=== PATIENT | male | born 1965 | race Caucasian/White ===

== ENCOUNTER 2018-07-05 20:32 | Inpatient (IN) | payer OTHER ==
[~2018-07-05] VITALS: Ht 182.9 cm; Wt 80.6 kg
[2018-07-05] MEDS ORDERED: SOD CHLORIDE 0.9% 1,000 ML IV SCH (20:35)
[2018-07-05] MEDS ORDERED: DOCUSATE SODIUM 100 MG CAP PO PRN (21:00)
[2018-07-05] MEDS ORDERED: BISACODYL (EC) 5 MG TAB PO PRN (21:00)
[2018-07-05] MEDS ORDERED: NACL 0.9% 3 ML SYG IV SCH (21:00)
[2018-07-05] MEDS ORDERED: ACETAMINOPHEN 325 MG TAB PO PRN ×2 (21:00)
[2018-07-05] MEDS ORDERED: ONDANSETRON 4 MG INJ IV PRN (21:00)
--- NOTE | 2018-07-05 21:18 | ERD ---
ER Documentation Chief Complaint Chief Complaint FLANK PAIN HPI 52-year-old gentleman transferred from [facility] for diagnosis of dehydration, gastroenteritis, acute on chronic renal failure. Patient will be boarding in the emergency room because no beds are available currently. He has no complaints. ROS All systems reviewed and are negative except as per history of present illness. Allergies Allergies: Coded Allergies: lisinopril (Verified Allergy, Unknown, 07/05/18) metformin (Verified Allergy, Unknown, 07/05/18) PMhx/Soc History of Surgery: Yes (RIGHT BKA) Anesthesia Reaction: No Hx Neurological Disorder: Yes (SEIZURES) Hx Respiratory Disorders: No Hx Cardiac Disorders: Yes (HTN) Hx Psychiatric Problems: No Hx Miscellaneous Medical Probl: Yes Hx Alcohol Use: No Hx Substance Use: No Hx Tobacco Use: Yes Smoking Status: Former smoker FmHx Family History: other Physical Exam Vitals Vital Signs Date Temp Pulse Resp B/P (MAP) Pulse Ox O2 O2 Flow FiO2 Time Delivery Rate 07/05/18 98.1 58 18 154/77 98 Room Air 20:59 (102) 07/05/18 98.1 20:59 Physical Exam General: Well developed, well nourished, no acute distress Head: Normocephalic, atraumatic. Eyes: EOM intact ENT: Moist mucous membranes Neck: Full ROM Respiratory: No respiratory distress Cardiovascular: Well perfused distally Abdominal: Nondistended : Deferred MSK: No edema, no unilateral swelling, 5/5 strength Neurologic: Alert and oriented, moving all extremities, normal speech Skin: No rash Psych: Normal mood Results 24 hrs Current Medications Medications Dose Sig/Lalo Start Time Status Last (Trade) Ordered Route PRN Stop Time Admin Dose Reason Admin Ondansetron 4 mg BRIDGE ORDER 07/05/18 HCl (Zofran PRN IV 21:00 Inj) NAUSEA/VOMITI 07/06/18 20:59 NG 650 mg ER BRIDGE 07/05/18 Acetaminophen PRN PO 21:00 (Tylenol .MILD PAIN 07/06/18 20:59 Tab) 1-3 OR TEMP Sodium 1,000 ml @ [id number] IV 07/05/18 UNV Chloride 80 mls/hr 20:35 IV Flush 3 ml PER 07/05/18 UNV (NS 3 ml) PROTOCOL IV 21:00 Ondansetron 4 mg Q6H PRN 07/05/18 UNV HCl (Zofran IV 21:00 Inj) NAUSEA/VOMITI NG 650 mg Q6H PRN 07/05/18 UNV Acetaminophen PO .PAIN 1-3 21:00 (Tylenol OR TEMP Tab) Docusate 100 mg Q12H PRN 07/05/18 UNV Sodium PO 21:00 (Colace) .CONSTIPATION Bisacodyl 5 mg DAILY PRN 07/05/18 UNV (Dulcolax) PO 21:00 .CONSTIPATION Heparin 5,000 unit Q8 SC 07/05/18 UNV Sodium 22:00 (Porcine) (Heparin (5000 Units/1ml)) Procedures/MDM Patient will be boarding in the emergency room. Admitting team notified. Patient is hemodynamically stable without evidence of emergent medical condition. Accepting care team and consultations: I discussed the current laboratory data, diagnostic imaging and emergency care provided. Admitting team: Dr. Villa Admitting team indication: Insurance directed Departure Diagnosis: Primary Impression: Acute on chronic renal failure Acute renal failure type: unspecified Additional Impressions: Dehydration Gastroenteritis Condition: Stable JESSICA BOWEN MD July 05, 2018 21:17
[2018-07-05] MEDS ORDERED: HEPARIN 5,000 UNIT/1 ML VIAL SC SCH (22:00)
[2018-07-05 22:30] VITALS: BP 184/84; PULSE 57; RESP 18
[2018-07-05 23:13] VITALS: Ht 182.9 cm; Wt 80.6 kg
[2018-07-05] MEDS ORDERED: GLIP5TAB13 PO (23:47)
[2018-07-05] MEDS ORDERED: LEVE-5 PO (23:47)
[2018-07-06] MEDS ORDERED: EYE RELIEF BOTH EYES PRN
[2018-07-06] MEDS ORDERED: DOCU-144 PO ×2 (00:03)
[2018-07-06] MEDS ORDERED: HYDR-3672 PO (00:03)
[2018-07-06] MEDS ORDERED: ASC500 PO (00:03)
[2018-07-06] MEDS ORDERED: ZINC220C5 PO (00:03)
[2018-07-06] MEDS ORDERED: CLON0.3T4 PO (00:03)
[2018-07-06] MEDS ORDERED: MULT1CAP20 PO (00:03)
[2018-07-06] MEDS ORDERED: CARV25TA79 PO (00:03)
[2018-07-06] MEDS ORDERED: AMLO-218 PO (00:03)
[2018-07-06] MEDS ORDERED: SENN-120 PO (00:07)
--- NOTE | 2018-07-06 00:07 | HP ---
Date/Time of Note Date/Time of Note DATE: 07/05/18 TIME: 23:44 Assessment/Plan VTE Prophylaxis Pharmacological prophylaxis: heparin Lines/Catheters IV Catheter Type (from [facility]): Peripheral IV Assessment/Plan Hospital Course This is a 52-year-old male being admitted to the [facility] floor for: #1 suspect gastroenteritis: Appears resolved. CT abdomen pelvis without contrast showed gastric wall thickening. Patient reports that he is now able to tolerate p.o. will continue carb controlled diet. Monitor patient. He denies any fevers right upper quadrant pain. #2 gallbladder wall thickening: Patient does not have any fevers right upper quadrant tenderness. Will order right upper quadrant ultrasound though given patient's history of cirrhosis further evaluate. #3 left great toe traumatic partial limitation: Patient does have some scant discharge noted. Will check x-rays. Wound care consult. Consider podiatry consultation #4 epilepsy: Continue Keppra #5 cirrhosis: History of hepatitis C. Will check hepatitis C RNA. Hepatitis panel. Consider initiation of spironolactone, lactulose. #6 chronic kidney disease: Unknown baseline creatinine. Creatinine 3.4. Likely secondary to underlying hypertension, diabetes mellitus. Will check renal ultrasound, will order urine studies including urinalysis and microscopic UA. Will avoid NSAIDs, avoid nephrotoxic agents. Will consult nephrology Dr. Powers #7 metabolic acidosis: Likely secondary to underlying chronic kidney disease. Continue to monitor, will consult nephrology. #8 hypertension: Resume home patient's blood pressure medications with parameters, he is unsure whether he takes clonidine on a regular basis or as needed, the current time will initiate the clonidine as PRN with parameters. #9 diabetes mellitus: With diabetic retinopathy. We will hold home oral medications, will check hemoglobin A1c, insulin sliding scale. #10 functional debility: Patient does have right BKA and he does get around using a wheelchair. He was previously at a assisted living facility and then discharged recently to an independent living where he states it is difficult for him to move around as there are ramps there in his wheelchair is not able to go there. Will consult case management/social work for placement. #11 history of DVT: Patient reports that he is previously treated with anticoagulation for DVT. Will check venous Dopplers. #11 normocytic anemia: Likely chronic in the setting of cirrhosis, chronic kidney disease. Monitor closely for any signs of bleeding. #12 DVT GI prophylaxis: Did give a dose of heparin initially, will hold further heparin as patient does report history of bleeding. Will obtain a ultrasound Doppler to rule out DVT and then initiate SCDs. Further treatment strategy will be implemented as per the clinical course Result Diagram: 07/05/[id number] Results 24hrs Laboratory Tests Test 07/05/18 21:32 07/05/18 23:21 White Blood Count 5.7 Red Blood Count 3.19 L Hemoglobin 8.6 L Hematocrit 27.8 L Mean Corpuscular Volume 87.1 Mean Corpuscular Hemoglobin 27.0 L Mean Corpuscular Hemoglobin Concent 30.9 L Red Cell Distribution Width 13.9 Platelet Count 221 Mean Platelet Volume 8.6 Immature Granulocytes % 0.300 Neutrophils % 50.1 Lymphocytes % 32.4 Monocytes % 10.3 Eosinophils % 6.6 Basophils % 0.3 Nucleated Red Blood Cells % 0.0 Immature Granulocytes # 0.020 Neutrophils # 2.9 Lymphocytes # 1.9 Monocytes # 0.6 Eosinophils # 0.4 Basophils # 0.0 Nucleated Red Blood Cells # 0.0 Sodium Level 140 Potassium Level 4.1 Chloride Level 114 H Carbon Dioxide Level 20 L Anion Gap 6 Blood Urea Nitrogen 30 H Creatinine 3.47 H Est Glomerular Filtrat Rate mL/min 19 L Glucose Level 174 Calcium Level 7.6 L Magnesium Level 1.8 Total Bilirubin 0.1 L Direct Bilirubin 0.00 Indirect Bilirubin 0.1 Aspartate Amino Transf (AST/SGOT) 21 Alanine Aminotransferase (ALT/SGPT) 22 Alkaline Phosphatase 162 H Total Protein 5.0 L Albumin 2.1 L Globulin 2.90 Albumin/Globulin Ratio 0.72 Hepatitis A Antibody Total POSITIVE H Hepatitis B Surface Antigen NEGATIVE Hepatitis B Surface Antibody POSITIVE H Hepatitis B Core Total Antibody REACTIVE H Hepatitis C Antibody REACTIVE H Bedside Glucose 162 HPI/ROS Admit Date/Time Admit Date/Time July 05, 2018 at 20:35 Hx of Present Illness Chief complaint: Abdominal pain nausea vomiting CT scan of the abdomen pelvis without contrast showed: Nonspecific dilated gallbladder, abnormally enlarged bilateral inguinal lymph nodes. Cirrhosis. Questionable diffuse gastric wall thickening. Small amount of bilateral pleural fluid as well as small volume ascites. Nonspecific mild urinary bladder wall thickening. Patient originally presented to [facility] with complaints of abdominal pain and vomitin on 07/04. Patient had a CT scan of the abdomen pelvis was performed that showed nonspecific dilated gallbladder wall, abnormally enlarged bilateral lymph nodes in the inguinal area. Cirrhosis. Questionable diffuse gastric wall thickening. Small amount of bilateral pleural fluid as well as volume ascites. Nonspecific mild urinary bladder wall thickening. Patient was given IV fluid hydration and he was given a p.o. challenge and patient was able to tolerate p.o. There was a request to transfer the patient [facility] however patient was deemed to be stable for outpatient follow-up. Apparently as per the medical records in the chart there was an issue regarding whether patient could be safely discharged to. Patient reports that he was originally living at a assisted living facility and then recently was admitted to a independent living facility. He does not know the name the facility. He reports that due to the fact that he is currently on a wheelchair secondary to his BKA that he was unable to get proper care at the independent living facility and unable to take his medications. He previously is from [place]. He does not have any family. He does report that he at one point was put on hospice and was started on methadone. He states though that he does not need to methadone and that he mainly just requires [place] at night for his chronic left great toe pain. Patient at the current time reports that he had a bowel movement prior to transfer to [facility]. And that he reports that he was able to tolerate p.o. without any problem. Patient is a very pleasant male on examination. I had I done legs lump allergies: Lisinopril, metformin Medications: Keppra Glipizide Hydralazine Colace Amlodipine Methadone 40 mg p.o. daily Ascorbic acid Clonidine Vitamin B12 vitamin Carvedilol Zinc sulfate ROS Const: As per HPI Eyes : No pain discharge or redness or change in visual acuity ENT: No pain, sore throat, congestion, congestion, dysphagia or discharge Respiratory: No shortness of breath, cough, sputum, wheezing, or pleuritic pain Cardiovascular: No chest pain, palpitation, PND, or edema GI : As per HPI Genitourinary: No dysuria, hematuria, flank pain , discharge or CVA tenderness Musculoskeletal: As per HPI Skin: No rash, bruising or hives Neuro: No headache, dizziness, syncope, seizure, focal weakness Endocrine: No polyuria, polydipsia, temperature intolerance Psych: No hallucination, depression, anxiety or suicidal ideation PMH/Family/Social Past Medical History Diabetes mellitus type 2, hypertension, epilepsy, diabetic retinopathy, hepatitis C with cirrhosis, peripheral vascular disease, chronic kidney disease Medications Current Medications Ondansetron HCl (Zofran Inj) 4 mg BRIDGE ORDER PRN IV NAUSEA/VOMITING; Start 07/05/18 at 21:00; Stop 07/06/18 at 20:59 Acetaminophen (Tylenol Tab) 650 mg ER BRIDGE PRN PO .MILD PAIN 1-3 OR TEMP; Start 07/05/18 at 21:00; Stop 07/06/18 at 20:59 Sodium Chloride 1,000 ml @ 80 mls/hr [id number] IV Last administered on 07/05/18at 23:07; Admin Dose 80 MLS/HR; Start 07/05/18 at 20:35 IV Flush (NS 3 ml) 3 ml PER PROTOCOL IV ; Start 07/05/18 at 21:00 Ondansetron HCl (Zofran Inj) 4 mg Q6H PRN IV NAUSEA/VOMITING; Start 07/05/18 at 21:00 Acetaminophen (Tylenol Tab) 650 mg Q6H PRN PO .PAIN 1-3 OR TEMP; Start 07/05/18 at 21:00 Docusate Sodium (Colace) 100 mg Q12H PRN PO .CONSTIPATION; Start 07/05/18 at 21:00 Bisacodyl (Dulcolax) 5 mg DAILY PRN PO .CONSTIPATION; Start 07/05/18 at 21:00 Heparin Sodium (Porcine) (Heparin (5000 Units/1ml)) 5,000 unit Q8 SC Last administered on 07/05/18at 23:35; Admin Dose 5,000 UNIT; Start 07/05/18 at 22:00 Naphazoline HCl (Clear Eyes / Naphcon) 2 drop Q4H PRN BOTH EYES DRY EYES; Start 07/06/18 at 00:00; Status UNV Acetaminophen/ Hydrocodone Bitart ([place] (5/325)) 1 tab QHS PO ; Start 07/06/18 at 00:00; Status UNV Multi-Ingredient Ointment (Eucerin Cream) 1 applic BID TOP ; Start 07/06/18 at 00:00; Status UNV Coded Allergies: lisinopril (Verified Allergy, Unknown, 07/05/18) metformin (Verified Allergy, Unknown, 07/05/18) turkey (Verified Allergy, Unknown, neck swelling , 07/06/18) Past Surgical History Right BKA Family History Significant Family History: no pertinent family hx Social History Alcohol Use: none Smoking Status: Current every day smoker Drug Use: none Exam/Review of Systems Vital Signs Vitals Vital Signs Date Temp Pulse Resp B/P (MAP) Pulse Ox O2 O2 Flow FiO2 Time Delivery Rate 07/05/18 98.1 58 18 154/77 98 Room Air 20:59 (102) Exam Exam General: Patient is a pleasant male he is currently lying in bed in no acute distress HEENT: Atraumatic, normocephalic. The pupils are equal, round and reactive. Extraocular motor are intact Neck: Supple with full range of motion. No rigidity or meningismus Chest: Nontender Lungs: Clear to auscultation bilaterally no crackles rales or wheezing Heart: Normal S1-S2, Regular rhythm and rate. No murmur, S3, or S4 Abdomen: Soft , nontender, mildly distended, bowel sounds are present. No guarding no rebound tenderness , No masses or organomegaly. No costovertebral temporal angle mass Extremities: Right BKA, left lower extremity traumatic partial amputation of the left great toe skin: Left great toe partial traumatic amputation with some slight drainage, no redness or erythema noted. Scaling/dry skin of left lower extremity, mild left heel pressure ulcer Neurologic: Normal mental status, speech normal, cranial nerves II through XII are intact, motor and sensory are intact, no focal weakness DUONG HERNANDEZ July 05, 2018 23:55
[2018-07-06] MEDS ORDERED: METH10TA2 PO (00:17)
[2018-07-06 00:30] VITALS: BP 171/77; PULSE 54
[2018-07-06] MEDS: HYDROCODONE/APAP (5/325) TAB PO SCH ×2 (00:46→20:52)
[2018-07-06] MEDS: AMLODIPINE 10 MG TAB PO SCH ×3 (00:47→20:53)
[2018-07-06] MEDS: LEVETIRACETAM 500 MG TAB PO SCH ×3 (00:48→20:53)
[2018-07-06] MEDS ORDERED: GLUCOSE GEL 15 GRAM TUBE PO PRN ×2 (01:00)
[2018-07-06] MEDS ORDERED: GLUCOSE GEL 15 GRAM TUBE BUCCAL PRN (01:00)
[2018-07-06] MEDS ORDERED: GLUCAGON 1 MG INJ IM PRN (01:00)
[2018-07-06] MEDS ORDERED: DEXTROSE 50% 50 ML SYRINGE IV PRN ×2 (01:00)
[2018-07-06] MEDS: ACCU-CHEK XX SCH (01:33)
[2018-07-06 02:00] VITALS: BP 164/84; PULSE 66; RESP 18
[2018-07-06] MEDS: EUCERIN 113 GM CR TOP SCH ×3 (02:23→20:58)
[2018-07-06] MEDS: INSULIN ASPART [NOVOLOG] 3 ML PEN SC SCH ×4 (08:00→20:54)
[2018-07-06 09:00] VITALS: BP 156/76; PULSE 63; RESP 17
--- NOTE | 2018-07-06 09:00 | CONS ---
DATE OF ADMISSION: 07/05/2018 DATE OF CONSULTATION: 07/06/2018 TYPE OF CONSULTATION: Nephrology. REASON FOR CONSULTATION: Chronic kidney disease, possible acute kidney injury. PHYSICIAN REQUESTING CONSULT: Dr. Hernandez. HISTORY OF PRESENT ILLNESS: This is a 52-year-old male with a past medical history of chronic kidney disease stage IV with a baseline EGFR around 30 mL per minute per patient, history of cirrhosis, his tory of urinary tract infection, history of seizure disorder, history of diabetes, hypertension, hist ory of methadone use, who was transferred to [facility] for nausea and vomiting. T he patient initially presented to [facility] with complaints of abdominal pain. The patient had a CT scan of the pelvis at that time, which showed evidence of dilated gallbladder wall a nd large bilateral lymph nodes and cirrhosis. The patient also noted to have small volume ascites. The patient was previously living in [place]. He was then transferred to [facility] for continued care. In terms of patient's renal history, the patient states he has underlying chronic kidney disease, whi ch he describes around stage IV. The patient states he has seen kidney doctors in the past and was t old he has a 30% kidney function. The patient denies any active hemoptysis, hematemesis or hematoche leticia. PAST MEDICAL HISTORY: As stated above, history of chronic kidney disease, history of diabetes, histo ry of seizure disorder, history of hypertension, history of methadone use, history of peripheral vasc ular disease. PAST SURGICAL HISTORY: Status post right below knee amputation. FAMILY HISTORY: No family history of kidney disease. SOCIAL HISTORY: Previous history of substance abuse. Positive tobacco use. MEDICATIONS: The patient's medications have been reviewed. REVIEW OF SYSTEMS: A 14-point review of systems was conducted. Pertinent positives stated in HPI, o therwise negative. PHYSICAL EXAMINATION: VITAL SIGNS: Blood pressure is 164/84, respirations 18, pulse 66, temperature 98.4. HEENT: Head is normocephalic. NECK: Supple. HEART: Regular rate. LUNGS: Show diminished breath sounds at the base. ABDOMEN: Soft, nontender to palpation without rebound or guarding. EXTREMITIES: Negative for clubbing, cyanosis. Positive excoriations, dry flaky skin, positive right below-knee amputation. MUSCULOSKELETAL: No joint effusion. NEUROLOGIC: No focal deficits. LABORATORY DATA: Reviewed. Urinalysis has been reviewed. IMAGING STUDIES: Renal ultrasound was reviewed, showed increased diffuse echogenicity of the kidneys consistent with medical renal disease. ASSESSMENT AND PLAN: This is a 52-year-old male who presents with: 1. Nonoliguric acute kidney injury on top of chronic kidney disease stage IV with a previous EGFR ar ound 30 mL per minute per patient. Etiology of current acute kidney injury may be secondary to hemod ynamics, possibility of progression of chronic kidney disease is a consideration. The patient's init ial urinalysis was reviewed showed mild hematuria. Positive proteinuria. Renal ultrasound was revie wed, showed increased echogenicity consistent with chronic kidney disease, no evidence of obstruction . Plan at this point is to repeat UA with microanalysis. We will quantify the patient's proteinuria . We would otherwise continue current treatment plans, supportive care, renally dose all medications . 2. Anemia. Continue to monitor hemoglobin and hematocrit levels. 3. Mineral bone disorder, monitor calcium and phosphorus levels. 4. Hypertension. Continue current blood pressure regimen. We would consider starting JOSUE inhibitor or ARB once renal function is noted to be stable. 5. History of hepatitis C. We would check a viral load. 6. History of seizure disorder, continue Keppra. 7. Cirrhosis. Continue current medical management. 8. Metabolic acidosis likely secondary to underlying chronic kidney disease. Continue to monitor. Consider Bicitra. 9. History of deep vein thrombosis. Followup venous Doppler ultrasound. 10. Diabetes. Continue current insulin regimen. 11. History of peripheral vascular disease with right below-knee amputation. Continue medical manag ement. Thank you, Dr. Hernandez, for this interesting consult. It will be a pleasure to follow the patient wi th you throughout the hospital course. Dictated By: BON WHITAKER DO NR/NTS Conf#: [id number] DID#: [id number] CC: DUONG HERNANDEZ MD;*End*
[2018-07-06] MEDS: ZINC SULFATE 220 MG CAP PO SCH (10:01)
[2018-07-06] MEDS: ASCORBIC ACID 500 MG TAB PO SCH ×2 (10:02→20:53)
[2018-07-06] MEDS: DOCUSATE SODIUM 100 MG CAP PO SCH ×2 (10:02→20:52)
[2018-07-06] MEDS: ONDANSETRON 4 MG INJ IV PRN (11:02)
[2018-07-06 14:24] VITALS: BP 154/72; PULSE 62; RESP 18
--- NOTE | 2018-07-06 15:42 | PN ---
Date/Time of Note Date/Time of Note DATE: 07/06/18 TIME: 15:34 Assessment/Plan VTE Prophylaxis Risk score (from Ns)>0 risk: 4 SCD applied (from [facility]): No SCD contraindicated: other Pharmacological prophylaxis: heparin Lines/Catheters IV Catheter Type (from [facility]): Saline Lock Assessment/Plan Assessment/Plan 1. Acute gastritis, on PPI, zofran prn, IVF 2. Renal failure, acute on chronic, IVF, follow up with BMP 3. Left great toe traumatic partial limitation: Patient does have some scant discharge noted. Will check x-rays. Wound care consult. Consider podiatry consultation 4. Epilepsy: Continue Keppra 5. Hepatitis B and C, liver cirrhosis, follow up with PCP outpatient 6. HTN, antihypertensives 7. DM, on ISS 8. Right BKA 9. History of DVT, treated 10. Normocytic anemia, ZCKD related, follow up with H/H 11. DVT prophylaxis: heparin Result Diagram: 07/06/1861807/06/18618 Results 24hrs Laboratory Tests Test 07/05/18 21:32 07/05/18 23:21 07/06/18 00:50 07/06/18 06:19 White Blood Count 5.7 5.4 Red Blood Count 3.19 L 3.06 L Hemoglobin 8.6 L 8.3 L Hematocrit 27.8 L 26.5 L Mean Corpuscular 87.1 86.6 Volume Mean Corpuscular 27.0 L 27.1 L Hemoglobin Mean Corpuscular 30.9 L 31.3 L Hemoglobin Concen t Red Cell 13.9 14.1 Distribution Width Platelet Count 221 214 Mean Platelet 8.6 8.7 Volume Immature 0.300 0.400 Granulocytes % Neutrophils % 50.1 44.2 Lymphocytes % 32.4 38.1 Monocytes % 10.3 9.1 Eosinophils % 6.6 7.8 H Basophils % 0.3 0.4 Nucleated Red 0.0 0.0 Blood Cells % Immature 0.020 0.020 Granulocytes # Neutrophils # 2.9 2.4 Lymphocytes # 1.9 2.0 Monocytes # 0.6 0.5 Eosinophils # 0.4 0.4 Basophils # 0.0 0.0 Nucleated Red 0.0 0.0 Blood Cells # Sodium Level 140 141 Potassium Level 4.1 3.8 Chloride Level 114 H 117 H Carbon Dioxide 20 L 20 L Level Anion Gap 6 4 L Blood Urea 30 H 30 H Nitrogen Creatinine 3.47 H 3.53 H Est Glomerular 19 L 18 L Filtrat Rate mL/min Glucose Level 174 103 # Calcium Level 7.6 L 7.8 L Magnesium Level 1.8 1.7 Total Bilirubin 0.1 L 0.2 Direct Bilirubin 0.00 0.00 Indirect 0.1 0.2 Bilirubin Aspartate Amino 21 22 Transf (AST/SGOT) Alanine 22 20 Aminotransferase (ALT/SGPT) Alkaline 162 H 159 H Phosphatase Total Protein 5.0 L 5.0 L Albumin 2.1 L 2.0 L Globulin 2.90 3.00 Albumin/Globulin 0.72 0.66 Ratio Hepatitis A POSITIVE H Antibody Total Hepatitis B NEGATIVE Surface Antigen Hepatitis B POSITIVE H Surface Antibody Hepatitis B Core REACTIVE H Total Antibody Hepatitis C REACTIVE H Antibody Bedside Glucose 162 Urine Color YELLOW Urine Clarity SLIGHTLY CLOUDY A Urine pH 6.0 Urine Specific 1.013 [place] Urine Ketones NEGATIVE Urine Nitrite NEGATIVE Urine Bilirubin NEGATIVE Urine NEGATIVE Urobilinogen Urine Leukocyte NEGATIVE Esterase Urine Microscopic 9 H RBC Urine Microscopic 3 WBC Urine Hemoglobin NEGATIVE Urine Random 57 Sodium Urine Glucose 3+ H Urine Total 3+ H Protein Hemoglobin A1c 6.4 H Triglycerides 233 H Level Cholesterol Level 157 LDL Cholesterol, 81 Calculated HDL Cholesterol 29 Cholesterol/HDL 5.4 Ratio Thyroid 5.240 H Stimulating Hormone (TSH) Test 07/06/18 08:18 07/06/18 11:51 Bedside Glucose 119 155 Subjective 24 Hr Interval Summary Free Text/Dictation vomited this morning. No abdominal pain, no diarrhea Exam/Review of Systems Exam Vitals Vital Signs Date Temp Pulse Resp B/P (MAP) Pulse Ox O2 O2 Flow FiO2 Time Delivery Rate 07/06/18 99.1 62 18 154/72 96 14:24 (99) 07/05/18 Room Air 20:59 Intake and Output 07/05/18 07/05/18 07/06/18 1414:59 22:59 06:59 IntakeIntake Total 480 ml OutputOutput Total 150 ml BalanceBalance 330 ml Constitutional: alert, oriented, well developed Psych: no complaints, nl mood/affect Head: normocephalic, atraumatic Eyes: nl conjunctiva, EOMI, nl lids ENMT: nl external ears & nose, nl lips & teeth, nl nasal mucosa & septum Neck: supple, non-tender Respiratory: clear to auscultation, normal air movement; No congested cough, No crackles/rales, No diminished breath sounds, No intercostal retraction, No labored breathing, No respirations, No tactile fremitus, No wheezing, No other Cardiovascular: regular rate and rhythm, nl pulses; No bruits, No diastolic murmur, No edema, No gallop, No irregular rhythm, No jugular venous distention (JVD), No murmurs/extra sounds, No rub, No systolic murmur, No S3, No S4, No other Gastrointestinal: soft, nl liver, spleen, non-tender Musculoskeletal: nl extremities to inspection Extremities: normal pulses, other (right BKA); No calf tenderness, No cyanosis, No clubbing, No edema, No pitting pedal edema, No palpable cord, No tenderness Neurological: [employer] II-XII intact, nl mental status, nl speech, nl strength Skin: nl turgor Results Results 24hrs Laboratory Tests Test 07/05/18 21:32 07/05/18 23:21 07/06/18 00:50 07/06/18 06:19 White Blood Count 5.7 5.4 Red Blood Count 3.19 L 3.06 L Hemoglobin 8.6 L 8.3 L Hematocrit 27.8 L 26.5 L Mean Corpuscular 87.1 86.6 Volume Mean Corpuscular 27.0 L 27.1 L Hemoglobin Mean Corpuscular 30.9 L 31.3 L Hemoglobin Concen t Red Cell 13.9 14.1 Distribution Width Platelet Count 221 214 Mean Platelet 8.6 8.7 Volume Immature 0.300 0.400 Granulocytes % Neutrophils % 50.1 44.2 Lymphocytes % 32.4 38.1 Monocytes % 10.3 9.1 Eosinophils % 6.6 7.8 H Basophils % 0.3 0.4 Nucleated Red 0.0 0.0 Blood Cells % Immature 0.020 0.020 Granulocytes # Neutrophils # 2.9 2.4 Lymphocytes # 1.9 2.0 Monocytes # 0.6 0.5 Eosinophils # 0.4 0.4 Basophils # 0.0 0.0 Nucleated Red 0.0 0.0 Blood Cells # Sodium Level 140 141 Potassium Level 4.1 3.8 Chloride Level 114 H 117 H Carbon Dioxide 20 L 20 L Level Anion Gap 6 4 L Blood Urea 30 H 30 H Nitrogen Creatinine 3.47 H 3.53 H Est Glomerular 19 L 18 L Filtrat Rate mL/min Glucose Level 174 103 # Calcium Level 7.6 L 7.8 L Magnesium Level 1.8 1.7 Total Bilirubin 0.1 L 0.2 Direct Bilirubin 0.00 0.00 Indirect 0.1 0.2 Bilirubin Aspartate Amino 21 22 Transf (AST/SGOT) Alanine 22 20 Aminotransferase (ALT/SGPT) Alkaline 162 H 159 H Phosphatase Total Protein 5.0 L 5.0 L Albumin 2.1 L 2.0 L Globulin 2.90 3.00 Albumin/Globulin 0.72 0.66 Ratio Hepatitis A POSITIVE H Antibody Total Hepatitis B NEGATIVE Surface Antigen Hepatitis B POSITIVE H Surface Antibody Hepatitis B Core REACTIVE H Total Antibody Hepatitis C REACTIVE H Antibody Bedside Glucose 162 Urine Color YELLOW Urine Clarity SLIGHTLY CLOUDY A Urine pH 6.0 Urine Specific 1.013 [place] Urine Ketones NEGATIVE Urine Nitrite NEGATIVE Urine Bilirubin NEGATIVE Urine NEGATIVE Urobilinogen Urine Leukocyte NEGATIVE Esterase Urine Microscopic 9 H RBC Urine Microscopic 3 WBC Urine Hemoglobin NEGATIVE Urine Random 57 Sodium Urine Glucose 3+ H Urine Total 3+ H Protein Hemoglobin A1c 6.4 H Triglycerides 233 H Level Cholesterol Level 157 LDL Cholesterol, 81 Calculated HDL Cholesterol 29 Cholesterol/HDL 5.4 Ratio Thyroid 5.240 H Stimulating Hormone (TSH) Test 07/06/18 08:18 07/06/18 11:51 Bedside Glucose 119 155 Medications Medication Current Medications Ondansetron HCl (Zofran Inj) 4 mg BRIDGE ORDER PRN IV NAUSEA/VOMITING; Start 07/05/18 at 21:00; Stop 07/06/18 at 20:59 Acetaminophen (Tylenol Tab) 650 mg ER BRIDGE PRN PO .MILD PAIN 1-3 OR TEMP; Start 07/05/18 at 21:00; Stop 07/06/18 at 20:59 IV Flush (NS 3 ml) 3 ml PER PROTOCOL IV ; Start 07/05/18 at 21:00 Ondansetron HCl (Zofran Inj) 4 mg Q6H PRN IV NAUSEA/VOMITING Last administered on 07/06/18at 11:02; Admin Dose 4 MG; Start 07/05/18 at 21:00 Acetaminophen (Tylenol Tab) 650 mg Q6H PRN PO .PAIN 1-3 OR TEMP; Start 07/05/18 at 21:00 Docusate Sodium (Colace) 100 mg Q12H PRN PO .CONSTIPATION; Start 07/05/18 at 21:00 Bisacodyl (Dulcolax) 5 mg DAILY PRN PO .CONSTIPATION; Start 07/05/18 at 21:00 Non-Formulary Medication 1 ea Q4H PRN BOTH EYES DRY EYES; Start 07/06/18 at 00:00 Acetaminophen/ Hydrocodone Bitart ([place] (5/325)) 1 tab QHS PO Last administered on 07/06/18 00:46; Admin Dose 1 TAB; Start 07/06/18 at 00:00 Multi-Ingredient Ointment (Eucerin Cream) 1 applic BID TOP Last administered on 07/06/18 10:03; Admin Dose 1 APPLIC; Start 07/06/18 at 00:00 Amlodipine Besylate (Norvasc) 10 mg BID PO Last administered on 07/06/18 10:08; Admin Dose 10 MG; Start 07/06/18 at 00:30 Ascorbic Acid (Vitamin C) 1,000 mg BID PO Last administered on 07/06/18 10:02; Admin Dose 1,000 MG; Start 07/06/18 at 09:00 Carvedilol (Coreg) 25 mg BID PO Last administered on 07/06/18 10:08; Admin Dose 25 MG; Start 07/06/18 at 00:30 Clonidine (Catapres) 0.3 mg Q8 PRN PO ELEVATED BLOOD PRESSURE; Start 07/06/18 at 00:30 Docusate Sodium (Colace) 200 mg QAM PO Last administered on 07/06/18 10:02; Admin Dose 200 MG; Start 07/06/18 at 09:00 Docusate Sodium (Colace) 200 mg QPM PO ; Start 07/06/18 at 21:00 Hydralazine HCl (Apresoline) 100 mg Q8H PO Last administered on 07/06/18 10:08; Admin Dose 100 MG; Start 07/06/18 at 00:30 Levetiracetam (Keppra) 500 mg BID PO Last administered on 07/06/18 10:01; Admin Dose 500 MG; Start 07/06/18 at 00:30 Senna (Senokot) 2 tab QHS PO ; Start 5/15/19 at 21:00 Zinc Sulfate (Zinc Sulfate) 220 mg DAILY PO Last administered on 07/06/18at 10:01; Admin Dose 220 MG; Start 07/06/18 at 09:00 Diagnostic Test (Pha) (Accu-Chek) 1 ea 02 XX ; Start 07/06/18 at 02:00 Insulin Aspart (Novolog Insulin Pen) NOVOLOG *MILD* ALGORITHM WITH MEALS BEDTIME SC Last administered on 07/06/18at 11:53; Admin Dose 1 UNIT; Start 07/06/18 at 08:00 Miscellaneous Information 1 ea NOTE XX ; Start 07/06/18 at 01:00 Glucose (Glutose) 15 gm Q15M PRN PO DECREASED GLUCOSE; Start 07/06/18 at 01:00 Glucose (Glutose) 22.5 gm Q15M PRN PO DECREASED GLUCOSE; Start 07/06/18 at 01:00 Dextrose (D50w Syringe) 25 ml Q15M PRN IV DECREASED GLUCOSE; Start 07/06/18 at 01:00 Dextrose (D50w Syringe) 50 ml Q15M PRN IV DECREASED GLUCOSE; Start 07/06/18 at 01:00 Glucagon (Glucagen) 1 mg Q15M PRN IM DECREASED GLUCOSE; Start 07/06/18 at 01:00 Glucose (Glutose) 15 gm Q15M PRN BUCCAL DECREASED GLUCOSE; Start 07/06/18 at 0 1:00 Miscellaneous Information Patients own medicat... BID@ XX ; Start 07/06/18 at 10:00 JEAN-PAUL SALAMANCA MD July 06, 2018 15:42
[2018-07-06 20:25] VITALS: BP 168/81; PULSE 69; RESP 18
[2018-07-06] MEDS: SENNA TAB PO SCH (20:53)
[2018-07-06] MEDS: BALSAM PERU/CASTOR OIL 60 GM TUBE TOP SCH (23:05)
[2018-07-07 02:00] VITALS: BP 149/70; PULSE 85; RESP 18
[2018-07-07] MEDS: ACCU-CHEK XX SCH (02:00)
[2018-07-07] MEDS: PANTOPRAZOLE (EC) 40 MG TAB PO SCH (06:01)
[2018-07-07] MEDS: ONDANSETRON 4 MG INJ IV PRN (08:22)
[2018-07-07] MEDS: DOCUSATE SODIUM 100 MG CAP PO SCH ×2 (08:27→20:33)
[2018-07-07] MEDS: AMLODIPINE 10 MG TAB PO SCH (08:27)
[2018-07-07] MEDS: LEVETIRACETAM 500 MG TAB PO SCH ×2 (08:27→20:33)
[2018-07-07] MEDS: ZINC SULFATE 220 MG CAP PO SCH (08:28)
[2018-07-07] MEDS: ASCORBIC ACID 500 MG TAB PO SCH ×2 (08:28→20:33)
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
[2018-07-07] MEDS: INSULIN ASPART [NOVOLOG] 3 ML PEN SC SCH ×4 (08:35→20:36)
[2018-07-07] MEDS: BALSAM PERU/CASTOR OIL 60 GM TUBE TOP SCH ×2 (08:36→20:35)
[2018-07-07] MEDS: EUCERIN 113 GM CR TOP SCH ×2 (08:36→20:35)
[2018-07-07 09:08] VITALS: BP 183/90; PULSE 67; RESP 18
--- NOTE | 2018-07-07 12:38 | PN ---
Date/Time of Note Date/Time of Note DATE: 07/07/18 TIME: 12:16 Assessment/Plan VTE Prophylaxis Risk score (from Ns)>0 risk: 4 [place]CD applied ([place] [facility]CD contraindicated: other Pharmacological prophylaxis: heparin Lines/Catheters IV Catheter Type (from [facility] Saline Lock Assessment/Plan Assessment/Plan 1. Acute gastritis, improved on PPI, zofran prn 2. HTN, uncontrolled, change norvasc to procardia 3. CKD, stagge 4, follow up with BMP 4. Left great toe traumatic partial limitation: Patient does have some scant discharge noted. Will check x-rays. Wound care consult. Consider podiatry consultation 5. Epilepsy: Continue Keppra 6. Hepatitis B and C, liver cirrhosis, follow up with PCP outpatient 7. DM, on ISS 8. Right BKA 9. History of DVT, treated 10. Normocytic anemia, ZCKD related, follow up with H/H 11. DVT prophylaxis: heparin Result Diagram: 07/07/18 0640 07/07/18 0640 Results 24hrs Laboratory Tests Test 07/06/18 17:42 07/06/18 20:51 07/07/18 06:40 07/07/18 08:33 Bedside Glucose 129 133 143 White Blood Count 5.4 Red Blood Count 3.35 L Hemoglobin 9.1 L Hematocrit 29.0 L Mean Corpuscular 86.6 Volume Mean Corpuscular 27.2 L Hemoglobin Mean Corpuscular 31.4 L Hemoglobin Concent Red Cell 13.8 Distribution Width Platelet Count 244 Mean Platelet Volume 8.6 Immature 0.400 Granulocytes % Neutrophils % 53.3 Lymphocytes % 30.4 Monocytes % 9.9 Eosinophils % 5.4 Basophils % 0.6 Nucleated Red Blood 0.0 Cells % Immature 0.020 Granulocytes # Neutrophils # 2.9 Lymphocytes # 1.6 Monocytes # 0.5 Eosinophils # 0.3 Basophils # 0.0 Nucleated Red Blood 0.0 Cells # Sodium Level 141 Potassium Level 4.0 Chloride Level 118 H Carbon Dioxide Level 19 L Anion Gap 4 L Blood Urea Nitrogen 28 H Creatinine 3.49 H Est Glomerular 18 L Filtrat Rate mL/min Glucose Level 108 Calcium Level 8.0 L Total Bilirubin 0.2 Direct Bilirubin 0.00 Indirect Bilirubin 0.2 Aspartate Amino 25 Transf (AST/SGOT) Alanine 22 Aminotransferase (AL T/SGPT) Alkaline Phosphatase 190 H Total Protein 5.5 L Albumin 2.3 L Globulin 3.20 Albumin/Globulin 0.71 Ratio Subjective 24 Hr Interval Summary Free Text/Dictation no nausea or vomiting, no abdominal pain Exam/Review of Systems Exam Vitals Vital Signs Date Temp Pulse Resp B/P (MAP) Pulse Ox O2 O2 Flow FiO2 Time Delivery Rate 07/07/18 98.5 67 18 183/90 97 09:08 (121) 07/07/18 Room Air 02:00 Intake and Output 07/06/18 07/06/18 07/07/18 1515:00 23:00 07:00 IntakeIntake Total 520 ml 600 ml 720 ml OutputOutput Total 300 ml 200 ml 725 ml BalanceBalance 220 ml 400 ml -5 ml Constitutional: alert, oriented, well developed Head: normocephalic, atraumatic Eyes: nl conjunctiva, EOMI, nl lids ENMT: nl external ears & nose, nl lips & teeth, nl nasal mucosa & septum Neck: supple, non-tender Respiratory: clear to auscultation, normal air movement; No congested cough, No crackles/rales, No diminished breath sounds, No intercostal retraction, No labored breathing, No respirations, No tactile fremitus, No wheezing, No other Cardiovascular: regular rate and rhythm, nl pulses; No bruits, No diastolic murmur, No edema, No gallop, No irregular rhythm, No jugular venous distention (JVD), No murmurs/extra sounds, No rub, No systolic murmur, No S3, No S4, No other Gastrointestinal: soft, nl liver, spleen, non-tender; No ascites, No bowel sounds, No distended, No firm, No hepatomegaly, No mass, No rebound or guarding, No splenomegaly, No surgical scars, No tender, No other Musculoskeletal: nl extremities to inspection Extremities: normal pulses; No calf tenderness, No cyanosis, No clubbing, No edema, No pitting pedal edema, No palpable cord, No tenderness, No other Neurological: [employer] II-XII intact, nl mental status, nl speech, nl strength Results Results 24hrs Laboratory Tests Test 07/06/18 17:42 07/06/18 20:51 07/07/18 06:40 07/07/18 08:33 Bedside Glucose 129 133 143 White Blood Count 5.4 Red Blood Count 3.35 L Hemoglobin 9.1 L Hematocrit 29.0 L Mean Corpuscular 86.6 Volume Mean Corpuscular 27.2 L Hemoglobin Mean Corpuscular 31.4 L Hemoglobin Concent Red Cell 13.8 Distribution Width Platelet Count 244 Mean Platelet Volume 8.6 Immature 0.400 Granulocytes % Neutrophils % 53.3 Lymphocytes % 30.4 Monocytes % 9.9 Eosinophils % 5.4 Basophils % 0.6 Nucleated Red Blood 0.0 Cells % Immature 0.020 Granulocytes # Neutrophils # 2.9 Lymphocytes # 1.6 Monocytes # 0.5 Eosinophils # 0.3 Basophils # 0.0 Nucleated Red Blood 0.0 Cells # Sodium Level 141 Potassium Level 4.0 Chloride Level 118 H Carbon Dioxide Level 19 L Anion Gap 4 L Blood Urea Nitrogen 28 H Creatinine 3.49 H Est Glomerular 18 L Filtrat Rate mL/min Glucose Level 108 Calcium Level 8.0 L Total Bilirubin 0.2 Direct Bilirubin 0.00 Indirect Bilirubin 0.2 Aspartate Amino 25 Transf (AST/SGOT) Alanine 22 Aminotransferase (AL T/SGPT) Alkaline Phosphatase 190 H Total Protein 5.5 L Albumin 2.3 L Globulin 3.20 Albumin/Globulin 0.71 Ratio Medications Medication Current Medications IV Flush (NS 3 ml) 3 ml PER PROTOCOL IV ; Start 07/05/18 at 21:00 Ondansetron HCl (Zofran Inj) 4 mg Q6H PRN IV NAUSEA/VOMITING Last administered on 07/07/18at 08:22; Admin Dose 4 MG; Start 07/05/18 at 21:00 Acetaminophen (Tylenol Tab) 650 mg Q6H PRN PO .PAIN 1-3 OR TEMP Last administered on 07/07/18at 08:23; Admin Dose 650 MG; Start 07/05/18 at 21:00 Docusate Sodium (Colace) 100 mg Q12H PRN PO .CONSTIPATION; Start 07/05/18 at 21:00 Bisacodyl (Dulcolax) 5 mg DAILY PRN PO .CONSTIPATION; Start 07/05/18 at 21:00 Non-Formulary Medication 1 ea Q4H PRN BOTH EYES DRY EYES; Start 07/06/18 at 00:00 Acetaminophen/ Hydrocodone Bitart ([place] (5/325)) 1 tab QHS PO Last administered on 07/06/18 20:52; Admin Dose 1 TAB; Start 07/06/18 at 00:00 Multi-Ingredient Ointment (Eucerin Cream) 1 applic BID TOP Last administered on 07/07/18 08:36; Admin Dose 1 APPLIC; Start 07/06/18 at 00:00 Amlodipine Besylate (Norvasc) 10 mg BID PO Last administered on 07/07/18 08:27; Admin Dose 10 MG; Start 07/06/18 at 00:30 Ascorbic Acid (Vitamin C) 1,000 mg BID PO Last administered on 07/07/18 08:28; Admin Dose 1,000 MG; Start 07/06/18 at 09:00 Carvedilol (Coreg) 25 mg BID PO Last administered on 07/07/18 08:27; Admin Dose 25 MG; Start 07/06/18 at 00:30 Docusate Sodium (Colace) 200 mg QAM PO Last administered on 07/07/18 08:27; Admin Dose 200 MG; Start 07/06/18 at 09:00 Docusate Sodium (Colace) 200 mg QPM PO Last administered on 07/06/18 20:52; Admin Dose 200 MG; Start 07/06/18 at 21:00 Hydralazine HCl (Apresoline) 100 mg Q8H PO Last administered on 07/07/18 08:23; Admin Dose 100 MG; Start 07/06/18 at 00:30 Levetiracetam (Keppra) 500 mg BID PO Last administered on 07/07/18 08:27; Admin Dose 500 MG; Start 07/06/18 at 00:30 Senna (Senokot) 2 tab QHS PO Last administered on 07/06/18 20:53; Admin Dose 2 TAB; Start 07/06/18 at 21:00 Zinc Sulfate (Zinc Sulfate) 220 mg DAILY PO Last administered on 07/07/18 08:28; Admin Dose 220 MG; Start 07/06/18 at 09:00 Diagnostic Test (Pha) (Accu-Chek) 1 ea 02 XX ; Start 07/06/18 at 02:00 Insulin Aspart (Novolog Insulin Pen) NOVOLOG *MILD* ALGORITHM WITH MEALS BEDTIME SC Last administered on 07/07/18 12:07; Admin Dose 1 UNIT; Start 07/06/18 at 08:00 Miscellaneous Information 1 ea NOTE XX ; Start 07/06/18 at 01:00 Glucose (Glutose) 15 gm Q15M PRN PO DECREASED GLUCOSE; Start 07/06/18 at 01:00 Glucose (Glutose) 22.5 gm Q15M PRN PO DECREASED GLUCOSE; Start 07/06/18 at 01:00 Dextrose (D50w Syringe) 25 ml Q15M PRN IV DECREASED GLUCOSE; Start 07/06/18 at 01:00 Dextrose (D50w Syringe) 50 ml Q15M PRN IV DECREASED GLUCOSE; Start 07/06/18 at 01:00 Glucagon (Glucagen) 1 mg Q15M PRN IM DECREASED GLUCOSE; Start 07/06/18 at 01:00 Glucose (Glutose) 15 gm Q15M PRN BUCCAL DECREASED GLUCOSE; Start 07/06/18 at 01:00 Miscellaneous Information Patients own medicat... BID@10,16 XX ; Start 07/06/18 at 10:00 Clonidine (Catapres) 0.1 mg Q8 PRN PO ELEVATED BLOOD PRESSURE; Start 07/06/18 at 16:00 Pantoprazole (Protonix Tab) 40 mg DAILY@06 PO Last administered on 07/07/18at 06:01; Admin Dose 40 MG; Start 07/07/18 at 06:00 JEAN-PAUL SALAMANCA MD July 07, 2018 12:34
[2018-07-07 14:52] VITALS: BP 172/81; PULSE 64; RESP 18
[2018-07-07] MEDS: NIFEdipine (XL) 90 MG TAB PO SCH (16:30)
[2018-07-07 17:48] VITALS: BP 156/82; PULSE 67
[2018-07-07 20:20] VITALS: BP 152/82; PULSE 73; RESP 18
[2018-07-07] MEDS: HYDROCODONE/APAP (5/325) TAB PO SCH (20:32)
[2018-07-07] MEDS: SENNA TAB PO SCH (20:32)
[2018-07-07] MEDS ORDERED: QUETIAPINE 25 MG TAB PO ONE (22:00)
[2018-07-08] MEDS: ACCU-CHEK XX SCH (01:26)
[2018-07-08 02:34] VITALS: BP 144/77; PULSE 67; RESP 19
[2018-07-08] MEDS: PANTOPRAZOLE (EC) 40 MG TAB PO SCH (05:37)
[2018-07-08] MEDS: ONDANSETRON 4 MG INJ IV PRN (08:17)
[2018-07-08] MEDS: ZINC SULFATE 220 MG CAP PO SCH (08:21)
[2018-07-08] MEDS: DOCUSATE SODIUM 100 MG CAP PO SCH (08:21)
[2018-07-08] MEDS: LEVETIRACETAM 500 MG TAB PO SCH (08:21)
[2018-07-08] MEDS: ASCORBIC ACID 500 MG TAB PO SCH (08:21)
--- NOTE | 2018-07-08 08:21 | PN ---
DATE: 07/08/2018 SUBJECTIVE: The patient is stable. No events overnight. No fevers, chills, nausea or vomiting. OBJECTIVE: VITAL SIGNS: Blood pressure is 144/77, respirations 19, pulse 67, temperature 98.9. HEENT: Head is normocephalic. NECK: Supple. HEART: Regular rate. LUNGS: Show diminished breath sounds at the base. ABDOMEN: Soft, nontender to palpation without rebound or guarding. EXTREMITIES: Negative for clubbing, cyanosis. Positive below knee amputation. Mild edema. DERMATOLOGIC: No rashes. MUSCULOSKELETAL: No joint effusion. NEUROLOGIC: No change in exam. MEDICATIONS: The patient's medications have been reviewed. LABORATORY DATA: Laboratory data from 07/08/2018 is pending. Urinalysis was reviewed. ASSESSMENT AND PLAN: 1. Nonoliguric acute kidney injury on top of chronic kidney disease stage IV with a previous EGFR ar ound 30 mL per minute per patient. Etiology of acute kidney injury is secondary to hemodynamics. Re nal function appears to be stabilizing. At this point, continue current treatment plan, supportive c are, renally dose all medications. 2. Chronic kidney disease, etiology is likely secondary to diabetes, nephrotoxicity, questionable he patitis C associated glomerulonephritis. Plan is to do a full evaluation. We will check serologies. Continue to treat acute kidney injury as stated above. Otherwise, continue disease factor modifica tion. 3. Anemia. Continue to monitor hemoglobin and hematocrit levels. We will give Epogen as needed. 4. Mineral bone disorder. Monitor calcium and phosphorus levels. 5. Hypertension. Continue current blood pressure regimen. Defer JOSUE inhibitor or ARB at this time. 6. Metabolic acidosis. We will follow up renal panel. Consider starting Bicitra. 7. Cirrhosis. Continue medical management. 8. History of seizure disorder, continue Keppra. 9. History of deep vein thrombosis. 10. Diabetes. Continue current insulin regimen. 11. History of peripheral vascular disease status post right below-knee amputation. Dictated By: BON WHITAKER DO NR/NTS Conf#: [id number] DID#: [id number] CC: DUONG HERNANDEZ MD; JEAN-PAUL SALAMANCA MD;*EndCC*
[2018-07-08] MEDS: INSULIN ASPART [NOVOLOG] 3 ML PEN SC SCH ×2 (08:22→12:09)
[2018-07-08] MEDS: NIFEdipine (XL) 90 MG TAB PO SCH (08:24)
[2018-07-08 08:25] VITALS: BP 186/86; PULSE 76; RESP 19
[2018-07-08] MEDS: BALSAM PERU/CASTOR OIL 60 GM TUBE TOP SCH (08:25)
[2018-07-08] MEDS: EUCERIN 113 GM CR TOP SCH (08:25)
[2018-07-08 09:15] VITALS: BP 172/92; PULSE 79; RESP 18
--- NOTE | 2018-07-08 09:44 | PN ---
Date/Time of Note Date/Time of Note DATE: 07/08/18 TIME: 09:44 Assessment/Plan VTE Prophylaxis Risk score (from Ns)>0 risk: 4 SCD applied (from Ns): No SCD contraindicated: other (R BKA) Pharmacological prophylaxis: heparin Lines/Catheters IV Catheter Type (from Nrs): Saline Lock Assessment/Plan Assessment/Plan 1. Acute gastritis - resolved - tolerating PO intake 2. HTN, uncontrolled - BP still not well controlled and adjustments made to BP medications 3. CKD - Nephrology consultation appreciated and renal function appears to be normalizing 4. Left great toe traumatic partial amputation - left foot is warm with foul smell. Podiatry consultation placed for further assessment - Xrays noted and MRI ordered to rule out osteomyelitis - wound consult appreciated 5. Epilepsy - Continue Keppra - no seizure activity appreciated 6. Hepatitis B and C, liver cirrhosis - follow up with PCP outpatient for treatment 7. DM - A1c noted - ISS and accuchecks 8. Right BKA 9. History of DVT, treated 10. Normocytic anemia - most likely due to renal failure - no need for transfusion at this time - continue to monitor 11. Disposition - Will await podiatry recommendations based on MRI findings. Result Diagram: 07/07/18 0640 07/07/18 0640 Results 24hrs Laboratory Tests Test 07/07/18 12:05 07/07/18 17:12 07/07/18 20:31 07/08/18 01:45 Bedside Glucose 156 159 143 Urine Color YELLOW Urine Clarity CLOUDY A Urine pH 5.0 Urine Specific 1.019 [place] Urine Ketones NEGATIVE Urine Nitrite NEGATIVE Urine Bilirubin NEGATIVE Urine Urobilinogen NEGATIVE Urine Leukocyte NEGATIVE Esterase Urine Microscopic 4 RBC Urine Microscopic 5 WBC Urine Squamous FEW Epithelial Cells Urine Amorphous FEW A Crystals Urine Bacteria FEW A Urine Hemoglobin NEGATIVE Urine Random 126.65 Creatinine Urine Random Sodium 25 L Urine Glucose 2+ H Urine Total Protein > 600.0 H Test 07/08/18 08:12 Bedside Glucose 157 Subjective 24 Hr Interval Summary Free Text/Dictation Patient complains of pain in left foot but denies any other issues. Likes in assisted living facility currently. Exam/Review of Systems Exam Vitals Vital Signs Date Temp Pulse Resp B/P (MAP) Pulse Ox O2 O2 Flow FiO2 Time Delivery Rate 07/08/18 98.9 76 19 186/86 96 Room Air 08:25 (119) Intake and Output 07/07/18 07/07/18 07/08/18 1515:00 23:00 07:00 IntakeIntake Total 600 ml 720 ml OutputOutput Total 400 ml 350 ml BalanceBalance 200 ml 370 ml Exam General: pleasant male. no acute distress Neck: Supple Lungs: Clear breath sounds bilaterally, no wheezing or rhonchi Heart: Normal S1-S2, Regular rhythm and rate. No murmur, S3, or S4 Abdomen: Soft , nontender, nondistended , bowel sounds are present. No guarding no rebound tenderness Extremities: right BKA, left foot with great toe amputation, foul odor, dryness of skin, warmth and erythema appreciated Results Results 24hrs Laboratory Tests Test 07/07/18 12:05 07/07/18 17:12 07/07/18 20:31 07/08/18 01:45 Bedside Glucose 156 159 143 Urine Color YELLOW Urine Clarity CLOUDY A Urine pH 5.0 Urine Specific 1.019 [place] Urine Ketones NEGATIVE Urine Nitrite NEGATIVE Urine Bilirubin NEGATIVE Urine Urobilinogen NEGATIVE Urine Leukocyte NEGATIVE Esterase Urine Microscopic 4 RBC Urine Microscopic 5 WBC Urine Squamous FEW Epithelial Cells Urine Amorphous FEW A Crystals Urine Bacteria FEW A Urine Hemoglobin NEGATIVE Urine Random 126.65 Creatinine Urine Random Sodium 25 L Urine Glucose 2+ H Urine Total Protein > 600.0 H Test 07/08/18 08:12 Bedside Glucose 157 Medications Medication Current Medications IV Flush (NS 3 ml) 3 ml PER PROTOCOL IV ; Start 07/05/18 at 21:00 Ondansetron HCl (Zofran Inj) 4 mg Q6H PRN IV NAUSEA/VOMITING Last administered on 07/08/18at 08:17; Admin Dose 4 MG; Start 07/05/18 at 21:00 Acetaminophen (Tylenol Tab) 650 mg Q6H PRN PO .PAIN 1-3 OR TEMP Last administered on 07/07/18at 08:23; Admin Dose 650 MG; Start 07/05/18 at 21:00 Docusate Sodium (Colace) 100 mg Q12H PRN PO .CONSTIPATION; Start 07/05/18 at 21:00 Bisacodyl (Dulcolax) 5 mg DAILY PRN PO .CONSTIPATION; Start 07/05/18 at 21:00 Non-Formulary Medication 1 ea Q4H PRN BOTH EYES DRY EYES; Start 07/06/18 at 00:00 Acetaminophen/ Hydrocodone Bitart ([place] (5/325)) 1 tab QHS PO Last administered on 07/07/18 20:32; Admin Dose 1 TAB; Start 07/06/18 at 00:00 Multi-Ingredient Ointment (Eucerin Cream) 1 applic BID TOP Last administered on 07/08/18 08:25; Admin Dose 1 APPLIC; Start 07/06/18 at 00:00 Ascorbic Acid (Vitamin C) 1,000 mg BID PO Last administered on 07/08/18 08:21; Admin Dose 1,000 MG; Start 07/06/18 at 09:00 Carvedilol (Coreg) 25 mg BID PO Last administered on 07/08/18 08:24; Admin Dos e 25 MG; Start 07/06/18 at 00:30 Docusate Sodium (Colace) 200 mg QAM PO Last administered on 07/08/18 08:21; Admin Dose 200 MG; Start 07/06/18 at 09:00 Docusate Sodium (Colace) 200 mg QPM PO Last administered on 07/07/18 20:33; Admin Dose 200 MG; Start 07/06/18 at 21:00 Hydralazine HCl (Apresoline) 100 mg Q8H PO Last administered on 07/08/18 08:25; Admin Dose 100 MG; Start 07/06/18 at 00:30 Levetiracetam (Keppra) 500 mg BID PO Last administered on 07/08/18 08:21; Admin Dose 500 MG; Start 07/06/18 at 00:30 Senna (Senokot) 2 tab QHS PO Last administered on 07/07/18 20:32; Admin Dose 2 TAB; Start 07/06/18 at 21:00 Zinc Sulfate (Zinc Sulfate) 220 mg DAILY PO Last administered on 07/08/18 08:21; Admin Dose 220 MG; Start 07/06/18 at 09:00 Diagnostic Test (Pha) (Accu-Chek) 1 ea 02 XX ; Start 07/06/18 at 02:00 Insulin Aspart (Novolog Insulin Pen) NOVOLOG *MILD* ALGORITHM WITH MEALS BEDTIME SC Last administered on 07/08/18 08:22; Admin Dose 1 UNIT; Start 07/06/18 at 08:00 Miscellaneous Information 1 ea NOTE XX ; Start 07/06/18 at 01:00 Glucose (Glutose) 15 gm Q15M PRN PO DECREASED GLUCOSE; Start 07/06/18 at 01:00 Glucose (Glutose) 22.5 gm Q15M PRN PO DECREASED GLUCOSE; Start 07/06/18 at 01:00 Dextrose (D50w Syringe) 25 ml Q15M PRN IV DECREASED GLUCOSE; Start 07/06/18 at 01:00 Dextrose (D50w Syringe) 50 ml Q15M PRN IV DECREASED GLUCOSE; Start 07/06/18 at 01:00 Glucagon (Glucagen) 1 mg Q15M PRN IM DECREASED GLUCOSE; Start 07/06/18 at 01:00 Glucose (Glutose) 15 gm Q15M PRN BUCCAL DECREASED GLUCOSE; Start 07/06/18 at 01:00 Miscellaneous Information Patients own medicat... BID@16 XX ; Start 07/06/18 at 10:00 Clonidine (Catapres) 0.1 mg Q8 PRN PO ELEVATED BLOOD PRESSURE; Start 07/06/18 at 16:00 Pantoprazole (Protonix Tab) 40 mg DAILY@06 PO Last administered on 07/08/18at 05:37; Admin Dose 40 MG; Start 07/07/18 at 06:00 Nifedipine (Procardia Xl) 90 mg DAILY PO Last administered on 07/08/18at 08:24; Admin Dose 90 MG; Start 07/07/18 at 12:30 Acetaminophen/ Hydrocodone Bitart ([place] (10/325)) 1 tab Q4H PRN PO MODERATE PAIN LEVEL 4-6; Start 07/08/18 at 10:00 Hydralazine HCl (Apresoline) 10 mg Q4H PRN IV SBP >170; Start 07/08/18 at 10:00 ELHAM STRATTON MD July 08, 2018 09:44
[2018-07-08] MEDS ORDERED: HYDROCODONE/APAP (10/325) TAB PO PRN (10:00)
[2018-07-08] MEDS ORDERED: hydrALAzine 20 MG INJ IV PRN (10:00)
--- NOTE | 2018-07-08 16:09 | DS ---
Date/Time of Note Date/Time of Note DATE: 07/08/18 TIME: 16:09 Discharge Summary Admission/Discharge Info Admit Date/Time July 05, 2018 at 20:35 Discharge Date/Time July 08, 2018 at 15:09 Discharge Diagnosis 1. Acute gastritis 2. HTN, uncontrolled 3. CKD stage 4 4. Left great toe traumatic amputation 5. Epilepsy 6. Hepatitis B and C, liver cirrhosis 7. DM 8. Right BKA 9. History of DVT 10. Normocytic anemia Consults Nephrology- Dr. Powers Hx of Present Illness Chief complaint: Abdominal pain nausea vomiting CT scan of the abdomen pelvis without contrast showed: Nonspecific dilated gallbladder, abnormally enlarged bilateral inguinal lymph nodes. Cirrhosis. Questionable diffuse gastric wall thickening. Small amount of bilateral pleural fluid as well as small volume ascites. Nonspecific mild urinary bladder wall thickening. Patient originally presented to [facility] with complaints of abdominal pain and vomiting on 07/04. Patient had a CT scan of the abdomen pelvis was performed that showed nonspecific dilated gallbladder wall, abnormall y enlarged bilateral lymph nodes in the inguinal area. Cirrhosis. Questionable diffuse gastric wall thickening. Small amount of bilateral pleural fluid as well as volume ascites. Nonspecific mild urinary bladder wall thickening. Patient was given IV fluid hydration and he was given a p.o. challenge and patient was able to tolerate p.o. There was a request to transfer the patient [facility] however patient was deemed to be stable for outpatient follow-up. Apparently as per the medical records in the chart there was an issue regarding whether patient could be safely discharged to. Patient reports that he was originally living at a assisted living facility and then recently was admitted to a independent living facility. He does not know the name the facility. He reports that due to the fact that he is currently on a wheelchair secondary to his BKA that he was unable to get proper care at the independent living facility and unable to take his medications. He previously is from [facility]. He does not have any family. He does report that he at one point was put on hospice and was started on methadone. He states though that he does not need to methadone and that he mainly just requires [place] at night for his chronic left great toe pain. Patient at the current time reports that he had a bowel movement prior to transfer to [facility]. And that he reports that he was able to tolerate p.o. without any problem. Patient is a very pleasant male on examination. I had I done legs lump Hospital Course Patient was admitted for supportive treatment of acute gastroenteritis. He was also found with renal failure and Nephrology was consulted. Medication adjustments were made for better blood pressure control. Patients GI symptoms were improving and was able to tolerate PO intake. Patient was complaining of left foot pain and found with scant discharge and foul odor. Xrays were performed with recommendations for MRI to rule out osteomyelitis. Podiatry was consulted. Patient was concerned about missing his optometry appointments and wanted to get back to his assisted living before 5pm. Discussion was held with the patient that he was not stable for discharge but he decided to leave AGAINST MEDICAL ADVICE. Home Meds Reported Medications Methadone Hcl* (Methadone*) 10 Mg Tab, 40 MG PO, TAB 07/06/18 Sennosides* (Senna Lax*) 8.6 Mg Tablet, 2 TAB PO QHS, TAB 07/06/18 Zinc Sulfate* (Zinc Sulfate*) 220 Mg Cap, 220 MG PO DAILY, CAP 07/06/18 Carvedilol* (Carvedilol*) 25 Mg Tablet, 25 MG PO BID, #60 TAB HOLD IF SBP<110 OR HR <60 07/06/18 Multivitamin (Multivitamins) 1 Each Capsule, 1 EACH PO, CAP 07/06/18 Clonidine Hcl* (Catapres*) 0.3 Mg Tablet, 0.3 MG PO Q8 PRN for ELEVATED BLOOD PRESSURE, TAB FOR SBP>170 07/06/18 Ascorbic Acid (Vitamin C) 500 Mg Tab, 1000 MG PO BID, TAB 07/06/18 Amlodipine Besylate* (Norvasc*) 10 Mg Tablet, 10 MG PO BID, TAB 07/06/18 Docusate Sodium* (Colace*) 100 Mg Capsule, 200 MG PO QPM, #30 CAP 07/06/18 Docusate Sodium* (Colace*) 100 Mg Capsule, 200 MG PO QAM, #60 CAP 07/06/18 Hydralazine Hcl* (Hydralazine Hcl*) 50 Mg Tab, 100 MG PO Q8H, #120 TAB HOLD IF SBP<100 07/06/18 Glipizide* (Glipizide*) 5 Mg Tablet, 5 MG PO BID, TAB 07/05/18 Levetiracetam* (Keppra*) 500 Mg Tablet, 500 MG PO BID, TAB 07/05/18 Primary Care Provider [facility] Time spent on discharge: < 30 minutes Pending Labs Laboratory Tests Test 07/07/18 17:12 07/07/18 20:31 07/08/18 01:45 07/08/18 08:12 Bedside 159 143 157 Glucose mg/dL (70-220) mg/dL (70-220) mg/dL (70-220) Urine Color YELLOW (YELLOW ) Urine Clarity CLOUDY (CLEAR) Urine pH 5.0 (5.0-9.0) Urine Specific 1.019 (1.003-1 [place] .030) Urine Ketones NEGATIVE mg/dL (NEGATIV E) Urine Nitrite NEGATIVE mg/dL (NEGATIV E) Urine NEGATIVE Bilirubin mg/dL (NEGATIV E) Urine NEGATIVE Urobilinogen mg/dL (NEGATIV E) Urine Leukocyte NEGATIVE [place]ah/u Esterase l Urine 4 /HPF (0-5) Microscopic RBC Urine 5 /HPF (0-5) Microscopic WBC Urine Squamous FEW /HPF (FEW) Epithelial Cell s Urine Amorphous FEW /HPF Crystals (NONE SEEN) Urine Bacteria FEW /HPF (NONE SEEN) Urine NEGATIVE Hemoglobin mg/dL (NEGATIV E) Urine Random 126.65 Creatinine mg/dl (20-370) Urine Random 25 Sodium mmol/L (30-90) Urine Glucose 2+ mg/dL (NEGATIV E) Urine Total > 600.0 Protein mg/dl (0.0-11. 9) Test 07/08/18 10:57 07/08/18 11:12 07/08/18 12:05 Lab Scanned REFERENCE REFERENCE Report LAB [id number] LAB [id number] Bedside 158 Glucose mg/dL (70-220) ELHAM STRATTON MD July 08, 2018 16:09
== END 2018-07-08 15:09 | disposition left against medical advice (07) | DRG 683 ==
LOC: E/R 20:32 → PP2 20:35
PROVIDERS: ADMIT Family Medicine; ATTEND Internal Medicine
DX: N17.9 Acute kidney failure, unspecified (principal); E87.2 Acidosis; K52.9 Noninfective gastroenteritis and colitis, unspecified; N18.4 Chronic kidney disease, stage 4 (severe); K29.70 Gastritis, unspecified, without bleeding; E11.22 Type 2 diabetes mellitus with diabetic chronic kidney disease; I12.9 Hypertensive chronic kidney disease with stage 1 through stage 4 chronic kidney disease, or unspecified chronic kidney disease; Z89.519 Acquired absence of unspecified leg below knee; E86.0 Dehydration; R10.11 Right upper quadrant pain; E11.319 Type 2 diabetes mellitus with unspecified diabetic retinopathy without macular edema; Z86.718 Personal history of other venous thrombosis and embolism; R53.81 Other malaise; D64.9 Anemia, unspecified; B19.20 Unspecified viral hepatitis C without hepatic coma
CPT/HCPCS: 73660; 76705; 76775; 80053; 80061; 81001; 81003; 82043; 82962; 83036; 83735; 84155; 84300; 84443; 85025; 86704; 86706; 86708; 86709; 86803; 87081; 87340; 87522; 93970; J0360; J1644; J1815; J2405; J7030

== ENCOUNTER 2018-08-23 04:03 | Inpatient (IN) | payer OTHER ==
[~2018-08-23] VITALS: Ht 182.9 cm; Wt 98.3 kg
[2018-08-23] VITALS (9 sets, daily range): BP systolic 154–192; BP diastolic 70–95; PULSE 65–82; RESP 18–24; Ht 182.9 cm; Wt 98.3 kg
[~2018-08-23 04:03] MED LIST: AMLO-218 PO; ASC500 PO; CARV25TA79 PO; CLON0.3T4 PO; DOCU-144 PO; GLIP5TAB13 PO; HYDR-3672 PO; LEVE-5 PO; METH10TA2 PO; MULT1CAP20 PO; SENN-120 PO; ZINC220C5 PO
[2018-08-23] MEDS ORDERED: hydrALAzine 20 MG INJ IV ONE (07:35)
[2018-08-23] MEDS ORDERED: morphine 4 MG/ML VIAL IV STA (08:12)
[2018-08-23] MEDS ORDERED: NACL 0.9% 3 ML SYG IV SCH (10:00)
[2018-08-23] MEDS ORDERED: morphine 2 MG INJ IV PRN (10:00)
[2018-08-23] MEDS ORDERED: PENDING SANTYL ORDER FOR WOUND CARE XX PRN (10:30)
[2018-08-23] MEDS ORDERED: DOCUSATE SODIUM 100 MG CAP PO SCH ×2 (11:00→21:00)
[2018-08-23] MEDS ORDERED: ZINC SULFATE 220 MG CAP PO SCH (11:00)
[2018-08-23] MEDS ORDERED: LANT3I SC (11:15)
[2018-08-23] MEDS ORDERED: NOVO7030 SC (11:15)
[2018-08-23] MEDS: HYDROmorphONE 1 MG/ML SYG IV PRN ×3 (11:36→19:59)
[2018-08-23] MEDS: MULTIVITAMINS THERAPEUTIC TAB PO SCH (11:39)
[2018-08-23] MEDS: LEVETIRACETAM 500 MG TAB PO SCH ×2 (11:39→20:14)
[2018-08-23] MEDS: ASCORBIC ACID 500 MG TAB PO SCH ×2 (11:40→20:14)
[2018-08-23] MEDS ORDERED: ASPI-903 PO (11:43)
[2018-08-23] MEDS ORDERED: LACT-38 PO (11:45)
--- NOTE | 2018-08-23 11:47 | HP ---
Date/Time of Note Date/Time of Note DATE: 08/23/18 TIME: 11:30 Assessment/Plan VTE Prophylaxis Risk score (from Ns)>0 risk: 5 SCD applied (from Ns): No SCD contraindicated: other Pharmacological prophylaxis: NA/contraindicated Pharm contraindication: liver dx Lines/Catheters IV [facility]from [facility] Saline Lock Assessment/Plan Hospital Course SUBJECTIVE: Patient is complaining of 10 out of 10 pain. He is asking for Dilaudid. He is also having diffuse scrotal swelling with pain. OBJECTIVE: Vital signs-see below PHYSICAL EXAM: Constitutional: Adequately built,not in acute distress. HEENT: Head atraumatic and normocephalic. Eyes: Extraocular muscles intact. Anicteric sclerae. Pupils equal bilaterally, reactive to light. NECK: Supple without lymph node. CHEST: Clear and good breath sounds equally. No wheezing. No rhonchi. HEART: S1, S2. Regular rate and rhythm. ABDOMEN: Distended abdomen w/+ascites.+Mild tenderness. Bowel sounds were present. EXTREMITIES: +Anasarca. Right BKA. Left foot bandaged. Toe amputation. NEUROLOGIC: Alert and oriented x3. No focal deficit. No sensory deficit. PSYCHOSOCIAL: No signs of depression. INTEGUMENTARY: No open wounds. :Diffuse crotal selling. ASSESSMENT AND PLAN:52 yo M w/CKD, advanced liver cirrhosis W/ascites, dm2,anemia,dm retinopathy,rt bka,lt toe amputee,dm ulcers,seizure disorders,chf,htn tx from [place] for scrotal swelling/pain... Diffuse scrotal edema with pain,likely dependent w/HF/liver disease -s/p surgical eval at [place]-no Fourniers' gangrene. -Elevate scrotum on rolled towels. -Obtain scrotal ultrasound -Urology consultation -PRN pain control Acute kidney injury on CKD -Nephrology consultation. -Avoid nephrotoxins -Monitor renal function-noted with Lasix this may even get worse. Abdominal distention/pain -r/o ascites -CT ordered Advanced liver disease/cirrhosis/ascites,decompensated -Patient not on any treatment for this and he reports being " hospiced" for his liver issues. -Obtain CT as therapeutic paracentesis can relieve his pain if there is large volume of ascites present. Volume overload/Congestive heart failure -Add BNP, 2D echocardiogram -Diuresis -Resume Beta-blockers Hypertension -Resume beta-pablo/hydralazine. Hold amlodipine in light of edema. DMII -Blood sugar at [place] about 300. Will start basal/bolus insulin. Obesity LLE ulcers W/s/p toe amputation, chronic -Wound care consult Right BKA -Patient is wheelchair-bound. Supportive care Seizure disorders, stable -Resume Keppra DVT prophylaxis: Not a candidate for anticoagulation secondary to advanced liver disease and coagulopathies. Patient also reports that he does not want to be treated for his advanced liver disease as there is no further treatment available for him for this reason, he was receiving hospice focused care for his liver disease. Patient also wants to be full code and resuscitated. I will request sr. social media & mobile manager follow-up on the case. Rest of the management depend on hospital course. Approximately 60-minute was spent on this history and physical. Patient was seen in collaboration with Dr. Valiente. HPI/ROS Admit Date/Time Admit Date/Time Aug 23, 2018 at 05:55 Hx of Present Illness This is a 52-year-old male with a history of advanced liver cirrhosis/ascites diabetes, daily smoking, diabetic retinopathy, CHF, COPD, CKD, seizure disorders, left toe amputation, right BKA, initially presented to [facility] with worsening bilateral scrotal edema with intractable pain. Patient did not have any chest pain, palpitation, nausea, vomiting, dizziness, loss of consciousness, headache, numbness, tingling, fever, chills or other constitutional symptoms. Outside labs showed white count 6.9, hemoglobin 8.2, hematocrit 24.9, platelet 209, sodium 134, potassium 4.0, BUN 33, creatinine 4.08, glucose 322, ALT 16, AST 28, alkaline phosphatase 172, normal serum bilirubins, normal troponin. Patient was also seen by general surgeon Dr. Mason at [place] and deemed that patient's scrotal edema is dependent edema and there is no indication of suspecting for Fourniers' gangrene. ROS A 12 point review of system was assessed and is negative other than what is mentioned in the HPI PMH/Family/Social Past Medical History See HPI Medications Current Medications Ascorbic Acid (Vitamin C) 1,000 mg BID PO ; Start 08/23/18 at 11:00 Carvedilol (Coreg) 25 mg BID PO ; Start 08/23/18 at 11:00 Docusate Sodium (Colace) 200 mg QAM PO ; Start 08/23/18 at 11:00 Docusate Sodium (Colace) 200 mg QPM PO ; Start 08/23/18 at 21:00 Hydralazine HCl (Apresoline) 100 mg Q8H PO ; Start 08/23/18 at 11:00 Levetiracetam (Keppra) 500 mg BID PO ; Start 08/23/18 at 11:00 Senna (Senokot) 2 tab QHS PO ; Start 08/23/18 at 21:00 Zinc Sulfate (Zinc Sulfate) 220 mg DAILY PO ; Start 08/23/18 at 11:00 Multivitamins Therapeutic (Theragran) 1 tab DAILY PO ; Start 08/23/18 at 11:00 Clonidine (Catapres) 0.1 mg Q6H PRN PO sbp>170; Start 08/23/18 at 10:00 IV Flush (NS 3 ml) 3 ml PER PROTOCOL IV ; Start 08/23/18 at 10:00 Miscellaneous Information (Pending [facility] Order For Wound Care) This patient hugo... PRN PRN XX WOUND CARE; Start 08/23/18 at 10:30 Hydromorphone HCl (Dilaudid) 1 mg Q4H PRN IV SEVERE PAIN LEVEL 7-10; Start 08/23/18 at 11:30 Coded Allergies: lisinopril (Verified Allergy, Unknown, 07/05/18) metformin (Verified Allergy, Unknown, 07/05/18) turkey (Verified Allergy, Unknown, neck swelling , 07/06/18) Past Surgical History See HPI Family History Significant Family History: no pertinent family hx Social History Smokes daily 3 cigarettes/day. Denies alcohol or other substance abuse. Smoking Status: Current every day smoker Exam/Review of Systems Vital Signs Vitals Vital Signs Date Temp Pulse Resp B/P (MAP) Pulse Ox O2 O2 Flow FiO2 Time Delivery Rate 08/23/18 154/81 08:27 (105) 08/23/18 97.5 81 20 94 07:18 08/23/18 Room Air 06:44 Intake and Output 08/22/18 08/22/18 08/23/18 1515:00 23:00 07:00 OutputOutput Total 300 ml BalanceBalance -300 ml DOYLE,ELY V. VIDEO PRODUCTION ENGINEER Aug 23, 2018 11:40
[2018-08-23] MEDS ORDERED: FUROSEMIDE 40 MG INJ IV ONE (12:00)
[2018-08-23] MEDS ORDERED: INSULIN GLARGINE [LANTus] (100 UNITS/ML) SYG SC SCH (13:00)
[2018-08-23] MEDS: INSULIN ASPART [NOVOLOG] 3 ML PEN SC SCH ×3 (17:30→20:13)
--- NOTE | 2018-08-23 19:28 | CONS ---
Assessment/Plan Assessment/Plan Hospital Course (Demo Recall) 52-year-old male has a history of advanced liver cirrhosis/ascites, diabetes, daily smoking, diabetic retinopathy, congestive heart failure, chronic obstructive pulmonary disease, chronic kidney disease, seizure disorders, left toe amputation and right below-knee amputation. He initially presented to [facility] with worsening bilateral scrotal edema with intractable pain. Patient was transferred to [facility] because of his insurance. He states that he was on hospice but now he wants to be full code. Patient did not have any chest pain, palpitation, nausea, vomiting, dizziness, loss of consciousness, headache, numbness, tingling, fever, chills or other constitutional symptoms. A urological consultation was requested because of the scrotal swelling and pain. CT scan of the abdomen and pelvis showed 1. Liver cirrhosis. Correlate with clinical history. Large amount of intra- abdominal/pelvic ascites. Generalized anasarca. 2. Diffuse thickening of the hirsch of the bladder, cannot exclude cystitis. 3. No gross evidence of bowel obstruction. Stool filled loops of large bowel suggestive of constipation. The appendix is within normal limits. 4. Mild atherosclerosis aorta. 5. Retroperitoneal sub centimeter lymph nodes, probably reactive. 6. No gross renal/ureteric calculi. No evidence of obstructive uropathy. 7. Large bilateral hydroceles and scrotal edema. On the examination he does have abdominal ascites, edema of the pubic area and upper thighs. He also does have large amount of edema of the penis and scrotum. The scrotal swelling is part of his generalized anasarca. On the sides the swelling could go down into his thighs but in the midline the fluid goes into the scrotum and from there it has nowhere to go and therefore the scrotum becomes more distended and enlarged. Recommendation: Elevate the scrotum on a towel all the time and manage his ascites and anasarca. Consultation Date/Type/Reason Admit Date/Time Aug 23, 2018 at 05:55 Date of Consultation: Aug 23, 2018 Type of Consult Urology Reason for Consultation Scrotal swelling and pain Requesting Provider: VADIM CORRIGAN MD Date/Time of Note DATE: 08/23/18 TIME: 19:13 Hx of Present Illness 52-year-old male has a history of advanced liver cirrhosis/ascites, diabetes, daily smoking, diabetic retinopathy, congestive heart failure, chronic obstructive pulmonary disease, chronic kidney disease, seizure disorders, left toe amputation and right below-knee amputation. He initially presented to [facility] with worsening bilateral scrotal edema with intractable pain. Patient was transferred to [facility] because of his insurance. He states that he was on hospice but now he wants to be full code. Patient did not have any chest pain, palpitation, nausea, vomiting, dizziness, loss of consciousness, headache, numbness, tingling, fever, chills or other constitutional symptoms. A urological consultation was requested because of the scrotal swelling and pain. CT scan of the abdomen and pelvis showed 1. Liver cirrhosis. Correlate with clinical history. Large amount of intra- abdominal/pelvic ascites. Generalized anasarca. 2. Diffuse thickening of the hirsch of the bladder, cannot exclude cystitis. 3. No gross evidence of bowel obstruction. Stool filled loops of large bowel suggestive of constipation. The appendix is within normal limits. 4. Mild atherosclerosis aorta. 5. Retroperitoneal sub centimeter lymph nodes, probably reactive. 6. No gross renal/ureteric calculi. No evidence of obstructive uropathy. 7. Large bilateral hydroceles and scrotal edema. Constitutional: other (Complains of pain) Gastrointestinal: other (Abdominal distention) Genitourinary: other ( penoscrotal swelling and pain) Skin: erythema (Left lower extremity) Neurologic: seizure (History of) Past Medical History Medical History: congestive heart failure, diabetes, hypertension, renal disease, other (Liver cirrhosis and ascites and history of seizures) Home Meds Reported Medications Lactose-Free Food (Ensure High Protein) 237 Ml Liquid, 237 ML PO 08/23/18 Aspirin* (Aspirin* Chew) 81 Mg Tab.chew, 81 MG PO DAILY, TAB.CHEW 08/23/18 Insulin Glargine* (Lantus*) 100 Unit/Ml Soln, 15 UNIT SC QHS, #1 VIAL 08/23/18 Insulin Isophan/Regular (Humulin 70/30) 100 Units/Ml Susp, 3 UNIT SC AC BREAKFAST DINNER, EA 08/23/18 Methadone Hcl* (Methadone*) 10 Mg Tab, 40 MG PO, TAB 07/06/18 Sennosides* (Senna Lax*) 8.6 Mg Tablet, 2 TAB PO QHS, TAB 07/06/18 Zinc Sulfate* (Zinc Sulfate*) 220 Mg Cap, 220 MG PO DAILY, CAP 07/06/18 Carvedilol* (Carvedilol*) 25 Mg Tablet, 25 MG PO BID, #60 TAB HOLD IF SBP<110 OR HR <60 07/06/18 Multivitamin (Multivitamins) 1 Each Capsule, 1 EACH PO, CAP 07/06/18 Clonidine Hcl* (Catapres*) 0.3 Mg Tablet, 0.3 MG PO Q8 PRN for ELEVATED BLOOD PRESSURE, TAB FOR SBP>170 07/06/18 Ascorbic Acid (Vitamin C) 500 Mg Tab, 1000 MG PO BID, TAB 07/06/18 Amlodipine Besylate* (Norvasc*) 10 Mg Tablet, 10 MG PO BID, TAB 07/06/18 Docusate Sodium* (Colace*) 100 Mg Capsule, 200 MG PO QPM, #30 CAP 07/06/18 Docusate Sodium* (Colace*) 100 Mg Capsule, 200 MG PO QAM, #60 CAP 07/06/18 Hydralazine Hcl* (Hydralazine Hcl*) 50 Mg Tab, 100 MG PO Q8H, #120 TAB HOLD IF SBP<100 07/06/18 Glipizide* (Glipizide*) 5 Mg Tablet, 5 MG PO BID, TAB 07/05/18 Levetiracetam* (Keppra*) 500 Mg Tablet, 500 MG PO BID, TAB 07/05/18 Medications Current Medications Ascorbic Acid (Vitamin C) 1,000 mg BID PO Last administered on 08/23/18at 11:40; Admin Dose 1,000 MG; Start 08/23/18 at 11:00 Carvedilol (Coreg) 25 mg BID PO Last administered on 08/23/18at 11:41; Admin Dose 25 MG; Start 08/23/18 at 11:00 Docusate Sodium (Colace) 200 mg QAM PO Last administered on 08/23/18at 11:39; Admin Dose 200 MG; Start 08/23/18 at 11:00 Docusate Sodium (Colace) 200 mg QPM PO ; Start 08/23/18 at 21:00 Hydralazine HCl (Apresoline) 100 mg Q8H PO Last administered on 08/23/18at 11:41; Admin Dose 100 MG; Start 08/23/18 at 11:00 Levetiracetam (Keppra) 500 mg BID PO Last administered on 08/23/18at 11:39; Admin Dose 500 MG; Start 08/23/18 at 11:00 Senna (Senokot) 2 tab QHS PO ; Start 08/23/18 at 21:00 Multivitamins Therapeutic (Theragran) 1 tab DAILY PO Last administered on 08/23/18at 11:39; Admin Dose 1 TAB; Start 08/23/18 at 11:00 Clonidine (Catapres) 0.1 mg Q6H PRN PO sbp>170 Last administered on 08/23/18at 11:40; Admin Dose 0.1 MG; Start 08/23/18 at 10:00 IV Flush (NS 3 ml) 3 ml PER PROTOCOL IV ; Start 08/23/18 at 10:00 [facility]isc[facility] This patient hugo... PRN PRN XX WOUND CARE; Start 08/23/18 at 10:30 Hydromorphone HCl (Dilaudid) 1 mg Q4H PRN IV SEVERE PAIN LEVEL 7-10 Last administered on 08/23/18at 15:57; Admin Dose 1 MG; Start 08/23/18 at 11:30 Diagnostic Test (Pha) (Accu-Chek) 1 ea 02 XX ; Start 08/24/18 at 02:00 Insulin Glargine (Lantus) 29 units DAILY@0800 SC Last administered on 08/23/18at 13:39; Admin Dose 29 UNITS; Start 08/23/18 at 13:00 Insulin Aspart (Novolog Insulin Pen) 5 unit WITH MEALS SC Last administered on 08/23/18at 17:31; Admin Dose 5 UNIT; Start 08/23/18 at 17:55 Insulin Aspart (Novolog Insulin Pen) NOVOLOG *MILD* ALGORITHM WITH MEALS BEDTIME SC Last administered on 08/23/18 17:30; Admin Dose 2 UNIT; Start 08/23/18 at 17:55 Zinc Sulfate (Zinc Sulfate) 220 mg DAILY PO ; Start 08/24/18 at 09:00; Stop 09/04/18 at 09:01 Allergies: Coded Allergies: lisinopril (Verified Allergy, Unknown, 07/05/18) metformin (Verified Allergy, Unknown, 07/05/18) turkey (Verified Allergy, Unknown, neck swelling , 07/06/18) Past Surgical History Past Surgical Hx: other (Right below-knee amputation and left toe amputation) Social History Smoking Status: Current every day smoker Exam/Review of Systems Exam Vitals Vital Signs Date Temp Pulse Resp B/P (MAP) Pulse Ox O2 O2 Flow FiO2 Time Delivery Rate 08/23/18 158/84 18:54 (108) 08/23/18 16:56 08/23/18 18 95 15:47 Intake and Output 08/22/18 08/22/18 08/23/18 1515:00 23:00 07:00 OutputOutput Total 300 ml BalanceBalance -300 ml Constitutional: alert Head: normocephalic Eyes: nl conjunctiva Neck: supple Respiratory: No wheezing Gastrointestinal: ascites, distended Genitourinary - Male: other (Penis and scrotum very swollen.) Musculoskeletal: other (Right below-knee amputation and left toe amputation) Neurological: nl mental status Skin: ecchymosis, laceration (Left lower extremity) Results Result Diagram: 08/23/18 1216 08/23/18 1216 Results 24hrs Laboratory Tests Test 08/23/18 12:16 08/23/18 12:44 08/23/18 13:31 08/23/18 17:26 White Blood Count 10.4 # Red Blood Count 4.18 #L Hemoglobin 11.1 #L Hematocrit 34.2 L Mean Corpuscular 81.8 L Volume Mean Corpuscular 26.6 L Hemoglobin Mean Corpuscular 32.5 Hemoglobin Concent Red Cell 14.2 Distribution Width Platelet Count 292 Mean Platelet 9.5 Volume Immature 1.000 H Granulocytes % Neutrophils % 63.9 Lymphocytes % 21.6 Monocytes % 6.9 Eosinophils % 6.2 Basophils % 0.4 Nucleated Red 0.0 Blood Cells % Immature 0.100 H Granulocytes # Neutrophils # 6.7 Lymphocytes # 2.3 Monocytes # 0.7 Eosinophils # 0.7 H Basophils # 0.0 Nucleated Red 0.0 Blood Cells # Sodium Level 139 Potassium Level 4.1 Chloride Level 118 H Carbon Dioxide 15 L Level Anion Gap 6 Blood Urea 34 H Nitrogen Creatinine 4.26 H Est Glomerular 15 L Filtrat Rate mL/min Glucose Level 170 Calcium Level 8.0 L B-Type Natriuretic 87241 H Peptide Urine Color YELLOW Urine Clarity SLIGHTLY CLOUDY A Urine pH 5.0 Urine Specific 1.014 [place] Urine Ketones NEGATIVE Urine Nitrite NEGATIVE Urine Bilirubin NEGATIVE Urine Urobilinogen NEGATIVE Urine Leukocyte NEGATIVE Esterase Urine Microscopic 10 H RBC Urine Microscopic 2 WBC Urine Bacteria MODERATE Urine Hemoglobin NEGATIVE Urine Random 68.50 Creatinine Urine Random 59 Sodium Urine Glucose 3+ H Urine Total > 600.0 H Protein Bedside Glucose [address] scan of the abdomen and pelvis: 1. Liver cirrhosis. Correlate with clinical history. Large amount of intra- abdominal/pelvic ascites. Generalized anasarca. 2. Diffuse thickening of the hirsch of the bladder, cannot exclude cystitis. 3. No gross evidence of bowel obstruction. Stool filled loops of large bowel suggestive of constipation. The appendix is within normal limits. 4. Mild atherosclerosis aorta. 5. Retroperitoneal sub centimeter lymph nodes, probably reactive. 6. No gross renal/ureteric calculi. No evidence of obstructive uropathy. 7. Large bilateral hydroceles and scrotal edema. Medications Medication Current Medications Ascorbic Acid (Vitamin C) 1,000 mg BID PO Last administered on 08/23/18 11:40; Admin Dose 1,000 MG; Start 08/23/18 at 11:00 Carvedilol (Coreg) 25 mg BID PO Last administered on 08/23/18 11:41; Admin Dose 25 MG; Start 08/23/18 at 11:00 Docusate Sodium (Colace) 200 mg QAM PO Last administered on 08/23/18 11:39; Admin Dose 200 MG; Start 08/23/18 at 11:00 Docusate Sodium (Colace) 200 mg QPM PO ; Start 08/23/18 at 21:00 Hydralazine HCl (Apresoline) 100 mg Q8H PO Last administered on 08/23/18 11:41; Admin Dose 100 MG; Start 08/23/18 at 11:00 Levetiracetam (Keppra) 500 mg BID PO Last administered on 08/23/18 11:39; Admin Dose 500 MG; Start 08/23/18 at 11:00 Senna (Senokot) 2 tab QHS PO ; Start 08/23/18 at 21:00 Multivitamins Therapeutic (Theragran) 1 tab DAILY PO Last administered on 08/23/18 11:39; Admin Dose 1 TAB; Start 08/23/18 at 11:00 Clonidine (Catapres) 0.1 mg Q6H PRN PO sbp>170 Last administered on 08/23/18at 11:40; Admin Dose 0.1 MG; Start 08/23/18 at 10:00 IV Flush (NS 3 ml) 3 ml PER PROTOCOL IV ; Start 08/23/18 at 10:00 Miscellaneous Information (Pending [facility] Order For Wound Care) This patient hugo... PRN PRN XX WOUND CARE; Start 08/23/18 at 10:30 Hydromorphone HCl (Dilaudid) 1 mg Q4H PRN IV SEVERE PAIN LEVEL 7-10 Last administered on 08/23/18at 15:57; Admin Dose 1 MG; Start 08/23/18 at 11:30 Diagnostic Test (Pha) (Accu-Chek) 1 ea 02 XX ; Start 08/24/18 at 02:00 Insulin Glargine (Lantus) 29 units DAILY@0800 SC Last administered on 08/23/18at 13:39; Admin Dose 29 UNITS; Start 08/23/18 at 13:00 Insulin Aspart (Novolog Insulin Pen) 5 unit WITH MEALS SC Last administered on 08/23/18at 17:31; Admin Dose 5 UNIT; Start 08/23/18 at 17:55 Insulin Aspart (Novolog Insulin Pen) NOVOLOG *MILD* ALGORITHM WITH MEALS BEDTIME SC Last administered on 08/23/18at 17:30; Admin Dose 2 UNIT; Start 08/23/18 at 17:55 Zinc Sulfate (Zinc Sulfate) 220 mg DAILY PO ; Start 08/24/18 at 09:00; Stop 09/04/18 at 09:01 PEDRO BLANC MD Aug 23, 2018 19:23
[2018-08-23] MEDS ORDERED: AMLODIPINE 10 MG TAB PO SCH (21:00)
[2018-08-23] MEDS ORDERED: SENNA TAB PO SCH (21:00)
[2018-08-24] VITALS (9 sets, daily range): BP systolic 161–215; BP diastolic 78–110; PULSE 61–81; RESP 18–21
[2018-08-24] MEDS: QUETIAPINE 25 MG TAB PO PRN ×2 (01:18→22:35)
[2018-08-24] MEDS: ACCU-CHEK XX SCH (02:00)
[2018-08-24] MEDS: HYDROmorphONE 1 MG/ML SYG IV PRN ×6 (04:03→21:22)
--- NOTE | 2018-08-24 06:20 | CONS ---
DATE OF ADMISSION: 08/23/2018 DATE OF CONSULTATION: 08/23/2018 TYPE OF CONSULTATION: Nephrology. REASON FOR CONSULTATION: Chronic kidney disease, acute kidney injury. PHYSICIAN REQUESTING CONSULT: Dr. Hernandez. HISTORY OF PRESENT ILLNESS: This is a 52-year-old male with a past medical history of CKD stage IV w ith a baseline EGFR around 30 mL per minute, history of cirrhosis, history of UTI, history of seizure disorder, history of diabetes, history of hypertension, history of methadone use, who presents to [facility] with complaints of new onset initially presented to [facility] with w orsening bilateral scrotal edema and intractable pain. The patient at [facility] had laboratory work done which showed a sodium 134, BUN 33, creatinine 4.8. The patient was seen by general guillaumeo n. no indication of suspicion of Delfina's gangrene. The patient was then subsequently transferre d to [facility] for continued care. As per patient's renal history, the patient has CKD stage IV, with progressive disease. The patient is refusing hemodialysis. The patient denies any recent episodes of hemoptysis, hematemesis or hemat ochezia. The patient states that his scrotal edema occurred suddenly over the past 2 to 3 days. He denies any trauma. PAST MEDICAL HISTORY: History of CKD stage IV, history of cirrhosis, history of diabetes, history of CHF, COPD, history of left toe amputation, seizure disorder, history of right BKA. PAST SURGICAL HISTORY: Status post right BKA . FAMILY HISTORY: No family history of kidney disease. SOCIAL HISTORY: Positive cigarette use. MEDICATIONS: Reviewed. ALLERGIES: Please see list. REVIEW OF SYSTEMS: A 14-point review of systems conducted. Pertinent positives stated in HPI, other esparza negative. PHYSICAL EXAMINATION: VITAL SIGNS: Blood pressure is 126/88, respiratory rate 20, pulse 82, temperature 98.6. HEENT: Head is normocephalic. NECK: Supple. HEART: Regular rate. LUNGS: Show diminished breath sounds at the base. ABDOMEN: Soft, nontender to palpation. GENITOURINARY: Patient has marked scrotal edema with tenderness to palpation. EXTREMITIES: Show positive right BKA. Positive edema in left lower extremity. DERMATOLOGIC: No rashes. MUSCULOSKELETAL: No joint effusion. MEDICATIONS: Have been reviewed. LABORATORY DATA: Has been reviewed. IMAGING STUDIES: Have been reviewed. ASSESSMENT AND PLAN: This is a 52-year-old male who presents with: 1. Nonoliguric acute kidney injury on top of chronic kidney disease stage IV with previous baseline creatinine around 3.5 mg/dL. Etiology of current acute kidney injury is likely secondary to hemodyna mics, possible progression of underlying chronic kidney disease is a consideration. Plan at this poi nt is to do evaluation. We will check UA with microanalysis, check urine electrolytes. We will chec k a renal ultrasound to rule out obstruction. Would otherwise continue current treatment plan, suppo rtive care, renally dose all meds. Defer any JOSUE inhibitor or ARB at this time. Please note I did s peak with the patient about starting hemodialysis. The patient is refusing. Agree with diuretic the rapy. 2. Volume overload. The patient's etiology is likely secondary to advanced EKG, possible congestive heart failure. Continue diuretic regimen and monitor renal function closely. Consider checking 2D echo. 3. Anemia. Monitor hemoglobin and hematocrit levels. Mineral bone disorder, monitor calcium and ph osphorus levels. 4. Scrotal edema, etiology may be secondary to heart failure, progressive CKD. No evidence of Forn ey's gangrene per outside hospital. Will follow up with neurology. Monitor closely. 5. Chronic abdominal pain, distention. Continue to monitor. 6. cirrhosis. Continue current medical management. 7. Hypertension. Continue current blood pressure regimen. 8. Diabetes. Continue current insulin regimen. 9. History of right BKA. 10. Seizure disorder, continue Keppra. Thank you, Dr. Hernandez and Nena for this interesting consult. [facility] course. Dictated By: BON WHITAKER DO NR/NTS Conf#: [id number] DID#: [id number] CC: VADIM CORRIGAN MD; DUONG HERNANDEZ MD;*EndCC*
[2018-08-24] MEDS: INSULIN ASPART [NOVOLOG] 3 ML PEN SC SCH ×5 (07:55→21:00)
--- NOTE | 2018-08-24 08:15 | CONS ---
Consult Date/Type/Reason Admit Date/Time Aug 23, 2018 at 05:55 Initial Consult Date 08/23/18 Type of Consultation: Urology Reason for Consultation Scrotal swelling Requesting Provider: VADIM CORRIGAN MD Date/Time of Note DATE: 08/24/18 TIME: 08:13 Subjective Patient continues to complain of pain but that seems to be little less also the scrotal swelling has decreased a little bit Objective Vitals Vital Signs Date Temp Pulse Resp B/P (MAP) Pulse Ox O2 O2 Flow FiO2 Time Delivery Rate 08/24/18 98.3 65 19 183/87 98 Room Air 07:12 (119) Intake and Output 08/23/18 08/23/18 08/24/18 1515:00 23:00 07:00 IntakeIntake Total 120 ml 300 ml 700 ml OutputOutput Total 550 ml 325 ml 300 ml BalanceBalance -430 ml -25 ml 400 ml Exam The scrotal edema has decreased from what it was the day before. Results/Medications Result Diagram: 08/24/18 0615 08/24/18 0615 Results 24 hrs Laboratory Tests Test 08/23/18 12:16 08/23/18 12:44 08/23/18 13:31 08/23/18 17:26 White Blood Count 10.4 # Red Blood Count 4.18 #L Hemoglobin 11.1 #L Hematocrit 34.2 L Mean Corpuscular 81.8 L Volume Mean Corpuscular 26.6 L Hemoglobin Mean Corpuscular 32.5 Hemoglobin Concent Red Cell 14.2 Distribution Width Platelet Count 292 Mean Platelet 9.5 Volume Immature 1.000 H Granulocytes % Neutrophils % 63.9 Lymphocytes % 21.6 Monocytes % 6.9 Eosinophils % 6.2 Basophils % 0.4 Nucleated Red 0.0 Blood Cells % Immature 0.100 H Granulocytes # Neutrophils # 6.7 Lymphocytes # 2.3 Monocytes # 0.7 Eosinophils # 0.7 H Basophils # 0.0 Nucleated Red 0.0 Blood Cells # Sodium Level 139 Potassium Level 4.1 Chloride Level 118 H Carbon Dioxide 15 L Level Anion Gap 6 Blood Urea 34 H Nitrogen Creatinine 4.26 H Est Glomerular 15 L Filtrat Rate mL/min Glucose Level 170 Calcium Level 8.0 L B-Type Natriuretic 13516 H Peptide Urine Color YELLOW Urine Clarity SLIGHTLY CLOUDY A Urine pH 5.0 Urine Specific 1.014 [place] Urine Ketones NEGATIVE Urine Nitrite NEGATIVE Urine Bilirubin NEGATIVE Urine Urobilinogen NEGATIVE Urine Leukocyte NEGATIVE Esterase Urine Microscopic 10 H RBC Urine Microscopic 2 WBC Urine Bacteria MODERATE Urine Hemoglobin NEGATIVE Urine Random 68.50 Creatinine Urine Random 59 Sodium Urine Glucose 3+ H Urine Total > 600.0 H Protein Bedside Glucose 205 217 Test 08/23/18 20:12 08/24/18 06:15 Bedside Glucose 138 White Blood Count 7.4 # Red Blood Count 3.06 #L Hemoglobin 8.3 #L Hematocrit 25.1 #L Mean Corpuscular 82.0 Volume Mean Corpuscular 27.1 L Hemoglobin Mean Corpuscular 33.1 Hemoglobin Concent Red Cell 14.3 Distribution Width Platelet Count 233 # Mean Platelet 9.3 Volume Immature 0.400 Granulocytes % Neutrophils % 54.6 Lymphocytes % 28.1 Monocytes % 8.7 Eosinophils % 7.7 H Basophils % 0.5 Nucleated Red 0.0 Blood Cells % Immature 0.030 Granulocytes # Neutrophils # 4.0 Lymphocytes # 2.1 Monocytes # 0.6 Eosinophils # 0.6 H Basophils # 0.0 Nucleated Red 0.0 Blood Cells # Sodium Level 142 Potassium Level 3.8 Chloride Level 121 H Carbon Dioxide 17 L Level Anion Gap 4 L Blood Urea 35 H Nitrogen Creatinine 4.35 H Est Glomerular 14 L Filtrat Rate mL/min Glucose Level 71 # Hemoglobin A1c 6.3 H Calcium Level 7.4 L Phosphorus Level 5.9 H Magnesium Level 1.8 Total Bilirubin 0.1 L Direct Bilirubin 0.00 Indirect Bilirubin 0.1 Aspartate Amino 27 Transf (AST/SGOT) Alanine 24 Aminotransferase ( ALT/SGPT) Alkaline 149 H Phosphatase Total Protein 4.8 L Albumin 1.8 L Globulin 3.00 Albumin/Globulin 0.60 Ratio Triglycerides 106 Level Cholesterol Level 135 LDL Cholesterol, 83 Calculated HDL Cholesterol 31 Cholesterol/HDL 4.3 Ratio Home Meds Reported Medications Lactose-Free Food (Ensure High Protein) 237 Ml Liquid, 237 ML PO 08/23/18 Aspirin* (Aspirin* Chew) 81 Mg Tab.chew, 81 MG PO DAILY, TAB.CHEW 08/23/18 Insulin Glargine* (Lantus*) 100 Unit/Ml Soln, 15 UNIT SC QHS, #1 VIAL 08/23/18 Insulin Isophan/Regular (Humulin 70/30) 100 Units/Ml Susp, 3 UNIT SC AC BREAKFAST DINNER, EA 08/23/18 Methadone Hcl* (Methadone*) 10 Mg Tab, 40 MG PO, TAB 07/06/18 Sennosides* (Senna Lax*) 8.6 Mg Tablet, 2 TAB PO QHS, TAB 07/06/18 Zinc Sulfate* (Zinc Sulfate*) 220 Mg Cap, 220 MG PO DAILY, CAP 07/06/18 Carvedilol* (Carvedilol*) 25 Mg Tablet, 25 MG PO BID, #60 TAB HOLD IF SBP<110 OR HR <60 07/06/18 Multivitamin (Multivitamins) 1 Each Capsule, 1 EACH PO, CAP 07/06/18 Clonidine Hcl* (Catapres*) 0.3 Mg Tablet, 0.3 MG PO Q8 PRN for ELEVATED BLOOD PRESSURE, TAB FOR SBP>170 07/06/18 Ascorbic Acid (Vitamin C) 500 Mg Tab, 1000 MG PO BID, TAB 07/06/18 Amlodipine Besylate* (Norvasc*) 10 Mg Tablet, 10 MG PO BID, TAB 07/06/18 Docusate Sodium* (Colace*) 100 Mg Capsule, 200 MG PO QPM, #30 CAP 07/06/18 Docusate Sodium* (Colace*) 100 Mg Capsule, 200 MG PO QAM, #60 CAP 07/06/18 Hydralazine Hcl* (Hydralazine Hcl*) 50 Mg Tab, 100 MG PO Q8H, #120 TAB HOLD IF SBP<100 07/06/18 Glipizide* (Glipizide*) 5 Mg Tablet, 5 MG PO BID, TAB 07/05/18 Levetiracetam* (Keppra*) 500 Mg Tablet, 500 MG PO BID, TAB 07/05/18 Medications Current Medications Ascorbic Acid (Vitamin C) 1,000 mg BID PO Last administered on 08/23/18at 20:14; Admin Dose 1,000 MG; Start 08/23/18 at 11:00 Carvedilol (Coreg) 25 mg BID PO Last administered on 08/23/18at 20:14; Admin Dose 25 MG; Start 08/23/18 at 11:00 Docusate Sodium (Colace) 200 mg QAM PO Last administered on 08/23/18at 11:39; Admin Dose 200 MG; Start 08/23/18 at 11:00 Docusate Sodium (Colace) 200 mg QPM PO Last administered on 08/23/18 20:13; A dmin Dose 200 MG; Start 08/23/18 at 21:00 Hydralazine HCl (Apresoline) 100 mg Q8H PO Last administered on 08/24/18 03:00; Admin Dose 100 MG; Start 08/23/18 at 11:00 Levetiracetam (Keppra) 500 mg BID PO Last administered on 08/23/18 20:14; Admin Dose 500 MG; Start 08/23/18 at 11:00 Senna (Senokot) 2 tab QHS PO Last administered on 08/23/18 20:23; Admin Dose 2 TAB; Start 08/23/18 at 21:00 Multivitamins Therapeutic (Theragran) 1 tab DAILY PO Last administered on 08/23/18 11:39; Admin Dose 1 TAB; Start 08/23/18 at 11:00 Clonidine (Catapres) 0.1 mg Q6H PRN PO sbp>170 Last administered on 08/24/18at 0 0:30; Admin Dose 0.1 MG; Start 08/23/18 at 10:00 IV Flush (NS 3 ml) 3 ml PER PROTOCOL IV ; Start 08/23/18 at 10:00 Miscellaneous Information (Pending [facility] Order For Wound Care) This patient hugo... PRN PRN XX WOUND CARE; Start 08/23/18 at 10:30 Hydromorphone HCl (Dilaudid) 1 mg Q4H PRN IV SEVERE PAIN LEVEL 7-10 Last administered on 08/24/18 04:03; Admin Dose 1 MG; Start 08/23/18 at 11:30 Diagnostic Test (Pha) (Accu-Chek) 1 ea 02 XX ; Start 08/24/18 at 02:00 Insulin Glargine (Lantus) 29 units DAILY@0800 SC Last administered on 08/23/18 13:39; Admin Dose 29 UNITS; Start 08/23/18 at 13:00 Insulin Aspart (Novolog Insulin Pen) 5 unit WITH MEALS SC Last administered on 08/23/18 17:31; Admin Dose 5 UNIT; Start 08/23/18 at 17:55 Insulin Aspart (Novolog Insulin Pen) NOVOLOG *MILD* ALGORITHM WITH MEALS BEDTIME SC Last administered on 08/23/18at 17:30; Admin Dose 2 UNIT; Start 08/23/18 at 17:55 Zinc Sulfate (Zinc Sulfate) 220 mg DAILY PO ; Start 08/24/18 at 09:00; Stop 09/04/18 at 09:01 Quetiapine Fumarate (Seroquel) 50 mg HS PRN PO SLEEP Last administered on 08/24/18at 01:18; Admin Dose 50 MG; Start 08/24/18 at 01:30 Assessment/Plan Hospital Course (Demo Recall) 52-year-old male has a history of advanced liver cirrhosis/ascites, diabetes, daily smoking, diabetic retinopathy, congestive heart failure, chronic obstructive pulmonary disease, chronic kidney disease, seizure disorders, left toe amputation and right below-knee amputation. He initially presented to [facility] with worsening bilateral scrotal edema with intractable pain. Patient was transferred to [facility] because of his insurance. He states that he was on hospice but now he wants to be full code. Patient did not have any chest pain, palpitation, nausea, vomiting, dizziness, loss of consciousness, headache, numbness, tingling, fever, chills or other constitutional symptoms. A urological consultation was requested because of the scrotal swelling and pain. CT scan of the abdomen and pelvis showed 1. Liver cirrhosis. Correlate with clinical history. Large amount of intra- abdominal/pelvic ascites. Generalized anasarca. 2. Diffuse thickening of the hirsch of the bladder, cannot exclude cystitis. 3. No gross evidence of bowel obstruction. Stool filled loops of large bowel suggestive of constipation. The appendix is within normal limits. 4. Mild atherosclerosis aorta. 5. Retroperitoneal sub centimeter lymph nodes, probably reactive. 6. No gross renal/ureteric calculi. No evidence of obstructive uropathy. 7. Large bilateral hydroceles and scrotal edema. On the examination he does have abdominal ascites, edema of the pubic area and upper thighs. He also does have large amount of edema of the penis and scrotum. The scrotal swelling is part of his generalized anasarca. The penoscrotal swelling has decreased. Continue to keep the scrotum elevated on a towel all the time and anasarca treatment as per the medical team PEDRO BLANC MD Aug 24, 2018 08:15
[2018-08-24] MEDS ORDERED: METOLAZONE 5 MG TAB PO ONE (08:30)
[2018-08-24] MEDS: LEVETIRACETAM 500 MG TAB PO SCH ×2 (09:29→21:20)
[2018-08-24] MEDS: ZINC SULFATE 220 MG CAP PO SCH (09:29)
[2018-08-24] MEDS: MULTIVITAMINS THERAPEUTIC TAB PO SCH (09:31)
[2018-08-24] MEDS: ASCORBIC ACID 500 MG TAB PO SCH ×2 (09:31→21:22)
[2018-08-24] MEDS: FUROSEMIDE 40 MG INJ IV SCH ×2 (09:38→17:39)
[2018-08-24] MEDS: PSYLLIUM 28% PACKET PO SCH ×2 (09:38→21:22)
--- NOTE | 2018-08-24 09:47 | PN ---
DATE: 08/24/2018 SUBJECTIVE: The patient continues to have abdominal pain, pending paracentesis today. The patient w as also informed about his underlying chronic kidney disease that he has advanced toward stage V. Th e patient does not wish to have hemodialysis. The patient also complained of scrotal edema. No othe r events noted. OBJECTIVE: VITAL SIGNS: Blood pressure is 183/87, respirations 19, pulse 65, temperature 98.3. HEENT: Head is normocephalic. NECK: Supple. HEART: Regular rate. LUNGS: Show diminished breath sounds at the base. ABDOMEN: Soft, distended. No rebound or guarding. EXTREMITIES: Negative for clubbing, cyanosis. Positive edema. The patient also has right below-kne e amputation. GENITOURINARY: The patient has noted scrotal edema. DERMATOLOGIC: No rashes. MUSCULOSKELETAL: No joint effusion. MEDICATIONS: Reviewed. LABORATORY DATA: Reviewed. IMAGING STUDIES: Reviewed. ASSESSMENT AND PLAN: 1. Nonoliguric acute kidney injury on top of chronic kidney disease stage IV with previous baseline creatinine of 3.5 mg/dL. Etiology of current acute kidney injury may be secondary to hemodynamics ve rsus progression of underlying disease. Please note I spoke with the patient about the possibility o f initiating hemodialysis. The patient states he does not wish to be started on dialysis at this melissa e, but states that if he absolutely had to have dialysis, he would agree. The patient states that he is still urinating and would like to continue current medical care. We will therefore continue diur etic regimen. We will adjust diuretics. We will continue to monitor renal function and electrolytes closely. 2. Volume overload. Etiology is secondary to advanced chronic kidney failure, congestive heart fail ure. We will intensify the patient's diuretic regimen of Lasix 40 mg IV b.i.d. We will add metolazo ne, monitor urinary function and electrolytes closely. 3. Metabolic acidosis secondary to chronic kidney disease. Continue to monitor. Consider bicarbona te therapy. 4. Anemia. Continue to monitor hemoglobin and hematocrit levels. 5. Mineral bone disorder. Monitor calcium and phosphorus levels. The patient will be started on ph osphate binders. 6. Cirrhosis decompensated with abdominal ascites. The patient is pending paracentesis. 7. Scrotal edema, likely secondary to advanced chronic kidney, volume overload. Continue to elevate testes. Follow up with Urology. 8. Hypertension. Continue current blood pressure regimen. 9. Diabetes. Continue current insulin regimen. 10. History of right below-knee amputation. 11. Seizure disorder. Continue Keppra. Dictated By: BON LOPEZ/KVNG Conf#: [id number] DID#: [id number] CC: VADIM CORRIGAN MD; PEDRO BLANC MD;*EndCC*
[2018-08-24] MEDS ORDERED: GLUCOSE GEL 15 GRAM TUBE PO PRN ×2 (10:00)
[2018-08-24] MEDS ORDERED: GLUCAGON 1 MG INJ IM PRN (10:00)
[2018-08-24] MEDS ORDERED: DEXTROSE 50% 50 ML SYRINGE IV PRN ×2 (10:00)
[2018-08-24] MEDS ORDERED: GLUCOSE GEL 15 GRAM TUBE BUCCAL PRN (10:00)
[2018-08-24] MEDS ORDERED: METOLAZONE 2.5 MG TAB PO ONE (10:00)
--- NOTE | 2018-08-24 11:23 | PN ---
Date/Time of Note Date/Time of Note DATE: 08/24/18 TIME: 11:16 Assessment/Plan VTE Prophylaxis Risk score (from Ns)>0 risk: 5 SCD applied (from Ns): No SCD contraindicated: other Pharmacological prophylaxis: NA/contraindicated Pharm contraindication: liver dx, anticoag not tolerated Lines/Catheters IV [facility]ter [facility]from [facility] [place] Assessment/Plan Hospital Course SUBJECTIVE: Today pain is better. Scrotal swelling also improved. OBJECTIVE: Vital signs-see below PHYSICAL EXAM: Constitutional: Adequately built,not in acute distress. HEENT: Head atraumatic and normocephalic. Eyes: Extraocular muscles intact. Anicteric sclerae. Pupils equal bilaterally, reactive to light. NECK: Supple without lymph node. CHEST: Clear and good breath sounds equally. No wheezing. No rhonchi. HEART: S1, S2. Regular rate and rhythm. ABDOMEN: Distended abdomen w/+ascites.+Mild tenderness. Bowel sounds were present. EXTREMITIES: +Anasarca. Right BKA. Left foot bandaged. Toe amputation. NEUROLOGIC: Alert and oriented x3. No focal deficit. No sensory deficit. PSYCHOSOCIAL: No signs of depression. INTEGUMENTARY: No open wounds. :Diffuse crotal selling. ASSESSMENT AND PLAN:52 yo M w/CKD, advanced liver cirrhosis W/ascites, dm2,anemia,dm retinopathy,rt bka,lt toe amputee,dm ulcers,seizure disorders,chf,htn tx from [place] for scrotal swelling/pain... Diffuse scrotal edema with pain,likely dependent w/HF/liver disease -no evidence to suggest Fourniers' gangrene/testicular torsion. - reviewed scrotal ultrasound and no clinical evidence of orchitis -Recommend elevation of scrotum/diuretics to manage volume overload. Acute kidney injury on CKD -Urology managing. -Avoid nephrotoxins -Monitor renal function while on Lasix therapy. Decompensated advanced liver disease with cirrhosis/large volume ascites. -Ultrasound guided paracentesis with fluid cytology. -Continue diuretics. Add Aldactone if cleared from nephrology. -2 g sodium diet Acute decompensated congestive heart failure on chronic CHF -Diuresis, beta-blockers -Fluid Restriction up to 1 L/day -Monitor volume status closely -Cardiology consultation Hypertension -Uncontrolled -Increase Coreg to 50 mg twice daily. Continue hydralazine. Add Cardura. -Avoid CCB in light of edema. -PRN clonidine DMII -With too tight control. De-escalate insulin regimen. Obesity LLE ulcers W/s/p toe amputation, chronic -Wound care Right BKA -Patient is wheelchair-bound. Supportive care Seizure disorders, stable -on Keppra Chronic anemia of liver disease. -stable H&H. Monitor DVT prophylaxis: Not a candidate for anticoagulation secondary to advanced liver disease and coagulopathies. Disposition: Overall patient with improving scrotal swelling and pain. Patient needs ultrasound-guided paracentesis. If his symptoms remain stable over the next 24 to 48 hours, DC planning with outpatient follow-up. Patient was seen in collaboration with Dr. Valiente. Result Diagram: 08/24/18 0615 08/24/18 0615 Results 24hrs Laboratory Tests Test 08/23/18 12:16 08/23/18 12:44 08/23/18 13:31 08/23/18 17:26 White Blood Count 10.4 # Red Blood Count 4.18 #L Hemoglobin 11.1 #L Hematocrit 34.2 L Mean Corpuscular 81.8 L Volume Mean Corpuscular 26.6 L Hemoglobin Mean Corpuscular 32.5 Hemoglobin Concent Red Cell 14.2 Distribution Width Platelet Count 292 Mean Platelet 9.5 Volume Immature 1.000 H Granulocytes % Neutrophils % 63.9 Lymphocytes % 21.6 Monocytes % 6.9 Eosinophils % 6.2 Basophils % 0.4 Nucleated Red 0.0 Blood Cells % Immature 0.100 H Granulocytes # Neutrophils # 6.7 Lymphocytes # 2.3 Monocytes # 0.7 Eosinophils # 0.7 H Basophils # 0.0 Nucleated Red 0.0 Blood Cells # Sodium Level 139 Potassium Level 4.1 Chloride Level 118 H Carbon Dioxide 15 L Level Anion Gap 6 Blood Urea 34 H Nitrogen Creatinine 4.26 H Est Glomerular 15 L Filtrat Rate mL/min Glucose Level 170 Calcium Level 8.0 L B-Type Natriuretic 34749 H Peptide Urine Color YELLOW Urine Clarity SLIGHTLY CLOUDY A Urine pH 5.0 Urine Specific 1.014 [place] Urine Ketones NEGATIVE Urine Nitrite NEGATIVE Urine Bilirubin NEGATIVE Urine Urobilinogen NEGATIVE Urine Leukocyte NEGATIVE Esterase Urine Microscopic 10 H RBC Urine Microscopic 2 WBC Urine Bacteria MODERATE Urine Hemoglobin NEGATIVE Urine Random 68.50 Creatinine Urine Random 59 Sodium Urine Glucose 3+ H Urine Total > 600.0 H Protein Bedside Glucose 205 217 Test 08/23/18 20:12 08/24/18 06:15 08/24/18 08:20 08/24/18 09:05 Bedside Glucose 138 66 L 74 White Blood Count 7.4 # Red Blood Count 3.06 #L Hemoglobin 8.3 #L Hematocrit 25.1 #L Mean Corpuscular 82.0 Volume Mean Corpuscular 27.1 L Hemoglobin Mean Corpuscular 33.1 Hemoglobin Concent Red Cell 14.3 Distribution Width Platelet Count 233 # Mean Platelet 9.3 Volume Immature 0.400 Granulocytes % Neutrophils % 54.6 Lymphocytes % 28.1 Monocytes % 8.7 Eosinophils % 7.7 H Basophils % 0.5 Nucleated Red 0.0 Blood Cells % Immature 0.030 Granulocytes # Neutrophils # 4.0 Lymphocytes # 2.1 Monocytes # 0.6 Eosinophils # 0.6 H Basophils # 0.0 Nucleated Red 0.0 Blood Cells # Sodium Level 142 Potassium Level 3.8 Chloride Level 121 H Carbon Dioxide 17 L Level Anion Gap 4 L Blood Urea 35 H Nitrogen Creatinine 4.35 H Est Glomerular 14 L Filtrat Rate mL/min Glucose Level 71 # Hemoglobin A1c 6.3 H Calcium Level 7.4 L Phosphorus Level 5.9 H Magnesium Level 1.8 Total Bilirubin 0.1 L Direct Bilirubin 0.00 Indirect Bilirubin 0.1 Aspartate Amino 27 Transf (AST/SGOT) Alanine 24 Aminotransferase ( ALT/SGPT) Alkaline 149 H Phosphatase Total Protein 4.8 L Albumin 1.8 L Globulin 3.00 Albumin/Globulin 0.60 Ratio Triglycerides 106 Level Cholesterol Level 135 LDL Cholesterol, 83 Calculated HDL Cholesterol 31 Cholesterol/HDL 4.3 Ratio Test 08/24/18 09:28 Bedside Glucose 79 Exam/Review of Systems Exam Vitals Vital Signs Date Temp Pulse Resp B/P (MAP) Pulse Ox O2 O2 Flow FiO2 Time Delivery Rate 08/24/18 98.3 65 19 183/87 98 Room Air 07:12 (119) Intake and Output 08/23/18 08/23/18 08/24/18 1515:00 23:00 07:00 IntakeIntake Total 120 ml 300 ml 700 ml OutputOutput Total 550 ml 325 ml 300 ml BalanceBalance -430 ml -25 ml 400 ml Results Results 24hrs Laboratory Tests Test 08/23/18 12:16 08/23/18 12:44 08/23/18 13:31 08/23/18 17:26 White Blood Count 10.4 # Red Blood Count 4.18 #L Hemoglobin 11.1 #L Hematocrit 34.2 L Mean Corpuscular 81.8 L Volume Mean Corpuscular 26.6 L Hemoglobin Mean Corpuscular 32.5 Hemoglobin Concent Red Cell 14.2 Distribution Width Platelet Count 292 Mean Platelet 9.5 Volume Immature 1.000 H Granulocytes % Neutrophils % 63.9 Lymphocytes % 21.6 Monocytes % 6.9 Eosinophils % 6.2 Basophils % 0.4 Nucleated Red 0.0 Blood Cells % Immature 0.100 H Granulocytes # Neutrophils # 6.7 Lymphocytes # 2.3 Monocytes # 0.7 Eosinophils # 0.7 H Basophils # 0.0 Nucleated Red 0.0 Blood Cells # Sodium Level 139 Potassium Level 4.1 Chloride Level 118 H Carbon Dioxide 15 L Level Anion Gap 6 Blood Urea 34 H Nitrogen Creatinine 4.26 H Est Glomerular 15 L Filtrat Rate mL/min Glucose Level 170 Calcium Level 8.0 L B-Type Natriuretic 79188 H Peptide Urine Color YELLOW Urine Clarity SLIGHTLY CLOUDY A Urine pH 5.0 Urine Specific 1.014 [place] Urine Ketones NEGATIVE Urine Nitrite NEGATIVE Urine Bilirubin NEGATIVE Urine Urobilinogen NEGATIVE Urine Leukocyte NEGATIVE Esterase Urine Microscopic 10 H RBC Urine Microscopic 2 WBC Urine Bacteria MODERATE Urine Hemoglobin NEGATIVE Urine Random 68.50 Creatinine Urine Random 59 Sodium Urine Glucose 3+ H Urine Total > 600.0 H Protein Bedside Glucose 205 217 Test 08/23/18 20:12 08/24/18 06:15 08/24/18 08:20 08/24/18 09:05 Bedside Glucose 138 66 L 74 White Blood Count 7.4 # Red Blood Count 3.06 #L Hemoglobin 8.3 #L Hematocrit 25.1 #L Mean Corpuscular 82.0 Volume Mean Corpuscular 27.1 L Hemoglobin Mean Corpuscular 33.1 Hemoglobin Concent Red Cell 14.3 Distribution Width Platelet Count 233 # Mean Platelet 9.3 Volume Immature 0.400 Granulocytes % Neutrophils % 54.6 Lymphocytes % 28.1 Monocytes % 8.7 Eosinophils % 7.7 H Basophils % 0.5 Nucleated Red 0.0 Blood Cells % Immature 0.030 Granulocytes # Neutrophils # 4.0 Lymphocytes # 2.1 Monocytes # 0.6 Eosinophils # 0.6 H Basophils # 0.0 Nucleated Red 0.0 Blood Cells # Sodium Level 142 Potassium Level 3.8 Chloride Level 121 H Carbon Dioxide 17 L Level Anion Gap 4 L Blood Urea 35 H Nitrogen Creatinine 4.35 H Est Glomerular 14 L Filtrat Rate mL/min Glucose Level 71 # Hemoglobin A1c 6.3 H Calcium Level 7.4 L Phosphorus Level 5.9 H Magnesium Level 1.8 Total Bilirubin 0.1 L Direct Bilirubin 0.00 Indirect Bilirubin 0.1 Aspartate Amino 27 Transf (AST/SGOT) Alanine 24 Aminotransferase ( ALT/SGPT) Alkaline 149 H Phosphatase Total Protein 4.8 L Albumin 1.8 L Globulin 3.00 Albumin/Globulin 0.60 Ratio Triglycerides 106 Level Cholesterol Level 135 LDL Cholesterol, 83 Calculated HDL Cholesterol 31 Cholesterol/HDL 4.3 Ratio Test 08/24/18 09:28 Bedside Glucose 79 Medications Medication Current Medications Ascorbic Acid (Vitamin C) 1,000 mg BID PO Last administered on 08/24/18 09:31; Admin Dose 1,000 MG; Start 08/23/18 at 11:00 Carvedilol (Coreg) 25 mg BID PO Last administered on 08/24/18 09:31; Admin Dose 25 MG; Start 08/23/18 at 11:00 Hydralazine HCl (Apresoline) 100 mg Q8H PO Last administered on 08/24/18 03:00; Admin Dose 100 MG; Start 08/23/18 at 11:00 Levetiracetam (Keppra) 500 mg BID PO Last administered on 08/24/18 09:29; Admin Dose 500 MG; Start 08/23/18 at 11:00 Multivitamins Therapeutic (Theragran) 1 tab DAILY PO Last administered on 08/24/18 09:31; Admin Dose 1 TAB; Start 08/23/18 at 11:00 Clonidine (Catapres) 0.1 mg Q6H PRN PO sbp>170 Last administered on 08/24/18 00:30; Admin Dose 0.1 MG; Start 08/23/18 at 10:00 IV Flush (NS 3 ml) 3 ml PER PROTOCOL IV ; Start 08/23/18 at 10:00 Miscellaneous Information (Pending [facility] Order For Wound Care) This patient hugo... PRN PRN XX WOUND CARE; Start 08/23/18 at 10:30 Hydromorphone HCl (Dilaudid) 1 mg Q4H PRN IV SEVERE PAIN LEVEL 7-10 Last administered on 08/24/18at 09:00; Admin Dose 1 MG; Start 08/23/18 at 11:30 Diagnostic Test (Pha) (Accu-Chek) 1 ea 02 XX ; Start 08/24/18 at 02:00 Insulin Aspart (Novolog Insulin Pen) NOVOLOG *MILD* ALGORITHM WITH MEALS BEDTIME SC Last administered on 08/23/18at 17:30; Admin Dose 2 UNIT; Start 08/23/18 at 17:55 Zinc Sulfate (Zinc Sulfate) 220 mg DAILY PO Last administered on 08/24/18at 09:29; Admin Dose 220 MG; Start 08/24/18 at 09:00; Stop 09/04/18 at 09:01 Quetiapine Fumarate (Seroquel) 50 mg HS PRN PO SLEEP Last administered on 08/24/18at 01:18; Admin Dose 50 MG; Start 08/24/18 at 01:30 Furosemide (Lasix) 40 mg BID DIURETICS IV Last administered on 08/24/18at 09:38; Admin Dose 40 MG; Start 08/24/18 at 08:30 Sevelamer Carbonate (Renvela) 800 mg WITH MEALS PO ; Start 08/24/18 at 11:50 Docusate Sodium (Colace) 200 mg BID PO ; Start 08/24/18 at 21:00 Insulin Glargine (Lantus) 15 units QHS SC ; Start 08/24/18 at 21:00 Senna (Senokot) 2 tab Q12 PO ; Start 08/24/18 at 21:00 Psyllium Hydrophilic Mucilloid (Metamucil) 1 pkt BID PO Last administered on 08/24/18at 09:38; Admin Dose 1 PKT; Start 08/24/18 at 09:30 Miscellaneous Information 1 ea NOTE XX ; Start 08/24/18 at 10:00 Glucose (Glutose) 15 gm Q15M PRN PO DECREASED GLUCOSE; Start 08/24/18 at 10:00 Glucose (Glutose) 22.5 gm Q15M PRN PO DECREASED GLUCOSE; Start 08/24/18 at 10:00 Dextrose (D50w Syringe) 25 ml Q15M PRN IV DECREASED GLUCOSE; Start 08/24/18 at 10:00 Dextrose (D50w Syringe) 50 ml Q15M PRN IV DECREASED GLUCOSE; Start 08/24/18 at 10:00 Glucagon (Glucagen) 1 mg Q15M PRN IM DECREASED GLUCOSE; Start 08/24/18 at 10:00 Glucose (Glutose) 15 gm Q15M PRN BUCCAL DECREASED GLUCOSE; Start 08/24/18 at 10:00 ELY DOYLE NP Aug 24, 2018 11:23
[2018-08-24] MEDS: SEVELAMER CARBONATE 800 MG TABLET PO SCH ×2 (12:04→17:27)
[2018-08-24] MEDS ORDERED: LIDOCAINE 1% (MPF) 5 ML VIAL ONE (13:03)
[2018-08-24] MEDS ORDERED: DOXAZOSIN 2 MG TAB PO ONE (14:00)
[2018-08-24] MEDS ORDERED: NIFEdipine (XL) 30 MG TAB PO SCH (15:00)
--- NOTE | 2018-08-24 15:13 | RADRPT ---
Echocardiogram Report Patient Name: NUNU ARSHADPatient ID: [id number] : 1965 (52y 8m)Study Date: 08/23/2018 2:28:26 PM Gender: MAccession #: [id number] Tech: Andre Martínez RDCS Location: 532 Ref.Physician: ELY DOYLE Height(Cm): BSA: Weight(Kg): Quality: AdequateOrder Physician: ELY DOYLE Account #: Procedures: Echocardiographic Report: Transthoracic echocardiogram with complete 2D, M-Mode, and doppler examination. Indications: Evaluate Left Ventricular function. Measurements: 2D/M Mode Doppler Measurement Value Normal Range Measurement Value Normal Range LVIDd 2D 5.2 [ 4.2 - 5.8 ] cm AV Peak Moo 1.5 [ 100.0 - 170.0 ] cm/sec LVIDs 2D 3.2 [ 2.5 - 4.0 ] cm AV Peak PG 9.0 [ 2.0 - 9.0 ] mmHg LVPWd 2D 1.1 [ 0.6 - 1.0 ] cm LVOT Peak Moo 1.2 [ 70.0 - 110.0 ] cm/sec IVSd 2D 1.0 [ 0.6 - 1.0 ] cm LVOT Peak PG 6.0 [ 2.0 - 6.0 ] mmHg IVS/LVPW 2D 1.0 ratio MV E Peak Moo 0.9 [ 60.0 - 130.0 ] cm/sec AoR Diam 2D 2.9 [ 2.6 - 3.4 ] cm MV A Peak Moo 1.1 [ 100.0 - 120.0 ] cm/sec LA/Ao 2D 1 ratio MV E/A 0.8 [ 0.8 - 1.5 ] ratio LA Dimen 2D 3.2 [ 3.0 - 4.0 ] cm MV Decel Time 254 [ 104 - 258 ] msec Lat E` Moo 0.1 [ 10.0 - 15.0 ] cm/sec MV E/A 0.8 [ 0.8 - 1.5 ] ratio TR Peak Moo 2.3 [ 100.0 - 280.0 ] cm/sec TR Peak PG 20.0 mmHg RVSP 23.0 [ 10.0 - 36.0 ] mmHg RA Pressure 3.0 mmHg Findings: Left Ventricle: Lower limits of normal systolic function. Normal left ventricular cavity size. Mild concentric left ventricular hypertrophy. Ejection fraction is visually estimated at 50-55 %. Tissue Doppler/Mitral Doppler indices are consistent with impaired relaxation (Stage I diastolic dysfunction). Right Ventricle: Normal right ventricular size. Normal right ventricular systolic function. Left Atrium: The left atrium is normal in size. Right Atrium: The right atrium is normal in size. Mitral Valve: Normal appearance and function of the mitral valve with trace physiologic regurgitation. Aortic Valve: No significant aortic stenosis or insufficiency. Aortic cusps appear mildly calcified. Tricuspid Valve: Normal appearance of the tricuspid valve. The estimated Peak RVSP is 23 mmHg. There is trace tricuspid regurgitation. Pulmonic Valve: Normal pulmonic valve appearance. Pericardium: Normal pericardium with no significant pericardial effusion. Aorta: Normal aortic root. IVC: Normal size and normal respiratory collapse consistent with normal right atrial pressure. Conclusions: Lower limits of normal systolic function. Normal left ventricular cavity size. Mild concentric left ventricular hypertrophy. Ejection fraction is visually estimated at 50-55 %. Tissue Doppler/Mitral Doppler indices are consistent with impaired relaxation (Stage I diastolic dysfunction). Normal appearance and function of the mitral valve with trace physiologic regurgitation. Normal appearance of the tricuspid valve. The estimated Peak RVSP is 23 mmHg. There is trace tricuspid regurgitation. Electronically Signed By: Gonzalo Bro 2018-08-24 15:11:54 PDT
--- NOTE | 2018-08-24 17:33 | CONS ---
DATE OF ADMISSION: 08/23/2018 DATE OF CONSULTATION: 08/24/2018 TYPE OF CONSULTATION: Cardiology. REASON FOR CONSULTATION: PVCs, congestive heart failure. REQUESTING PROVIDER: Nena Doyle NP, from hospitalist service. HISTORY OF PRESENT ILLNESS: Mr. Morton is a 52-year-old male with a history of advanced liver cirrhosis with recurrent bouts of ascites, ongoing daily tobacco intake, diabetes with diabetic retinopathy, nephropathy, congestive heart failure with unknown EF to me at this time, COPD, chronic kidney disease, left toe amputation, right below the knee amputation, who presented initially to [facility] [place] with worsening bilateral scrotal edema and intractable pain. The patient had a negative troponin at outside hospital and underwent surgical evaluation for Clemente's gangrene which was ruled out. The patient was transferred to [facility] for ongoing evaluation and treatment. Since arrival at [facility], the patient continues to have uncontrolled systolic blood pressures as high as 208/110 today. The patient denies chest pain. No troponins were drawn here for my evaluation at this time. The patient has ongoing renal failure with creatinine of 4.35 and the patient's most recent chest x-ray has revealed bilateral small effusions, associated bilateral lung consolidations and patient has abdominal pelvic CT revealed liver cirrhosis, diffuse thickened hirsch of bladder, large bilateral hydroceles and scrotal edema. PAST MEDICAL HISTORY: As above in HPI. MEDICATIONS CURRENTLY IN HOSPITAL: 1. Colace 10 mg b.i.d. 2. Lantus 15 units subcutaneously at bedtime. 3. Senna 2 tabs q.12. 4. Carvedilol 50 mg b.i.d. 5. Cardura 2 mg daily and also 2 mg at bedtime. 6. Metamucil 1 packet b.i.d. 7. Zinc sulfate 220 mg daily. 8. Lasix 20 mg IV b.i.d. 9. Seroquel 50 mg at bedtime p.r.n. 9. Dilaudid p.r.n. 10. Hydralazine 100 mg q.8. 11. Keppra 700 mg b.i.d. 12. Multi-Efrain. 13. Clonidine p.r.n. ALLERGIES: 1. LISINOPRIL 2. METFORMIN. 3. TURKEY. SOCIAL HISTORY: Positive ongoing tobacco. No ETOH or illicit drug use. FAMILY HISTORY: No history of sudden cardiac or early CAD. REVIEW OF SYSTEMS: As above in HPI. CONSTITUTIONAL: Fevers, chills. PULMONARY: No current shortness of breath. CARDIOVASCULAR: No current chest pain. GASTROINTESTINAL: Liver cirrhosis, ascites. GENITOURINARY: Renal failure. PSYCHIATRIC: No documented psych history. NEUROLOGIC: No documented history of CVA. ENDOCRINE: Diabetes mellitus. PHYSICAL EXAMINATION: VITAL SIGNS: Temperature 98.2, blood pressure 208/110, pulse 64, respiratory rate 18, satting 98%. GENERAL: The patient is alert, awake and in no acute distress. NECK: JVP is approximately 9 to 10 cm water. CHEST: Decreased breath sounds at bases bilaterally. HEART: Regular rate and rhythm. Normal S1, S2, I/ systolic murmur. Nondisplaced PMI. ABDOMEN: Mildly distended but decrease status post paracentesis. No significant tenderness to palpation. Hypoactive bowel sounds. EXTREMITIES: Right lower extremity status post right BKA, left lower extremity skin breakdown. Difficult to palpate distal pulses posterior tibial or dorsalis pedis. LABORATORY DATA: Most recently from today, sodium 142, potassium 3.8, creatinine 4.3, BUN 35. BNP of 11,400. White blood cell count 7.4, hemoglobin 8.3, platelet count 233. IMAGING STUDIES: As above in HPI. No further imaging studies for my review at this time. ELECTROCARDIOGRAM: No electrocardiogram for my review at this time. IMPRESSION: 1. Congestive heart failure, question diastolic versus systolic, likely acute on chronic. 2. Premature ventricular contractions by telemetry, rule out acute coronary syndrome. 3. Hypertension, severe, uncontrolled. 4. Renal failure. 5. Liver cirrhosis. 6. Ascites, status post paracentesis. 7. Anemia, worsening. 8. Borderline urinary tract infection. 9. Scrotal edema. 10. Hydrocele. RECOMMENDATIONS: 1. At this time, we would maintain the patient on telemetry monitoring to follow rhythm and rate control closely. 2. We would continue the patient's baseline Cardura and it looks to be increased as well as carvedilol status post increase and continue the patient's Lasix diuresis and given cirrhosis we would likely add Aldactone and follow potassium closely as inpatient. 3. Check a 2D echo for this patient's ejection fraction, wall motion, rule any major valvular abnormalities. 4. Complete the patient's rule out for myocardial infarction to assure the patient's coughing symptoms are not resulted in acute coronary syndrome or acute myocardial infarction. 5. Check a baseline EKG now today and repeat EKG in morning to assess for any significant changes thereafter. 6. We will discontinue the patient's hydralazine 100 mg q.8 and the patient's Keppra and we will likely need to add additional antihypertensives to improve overall systolic blood pressure control. It appears the patient had been on Norvasc, which appears to have been discontinued. I discussed with primary team. Thank you for allowing me to take part in the care of this patient. I will continue to follow him very closely with you with further recommendations to be made as the patient progresses through his inpatient hospital clinical course. Dictated By: JESSA GALLARDO/KVNG Conf#: [id number] DID#: [id number] CC: NENA DOYLE DIPPER OPERATOR; VADIM CORRIGAN MD; PEDRO BLANC MD;*EndCC* MTDD
[2018-08-24] MEDS: hydrALAzine 20 MG INJ IV PRN (17:44)
[2018-08-24] MEDS: NIFEdipine (XL) 30 MG TAB PO SCH (21:20)
[2018-08-24] MEDS: DOCUSATE SODIUM 100 MG CAP PO SCH (21:21)
[2018-08-24] MEDS: SENNA TAB PO SCH (21:22)
[2018-08-24] MEDS: INSULIN GLARGINE [LANTus] (100 UNITS/ML) SYG SC SCH (21:29)
[2018-08-24] MEDS ORDERED: HYDROmorphONE 1 MG/ML SYG IV ONE (23:30)
[2018-08-25] VITALS (10 sets, daily range): BP systolic 141–191; BP diastolic 69–90; PULSE 76–89; RESP 18–20
[2018-08-25] MEDS: hydrALAzine 20 MG INJ IV PRN ×2 (01:07→15:26)
[2018-08-25] MEDS: ACCU-CHEK XX SCH (02:15)
[2018-08-25] MEDS: HYDROmorphONE 1 MG/ML SYG IV PRN ×6 (03:26→23:31)
[2018-08-25] MEDS: SPIRONOLACTONE 25 MG TAB PO SCH (06:08)
[2018-08-25] MEDS: FUROSEMIDE 40 MG INJ IV SCH ×2 (06:09→17:20)
[2018-08-25] MEDS: INSULIN ASPART [NOVOLOG] 3 ML PEN SC SCH ×4 (07:41→21:00)
[2018-08-25] MEDS: LEVETIRACETAM 500 MG TAB PO SCH ×2 (08:20→21:51)
[2018-08-25] MEDS: ZINC SULFATE 220 MG CAP PO SCH (08:20)
[2018-08-25] MEDS: ASCORBIC ACID 500 MG TAB PO SCH ×2 (08:20→21:51)
[2018-08-25] MEDS: SEVELAMER CARBONATE 800 MG TABLET PO SCH ×3 (08:21→17:20)
[2018-08-25] MEDS: MULTIVITAMINS THERAPEUTIC TAB PO SCH (08:21)
[2018-08-25] MEDS: DOCUSATE SODIUM 100 MG CAP PO SCH ×2 (08:21→21:51)
[2018-08-25] MEDS: SENNA TAB PO SCH ×2 (08:21→21:49)
[2018-08-25] MEDS: NIFEdipine (XL) 30 MG TAB PO SCH ×2 (08:22→21:49)
--- NOTE | 2018-08-25 08:48 | PN ---
DATE: 08/25/2018 SUBJECTIVE: The patient is stable, no events overnight. I spoke with the patient again about possib ility of hemodialysis. The patient refuses. No other events noted. OBJECTIVE: VITAL SIGNS: Blood pressure is 141/69, pulse 79, respirations 18, temperature 98.4. HEENT: Head is normocephalic. NECK: Supple. HEART: Regular rate. LUNGS: Show diminished breath sounds at the base. ABDOMEN: Soft, nontender to palpation. EXTREMITIES: Right below knee amputation, left lower extremity trace edema. GENITOURINARY: Positive scrotal edema. NEUROLOGIC: No focal deficits. MUSCULOSKELETAL: No joint effusion. MEDICATIONS: Reviewed. LABORATORY DATA: Reviewed. IMAGING STUDIES: Reviewed. ASSESSMENT AND PLAN: 1. Nonoliguric acute kidney injury on top of chronic kidney disease stage IV with previous baseline creatinine around 3.5 mg/dL. Etiology of acute kidney injury is secondary to hemodynamics versus pro gression of underlying chronic kidney disease. The patient's renal function has not improved. I spo ke with the patient about initiating dialysis. He is refusing at this time. At this point, we would continue current treatment plan. Continue current diuretic regimen, adjust as needed. Monitor I's and O's, electrolytes, hemodynamics closely. 2. Volume overload. Etiology is likely due to advanced chronic kidney disease, questionable compone nt of congestive heart failure. Continue current diuretic regimen of Lasix 40 mg IV b.i.d., add meto lazone intermittently to augment diuresis. The patient is on Aldactone. We will monitor closely. F ollow up 2D echo, follow up Cardiology recommendations. 3. Metabolic acidosis secondary to chronic kidney disease. Continue to monitor. Consider bicarbona te therapy. 4. Anemia. Monitor hemoglobin and hematocrit levels. 5. Mineral bone disorder. Monitor calcium and phosphorus levels. Continue phosphate binders. 6. Cirrhosis, decompensated. The patient is status post paracentesis. Continue to monitor. Contin ue current diuretic regimen. 7. Scrotal edema secondary to advanced chronic kidney disease, volume overload. Continue to elevate scrotum. 8. Hypertension. Continue current blood pressure regimen. 9. Diabetes. Continue current insulin regimen. 10. History of right below knee amputation. 11. Seizure disorder. Continue Carline. Dictated By: BON LOPEZ/KVNG Conf#: [id number] [facility]#: [id number] CC: PEDRO BLANC MD; VADIM CORRIGAN MD;*[facility]*
--- NOTE | 2018-08-25 10:57 | PN ---
Date/Time of Note Date/Time of Note DATE: 08/25/18 TIME: 10:53 Assessment/Plan VTE Prophylaxis Risk score (from Ns)>0 risk: 5 SCD applied (from [facility] [place]): No SCD contraindicated: other Pharmacological prophylaxis: NA/contraindicated Pharm contraindication: liver dx Lines/Catheters IV C[facility]ter Type (from [facility] Peripheral IV Urinary Cath still in place: No Assessment/Plan Hospital Course SUBJECTIVE: Scrotal swelling improved. OBJECTIVE: Vital signs-see below PHYSICAL EXAM: Constitutional: Adequately built,not in acute distress. HEENT: Head atraumatic and normocephalic. Eyes: Extraocular muscles intact. Anicteric sclerae. Pupils equal bilaterally, reactive to light. NECK: Supple without lymph node. CHEST: Clear and good breath sounds equally. No wheezing. No rhonchi. HEART: S1, S2. Regular rate and rhythm. ABDOMEN: Distended abdomen w/+ascites.+Mild tenderness. Bowel sounds were present. EXTREMITIES: +Anasarca. Right BKA. Left foot bandaged. Toe amputation. NEUROLOGIC: Alert and oriented x3. No focal deficit. No sensory deficit. PSYCHOSOCIAL: No signs of depression. INTEGUMENTARY: No open wounds. :Diffuse crotal selling. ASSESSMENT AND PLAN:52 yo M w/CKD, advanced liver cirrhosis W/ascites, dm2,anemia,dm retinopathy,rt bka,lt toe amputee,dm ulcers,seizure disorders,chf,htn tx from [place] for scrotal swelling/pain... Diffuse scrotal edema with pain,likely dependent w/HF/liver disease -no evidence to suggest Fourniers' gangrene/testicular torsion. -improving on elevation/ diuresis -appreciates urology f/u Acute kidney injury on CKD stage IV -baseline cr~3.5 -mgmt per nephro-refused HD -monitor Decompensated advanced liver disease with cirrhosis/large volume ascites. -s/p paracentesis (2300 cc)- f/u fluid study -Continue diuretics/ Aldactone renal fxn permits -2 g sodium diet -GI consult Acute decompensated diastolic congestive heart failure on chronic CHF -Diuresis, beta-blockers -Fluid Restriction up to 1 L/day -Monitor volume status closely -f/u cards recs Hypertension -now stable -cont.coreg/cardura/hydralazine/procardia -PRN clonidine DMII -now better control -cont.current regimen Obesity LLE ulcers W/s/p toe amputation, chronic -Wound care Right BKA -Patient is wheelchair-bound. Supportive care Seizure disorders, stable -on Keppra Chronic anemia of liver disease. -stable H&H. Monitor DVT prophylaxis: Not a candidate for anticoagulation secondary to advanced liver disease and coagulopathies. Disposition: Overall patient with improving scrotal swelling and pain. . If his symptoms remain stable over the next 24 to 48 hours, DC planning with outpatient follow-up. Patient was seen in collaboration with Dr. Valiente. Result Diagram: 08/25/18 0651 08/25/18 0651 Results 24hrs Laboratory Tests Test 08/24/18 11:16 08/24/18 12:03 08/24/18 17:36 08/24/18 21:18 Body Fluid Type PARACENTHESIS Body Fluid Volume 1000.0 Body Fluid Color COLORLESS Body Fluid Appearance CLEAR Body Fluid WBC 114 Body Fluid RBC (Auto) < 2000 Body Fluid 14.9 Polynuclear WBCs (%) Body Fluid 85.1 Mononuclear Cells % Auto Body Fluid Total < 2.0 Protein Body Fluid 139 Lactate Dehydrogenase Bedside Glucose 93 117 153 Test 08/25/18 01:46 08/25/18 06:51 08/25/18 07:30 Bedside Glucose 131 104 White Blood Count 8.2 Red Blood Count 3.32 L Hemoglobin 8.9 L Hematocrit 27.4 L Mean Corpuscular 82.5 Volume Mean Corpuscular 26.8 L Hemoglobin Mean Corpuscular 32.5 Hemoglobin Concent Red Cell Distribution 13.8 Width Platelet Count 283 # Mean Platelet Volume 9.5 Immature Granulocytes 0.400 % Neutrophils % 63.3 Lymphocytes % 22.2 Monocytes % 7.2 Eosinophils % 6.7 Basophils % 0.2 Nucleated Red Blood 0.0 Cells % Immature Granulocytes 0.030 # Neutrophils # 5.2 Lymphocytes # 1.8 Monocytes # 0.6 Eosinophils # 0.6 H Basophils # 0.0 Nucleated Red Blood 0.0 Cells # Sodium Level 142 Potassium Level 3.9 Chloride Level 117 H Carbon Dioxide Level 18 L Anion Gap 7 Blood Urea Nitrogen 40 H Creatinine 4.28 H Est Glomerular 15 L Filtrat Rate mL/min Glucose Level 73 Calcium Level 7.9 L Phosphorus Level 5.9 H Magnesium Level 1.8 Exam/Review of Systems Exam Vitals Vital Signs Date Temp Pulse Resp B/P (MAP) Pulse Ox O2 O2 Flow FiO2 Time Delivery Rate 08/25/18 98.4 79 18 141/69 97 07:13 (93) 08/25/18 Room Air 03:24 Intake and Output 08/24/18 08/24/18 08/25/18 1515:00 23:00 07:00 IntakeIntake Total 1000 ml 950 ml 500 ml OutputOutput Total 1050 ml 1600 ml 1300 ml BalanceBalance -50 ml -650 ml -800 ml Results Results 24hrs Laboratory Tests Test 08/24/18 11:16 08/24/18 12:03 08/24/18 17:36 08/24/18 21:18 Body Fluid Type PARACENTHESIS Body Fluid Volume 1000.0 Body Fluid Color COLORLESS Body Fluid Appearance CLEAR Body Fluid WBC 114 Body Fluid RBC (Auto) < 2000 Body Fluid 14.9 Polynuclear WBCs (%) Body Fluid 85.1 Mononuclear Cells % Auto Body Fluid Total < 2.0 Protein Body Fluid 139 Lactate Dehydrogenase Bedside Glucose 93 117 153 Test 08/25/18 01:46 08/25/18 06:51 08/25/18 07:30 Bedside Glucose 131 104 White Blood Count 8.2 Red Blood Count 3.32 L Hemoglobin 8.9 L Hematocrit 27.4 L Mean Corpuscular 82.5 Volume Mean Corpuscular 26.8 L Hemoglobin Mean Corpuscular 32.5 Hemoglobin Concent Red Cell Distribution 13.8 Width Platelet Count 283 # Mean Platelet Volume 9.5 Immature Granulocytes 0.400 % Neutrophils % 63.3 Lymphocytes % 22.2 Monocytes % 7.2 Eosinophils % 6.7 Basophils % 0.2 Nucleated Red Blood 0.0 Cells % Immature Granulocytes 0.030 # Neutrophils # 5.2 Lymphocytes # 1.8 Monocytes # 0.6 Eosinophils # 0.6 H Basophils # 0.0 Nucleated Red Blood 0.0 Cells # Sodium Level 142 Potassium Level 3.9 Chloride Level 117 H Carbon Dioxide Level 18 L Anion Gap 7 Blood Urea Nitrogen 40 H Creatinine 4.28 H Est Glomerular 15 L Filtrat Rate mL/min Glucose Level 73 Calcium Level 7.9 L Phosphorus Level 5.9 H Magnesium Level 1.8 Medications Medication Current Medications Ascorbic Acid (Vitamin C) 1,000 mg BID PO Last administered on 08/25/18at 08:20; Admin Dose 1,000 MG; Start 08/23/18 at 11:00 Hydralazine HCl (Apresoline) 100 mg Q8H PO Last administered on 08/25/18 03:26; Admin Dose 100 MG; Start 08/23/18 at 11:00 Levetiracetam (Keppra) 500 mg BID PO Last administered on 08/25/18 08:20; Admin Dose 500 MG; Start 08/23/18 at 11:00 Multivitamins Therapeutic (Theragran) 1 tab DAILY PO Last administered on 08/25/18 08:21; Admin Dose 1 TAB; Start 08/23/18 at 11:00 Clonidine (Catapres) 0.1 mg Q6H PRN PO sbp>160 Last administered on 08/24/18 13:30; Admin Dose 0.1 MG; Start 08/23/18 at 10:00 IV Flush (NS 3 ml) 3 ml PER PROTOCOL IV ; Start 08/23/18 at 10:00 Miscellaneous Information (Pending [facility] Order For Wound Care) This patient hugo... PRN PRN XX WOUND CARE; Start 08/23/18 at 10:30 Hydromorphone HCl (Dilaudid) 1 mg Q4H PRN IV SEVERE PAIN LEVEL 7-10 Last administered on 08/25/18 07:26; Admin Dose 1 MG; Start 08/23/18 at 11:30 Diagnostic Test (Pha) (Accu-Chek) 1 ea 02 XX Last administered on 08/25/18 02:15; Admin Dose 1 EA; Start 08/24/18 at 02:00 Insulin Aspart (Novolog Insulin Pen) NOVOLOG *MILD* ALGORITHM WITH MEALS BEDTIME SC Last administered on 08/23/18 17:30; Admin Dose 2 UNIT; Start 08/23/18 at 17:55 Zinc Sulfate (Zinc Sulfate) 220 mg DAILY PO Last administered on 08/25/18 08:20; Admin Dose 220 MG; Start 08/24/18 at 09:00; Stop 09/04/18 at 09:01 Quetiapine Fumarate (Seroquel) 50 mg HS PRN PO SLEEP Last administered on 08/24/18 22:35; Admin Dose 50 MG; Start 08/24/18 at 01:30 Furosemide (Lasix) 40 mg BID DIURETICS IV Last administered on 7/4/19at 06:09; Admin Dose 40 MG; Start 08/24/18 at 08:30 Sevelamer Carbonate (Renvela) 800 mg WITH MEALS PO Last administered on 08/25/18 08:21; Admin Dose 800 MG; Start 08/24/18 at 11:50 Docusate Sodium (Colace) 200 mg BID PO Last administered on 08/25/18 08:21; Admin Dose 200 MG; Start 08/24/18 at 21:00 Insulin Glargine (Lantus) 15 units QHS SC Last administered on 08/24/18 21:29; Admin Dose 15 UNITS; Start 08/24/18 at 21:00 Senna (Senokot) 2 tab Q12 PO Last administered on 08/25/18 08:21; Admin Dose 2 TAB; Start 08/24/18 at 21:00 Psyllium Hydrophilic Mucilloid (Metamucil) 1 pkt BID PO Last administered on 08/24/18 21:22; Admin Dose 1 PKT; Start 08/24/18 at 09:30 Miscellaneous Information 1 ea NOTE XX ; Start 08/24/18 at 10:00 Glucose (Glutose) 15 gm Q15M PRN PO DECREASED GLUCOSE; Start 08/24/18 at 10:00 Glucose (Glutose) 22.5 gm Q15M PRN PO DECREASED GLUCOSE; Start 08/24/18 at 10:00 Dextrose (D50w Syringe) 25 ml Q15M PRN IV DECREASED GLUCOSE; Start 08/24/18 at 10:00 Dextrose (D50w Syringe) 50 ml Q15M PRN IV DECREASED GLUCOSE; Start 08/24/18 at 10:00 Glucagon (Glucagen) 1 mg Q15M PRN IM DECREASED GLUCOSE; Start 08/24/18 at 10:00 Glucose (Glutose) 15 gm Q15M PRN BUCCAL DECREASED GLUCOSE; Start 08/24/18 at 10:00 Doxazosin Mesylate (Cardura) 2 mg HS PO ; Start 08/25/18 at 21:00 Carvedilol (Coreg) 50 mg BID PO Last administered on 08/25/18 08:22; Admin Dose 50 MG; Start 08/24/18 at 21:00 Spironolactone (Aldactone) 25 mg DAILY@0600 PO Last administered on 7/4/19at 06:08; Admin Dose 25 MG; Start 08/25/18 at 06:00 Hydralazine HCl (Apresoline) 10 mg Q4H PRN IV SBP>170 Last administered on 08/25/18at 01:07; Admin Dose 10 MG; Start 08/24/18 at 14:30 Nifedipine (Procardia Xl) 60 mg BID PO Last administered on 08/25/18at 08:22; Admin Dose 60 MG; Start 08/24/18 at 19:15 ELY DOYLE V. CARE AID Aug 25, 2018 10:57
[2018-08-25] MEDS: PSYLLIUM 28% PACKET PO SCH ×2 (11:32→21:52)
--- NOTE | 2018-08-25 12:17 | CONS ---
Assessment/Plan Assessment/Plan Hospital Course (Demo Recall) Summary Assessment and Plan: Assessment: Advanced liver cirrhosis with ascites Reported history of hepatitis C, untreated Discuss diffuse scrotal edema with pain CARMELINA on CKD Congestive heart failure Hypertension Diabetes Left lower extremity ulcers Right BKA Seizure disorder Plan: Will order hepatitis panel with RNA Continue current diuretic regimen Start rifaximin as patient states he takes lactulose at home-we will choose rifaximin over lactulose and lactulose will cause multiple bowel movements may place patient at risk for skin breakdown Recommend out-pt EGD Patient seen in collaboration with Dr. Morales CC: NIK MORALES MD ; Consultation Date/Type/Reason Admit Date/Time Aug 23, 2018 at 05:55 Date of Consultation: Aug 25, 2018 Type of Consult GI Reason for Consultation Decompensated liver cirrhosis Date/Time of Note DATE: 08/25/18 TIME: 11:59 Hx of Present Illness This is a 52-year-old male with past medical history of. liver cirrhosis with recurrent ascites tobacco use, renal insufficiency, decompensated diastolic congestive heart failure, hypertension, diabetes type 2, retinopathy, obesity, right BKA, seizure disorder, chronic anemia, and reported history of hepatitis C, untreated. Who was transferred from [facility] for scrotal swelling and pain he is currently on spironolactone 25 mg p.o. daily, Lasix 40 mg twice daily. He is status post paracentesis 08/24/2018 with 2300 mL of clear yellow was obtained. Ascitic fluid studies are negative for SBP. Patient states at home he was on hospice care, he does admit this is mostly for the care services. Currently he is a full code here he denies nausea/vomiting abdominal pressure is improved post paracentesis patient also notes scrotal edema has improved since admission. He denies any overt signs of GI bleed including melena, hematochezia, or hematemesis. Review of Systems: [A 12 system, review was conducted and is negative except as noted in the HPI or here.] Past Medical History Medical History: congestive heart failure, diabetes, hypertension, renal disease, other (Liver cirrhosis and ascites and history of seizures) Home Meds Reported Medications Lactose-Free Food (Ensure High Protein) 237 Ml Liquid, 237 ML PO 08/23/18 Aspirin* (Aspirin* Chew) 81 Mg Tab.chew, 81 MG PO DAILY, TAB.CHEW 08/23/18 Insulin Glargine* (Lantus*) 100 Unit/Ml Soln, 15 UNIT SC QHS, #1 VIAL 08/23/18 Insulin Isophan/Regular (Humulin 70/30) 100 Units/Ml Susp, 3 UNIT SC AC BREAKFAST DINNER, EA 08/23/18 Methadone Hcl* (Methadone*) 10 Mg Tab, 40 MG PO, TAB 07/06/18 Sennosides* (Senna Lax*) 8.6 Mg Tablet, 2 TAB PO QHS, TAB 07/06/18 Zinc Sulfate* (Zinc Sulfate*) 220 Mg Cap, 220 MG PO DAILY, CAP 07/06/18 Carvedilol* (Carvedilol*) 25 Mg Tablet, 25 MG PO BID, #60 TAB HOLD IF SBP<110 OR HR <60 07/06/18 Multivitamin (Multivitamins) 1 Each Capsule, 1 EACH PO, CAP 07/06/18 Clonidine Hcl* (Catapres*) 0.3 Mg Tablet, 0.3 MG PO Q8 PRN for ELEVATED BLOOD PRESSURE, TAB FOR SBP>170 07/06/18 Ascorbic Acid (Vitamin C) 500 Mg Tab, 1000 MG PO BID, TAB 07/06/18 Amlodipine Besylate* (Norvasc*) 10 Mg Tablet, 10 MG PO BID, TAB 07/06/18 Docusate Sodium* (Colace*) 100 Mg Capsule, 200 MG PO QPM, #30 CAP 07/06/18 Docusate Sodium* (Colace*) 100 Mg Capsule, 200 MG PO QAM, #60 CAP 07/06/18 Hydralazine Hcl* (Hydralazine Hcl*) 50 Mg Tab, 100 MG PO Q8H, #120 TAB HOLD IF SBP<100 07/06/18 Glipizide* (Glipizide*) 5 Mg Tablet, 5 MG PO BID, TAB 07/05/18 Levetiracetam* (Keppra*) 500 Mg Tablet, 500 MG PO BID, TAB 07/05/18 Medications Current Medications Ascorbic Acid (Vitamin C) 1,000 mg BID PO Last administered on 08/25/18at 08:20; Admin Dose 1,000 MG; Start 08/23/18 at 11:00 Hydralazine HCl (Apresoline) 100 mg Q8H PO Last administered on 08/25/18 11:32; Admin Dose 100 MG; Start 08/23/18 at 11:00 Levetiracetam (Keppra) 500 mg BID PO Last administered on 08/25/18 08:20; Admin Dose 500 MG; Start 08/23/18 at 11:00 Multivitamins Therapeutic (Theragran) 1 tab DAILY PO Last administered on 08/25/18 08:21; Admin Dose 1 TAB; Start 08/23/18 at 11:00 Clonidine (Catapres) 0.1 mg Q6H PRN PO sbp>160 Last administered on 08/24/18 13:30; Admin Dose 0.1 MG; Start 08/23/18 at 10:00 IV Flush (NS 3 ml) 3 ml PER PROTOCOL IV ; Start 08/23/18 at 10:00 Miscellaneous Information (Pending [facility]) This patient hugo... PRN PRN XX WOUND CARE; Start 08/23/18 at 10:30 Hydromorphone HCl (Dilaudid) 1 mg Q4H PRN IV SEVERE PAIN LEVEL 7-10 Last adm inistered on 08/25/18 11:27; Admin Dose 1 MG; Start 08/23/18 at 11:30 Diagnostic Test (Pha) (Accu-Chek) 1 ea 02 XX Last administered on 08/25/18 02:15; Admin Dose 1 EA; Start 08/24/18 at 02:00 Insulin Aspart (Novolog Insulin Pen) NOVOLOG *MILD* ALGORITHM WITH MEALS BEDTIME SC Last administered on 08/23/18 17:30; Admin Dose 2 UNIT; Start 08/23/18 at 17:55 Zinc Sulfate (Zinc Sulfate) 220 mg DAILY PO Last administered on 08/25/18 08:20; Admin Dose 220 MG; Start 08/24/18 at 09:00; Stop 09/04/18 at 09:01 Quetiapine Fumarate (Seroquel) 50 mg HS PRN PO SLEEP Last administered on 08/24/18 22:35; Admin Dose 50 MG; Start 08/24/18 at 01:30 Furosemide (Lasix) 40 mg BID DIURETICS IV Last administered on 08/25/18 06:09; Admin Dose 40 MG; Start 08/24/18 at 08:30 Sevelamer Carbonate (Renvela) 800 mg WITH MEALS PO Last administered on 08/25/18 11:32; Admin Dose 800 MG; Start 08/24/18 at 11:50 Docusate Sodium (Colace) 200 mg BID PO Last administered on 08/25/18at 08:21; Admin Dose 200 MG; Start 08/24/18 at 21:00 Insulin Glargine (Lantus) 15 units QHS SC Last administered on 08/24/18at 21:29; Admin Dose 15 UNITS; Start 08/24/18 at 21:00 Senna (Senokot) 2 tab Q12 PO Last administered on 08/25/18 08:21; Admin Dose 2 TAB; Start 08/24/18 at 21:00 Psyllium Hydrophilic Mucilloid (Metamucil) 1 pkt BID PO Last administered on 08/25/18 11:32; Admin Dose 1 PKT; Start 08/24/18 at 09:30 Miscellaneous Information 1 ea NOTE XX ; Start 08/24/18 at 10:00 Glucose (Glutose) 15 gm Q15M PRN PO DECREASED GLUCOSE; Start 08/24/18 at 10:00 Glucose (Glutose) 22.5 gm Q15M PRN PO DECREASED GLUCOSE; Start 08/24/18 at 10:00 Dextrose (D50w Syringe) 25 ml Q15M PRN IV DECREASED GLUCOSE; Start 08/24/18 at 10:00 Dextrose (D50w Syringe) 50 ml Q15M PRN IV DECREASED GLUCOSE; Start 08/24/18 at 10:00 Glucagon (Glucagen) 1 mg Q15M PRN IM DECREASED GLUCOSE; Start 08/24/18 at 10:00 Glucose (Glutose) 15 gm Q15M PRN BUCCAL DECREASED GLUCOSE; Start 08/24/18 at 10:00 Doxazosin Mesylate (Cardura) 2 mg HS PO ; Start 08/25/18 at 21:00 Carvedilol (Coreg) 50 mg BID PO Last administered on 08/25/18at 08:22; Admin Dose 50 MG; Start 08/24/18 at 21:00 Spironolactone (Aldactone) 25 mg DAILY@0600 PO Last administered on 08/25/18at 06:08; Admin Dose 25 MG; Start 08/25/18 at 06:00 Hydralazine HCl (Apresoline) 10 mg Q4H PRN IV SBP>170 Last administered on 08/25/18at 01:07; Admin Dose 10 MG; Start 08/24/18 at 14:30 Nifedipine (Procardia Xl) 60 mg BID PO Last administered on 08/25/18at 08:22; Admin Dose 60 MG; Start 08/24/18 at 19:15 Allergies: Coded Allergies: lisinopril (Verified Allergy, Unknown, 07/05/18) metformin (Verified Allergy, Unknown, 07/05/18) turkey (Verified Allergy, Unknown, neck swelling , 07/06/18) Past Surgical History Past Surgical Hx: other (Right below-knee amputation and left toe amputation) Social History Smoking Status: Current every day smoker Exam/Review of Systems Exam Vitals Vital Signs Date Temp Pulse Resp B/P (MAP) Pulse Ox O2 O2 Flow FiO2 Time Delivery Rate 08/25/18 98.1 76 19 165/81 97 11:40 (109) 08/25/18 Room Air 03:24 Intake and Output 08/24/18 08/24/18 08/25/18 1515:00 23:00 07:00 IntakeIntake Total 1000 ml 950 ml 500 ml OutputOutput Total 1050 ml 1600 ml 1300 ml BalanceBalance -50 ml -650 ml -800 ml Constitutional: alert, oriented Psych: no complaints Head: normocephalic Eyes: nl conjunctiva ENMT: nl external ears & nose Neck: supple Respiratory: clear to auscultation Cardiovascular: regular rate and rhythm Gastrointestinal: ascites, bowel sounds, distended, splenomegaly Genitourinary - Male: other (Scrotal edema) Results Result Diagram: 08/25/18 0651 08/25/18 0651 Results 24hrs Laboratory Tests Test 08/24/18 12:03 08/24/18 17:36 08/24/18 21:18 08/25/18 01:46 Bedside Glucose 93 117 153 131 Test 08/25/18 06:51 08/25/18 07:30 White Blood Count 8.2 Red Blood Count 3.32 L Hemoglobin 8.9 L Hematocrit 27.4 L Mean Corpuscular Volume 82.5 Mean Corpuscular 26.8 L Hemoglobin Mean Corpuscular 32.5 Hemoglobin Concent Red Cell Distribution 13.8 Width Platelet Count 283 # Mean Platelet Volume 9.5 Immature Granulocytes % 0.400 Neutrophils % 63.3 Lymphocytes % 22.2 Monocytes % 7.2 Eosinophils % 6.7 Basophils % 0.2 Nucleated Red Blood 0.0 Cells % Immature Granulocytes # 0.030 Neutrophils # 5.2 Lymphocytes # 1.8 Monocytes # 0.6 Eosinophils # 0.6 H Basophils # 0.0 Nucleated Red Blood 0.0 Cells # Sodium Level 142 Potassium Level 3.9 Chloride Level 117 H Carbon Dioxide Level 18 L Anion Gap 7 Blood Urea Nitrogen 40 H Creatinine 4.28 H Est Glomerular Filtrat 15 L Rate mL/min Glucose Level 73 Calcium Level 7.9 L Phosphorus Level 5.9 H Magnesium Level 1.8 Bedside Glucose 104 Medications Medication Current Medications Ascorbic Acid (Vitamin C) 1,000 mg BID PO Last administered on 08/25/18 08:20; Admin Dose 1,000 MG; Start 08/23/18 at 11:00 Hydralazine HCl (Apresoline) 100 mg Q8H PO Last administered on 08/25/18 11:32; Admin Dose 100 MG; Start 08/23/18 at 11:00 Levetiracetam (Keppra) 500 mg BID PO Last administered on 08/25/18 08:20; Admin Dose 500 MG; Start 08/23/18 at 11:00 Multivitamins Therapeutic (Theragran) 1 tab DAILY PO Last administered on 08/25/18 08:21; Admin Dose 1 TAB; Start 08/23/18 at 11:00 Clonidine (Catapres) 0.1 mg Q6H PRN PO sbp>160 Last administered on 08/24/18 13:30; Admin Dose 0.1 MG; Start 08/23/18 at 10:00 IV Flush (NS 3 ml) 3 ml PER PROTOCOL IV ; Start 08/23/18 at 10:00 Miscellaneous Information (Pending Santyl Order For Wound Care) This patient hugo... PRN PRN XX WOUND CARE; Start 08/23/18 at 10:30 Hydromorphone HCl (Dilaudid) 1 mg Q4H PRN IV SEVERE PAIN LEVEL 7-10 Last administered on 08/25/18 11:27; Admin Dose 1 MG; Start 08/23/18 at 11:30 Diagnostic Test (Pha) (Accu-Chek) 1 ea 02 XX Last administered on 08/25/18 02:15; Admin Dose 1 EA; Start 08/24/18 at 02:00 Insulin Aspart (Novolog Insulin Pen) NOVOLOG *MILD* ALGORITHM WITH MEALS BEDTIME SC Last administered on 08/23/18 17:30; Admin Dose 2 UNIT; Start 08/23/18 at 17:55 Zinc Sulfate (Zinc Sulfate) 220 mg DAILY PO Last administered on 08/25/18 08:20; Admin Dose 220 MG; Start 08/24/18 at 09:00; Stop 09/04/18 at 09:01 Quetiapine Fumarate (Seroquel) 50 mg HS PRN PO SLEEP Last administered on 08/24/18 22:35; Admin Dose 50 MG; Start 08/24/18 at 01:30 Furosemide (Lasix) 40 mg BID DIURETICS IV Last administered on 08/25/18 06:09; Admin Dose 40 MG; Start 08/24/18 at 08:30 Sevelamer Carbonate (Renvela) 800 mg WITH MEALS PO Last administered on 08/25/18 11:32; Admin Dose 800 MG; Start 08/24/18 at 11:50 Docusate Sodium (Colace) 200 mg BID PO Last administered on 08/25/18 08:21; Admin Dose 200 MG; Start 08/24/18 at 21:00 Insulin Glargine (Lantus) 15 units QHS SC Last administered on 08/24/18 21:29; Admin Dose 15 UNITS; Start 08/24/18 at 21:00 Senna (Senokot) 2 tab Q12 PO Last administered on 08/25/18 08:21; Admin Dose 2 TAB; Start 08/24/18 at 21:00 Psyllium Hydrophilic Mucilloid (Metamucil) 1 pkt BID PO Last administered on 08/25/18 11:32; Admin Dose 1 PKT; Start 08/24/18 at 09:30 Miscellaneous Information 1 ea NOTE XX ; Start 08/24/18 at 10:00 Glucose (Glutose) 15 gm Q15M PRN PO DECREASED GLUCOSE; Start 08/24/18 at 10:00 Glucose (Glutose) 22.5 gm Q15M PRN PO DECREASED GLUCOSE; Start 08/24/18 at 10:00 Dextrose (D50w Syringe) 25 ml Q15M PRN IV DECREASED GLUCOSE; Start 08/24/18 at 10:00 Dextrose (D50w Syringe) 50 ml Q15M PRN IV DECREASED GLUCOSE; Start 08/24/18 at 10:00 Glucagon (Glucagen) 1 mg Q15M PRN IM DECREASED GLUCOSE; Start 08/24/18 at 10:00 Glucose (Glutose) 15 gm Q15M PRN BUCCAL DECREASED GLUCOSE; Start 08/24/18 at 10:00 Doxazosin Mesylate (Cardura) 2 mg HS PO ; Start 08/25/18 at 21:00 Carvedilol (Coreg) 50 mg BID PO Last administered on 08/25/18at 08:22; Admin Dose 50 MG; Start 08/24/18 at 21:00 Spironolactone (Aldactone) 25 mg DAILY@0600 PO Last administered on 08/25/18at 06:08; Admin Dose 25 MG; Start 08/25/18 at 06:00 Hydralazine HCl (Apresoline) 10 mg Q4H PRN IV SBP>170 Last administered on 08/25/18at 01:07; Admin Dose 10 MG; Start 08/24/18 at 14:30 Nifedipine (Procardia Xl) 60 mg BID PO Last administered on 08/25/18at 08:22; Admin Dose 60 MG; Start 08/24/18 at 19:15 SHIRIN MAURICE Aug 25, 2018 12:10
--- NOTE | 2018-08-25 14:59 | RADRPT ---
Vent Rate: 74 bpm RR Interval: 812 msec ND Interval: 189 msec QRS Duration: 78 msec QT Interval: 409 msec QTC Interval: 454 msec P-R-T [place]: 21 - 17 - -68 degrees Sinus rhythm...normal P axis, V-rate 50- 99 Nonspecific T abnormalities, diffuse leads...T <-0.10mV, ant/lat/inf Electronically Signed By: Ayush Dean
--- NOTE | 2018-08-25 15:46 | CONS ---
Consult Date/Type/Reason Admit Date/Time Aug 23, 2018 at 05:55 Initial Consult Date 08/25/18 Type of Consultation: Urology Requesting Provider: VADIM CORRIGAN MD Date/Time of Note DATE: 08/25/18 TIME: 15:44 Subjective NO acute events - Cr high - ongoing CHF - con't to remove fluid in conjunction with renal team. ROS: No fever, no chills, no nausea, no vomiting, no diarrhea/constipation + SOB Objective Vitals Vital Signs Date Temp Pulse Resp B/P (MAP) Pulse Ox O2 O2 Flow FiO2 Time Delivery Rate 08/25/18 98.4 89 19 170/80 96 15:17 (110) 08/25/18 Room Air 03:24 Intake and Output 08/24/18 08/24/18 08/25/18 1515:00 23:00 07:00 IntakeIntake Total 1000 ml 950 ml 500 ml OutputOutput Total 1050 ml 1600 ml 1300 ml BalanceBalance -50 ml -650 ml -800 ml Exam General: WN/WD/NAD, AOx 2-3 comfotrable - pain rx HEENT: Unicetric/atraumatic/EOMI ( follow commands) NECK: JVD elevated, no thyromegaly Lymph: no lymphadenopathy HEART: regular with no S3, II/ systolic murmur at apex, PMI L LUNGS: Coarse sounds ABD: soft, NT, ND, +BS : Intact Neuro: non focal SKIN: chronic changes EXT: poor pulses/ PAD Results/Medications Result Diagram: 08/25/18 0651 08/25/18 0651 Results 24 hrs Laboratory Tests Test 08/24/18 17:36 08/24/18 21:18 08/25/18 01:46 08/25/18 06:51 Bedside Glucose 117 153 131 White Blood Count 8.2 Red Blood Count 3.32 L Hemoglobin 8.9 L Hematocrit 27.4 L Mean Corpuscular Volume 82.5 Mean Corpuscular 26.8 L Hemoglobin Mean Corpuscular 32.5 Hemoglobin Concent Red Cell Distribution 13.8 Width Platelet Count 283 # Mean Platelet Volume 9.5 Immature Granulocytes % 0.400 Neutrophils % 63.3 Lymphocytes % 22.2 Monocytes % 7.2 Eosinophils % 6.7 Basophils % 0.2 Nucleated Red Blood 0.0 Cells % Immature Granulocytes # 0.030 Neutrophils # 5.2 Lymphocytes # 1.8 Monocytes # 0.6 Eosinophils # 0.6 H Basophils # 0.0 Nucleated Red Blood 0.0 Cells # Sodium Level 142 Potassium Level 3.9 Chloride Level 117 H Carbon Dioxide Level 18 L Anion Gap 7 Blood Urea Nitrogen 40 H Creatinine 4.28 H Est Glomerular Filtrat 15 L Rate mL/min Glucose Level 73 Calcium Level 7.9 L Phosphorus Level 5.9 H Magnesium Level 1.8 Hepatitis B Surface NEGATIVE Antigen Hepatitis B Surface POSITIVE H Antibody Hepatitis B Core REACTIVE H Total Antibody Hepatitis C Antibody REACTIVE H Test 08/25/18 07:30 08/25/18 11:37 08/25/18 14:01 Bedside Glucose 104 131 Creatine Kinase 375 H Creatine Kinase Index 1.9 Creatinine Kinase MB 7.14 H (Mass) Troponin I 0.042 Home Meds Reported Medications Lactose-Free Food (Ensure High Protein) 237 Ml Liquid, 237 ML PO 08/23/18 Aspirin* (Aspirin* Chew) 81 Mg Tab.chew, 81 MG PO DAILY, TAB.CHEW 08/23/18 Insulin Glargine* (Lantus*) 100 Unit/Ml Soln, 15 UNIT SC QHS, #1 VIAL 08/23/18 Insulin Isophan/Regular (Humulin 70/30) 100 Units/Ml Susp, 3 UNIT SC AC BREAKFAST DINNER, EA 08/23/18 Methadone Hcl* (Methadone*) 10 Mg Tab, 40 MG PO, TAB 07/06/18 Sennosides* (Senna Lax*) 8.6 Mg Tablet, 2 TAB PO QHS, TAB 07/06/18 Zinc Sulfate* (Zinc Sulfate*) 220 Mg Cap, 220 MG PO DAILY, CAP 07/06/18 Carvedilol* (Carvedilol*) 25 Mg Tablet, 25 MG PO BID, #60 TAB HOLD IF SBP<110 OR HR <60 07/06/18 Multivitamin (Multivitamins) 1 Each Capsule, 1 EACH PO, CAP 07/06/18 Clonidine Hcl* (Catapres*) 0.3 Mg Tablet, 0.3 MG PO Q8 PRN for ELEVATED BLOOD PRESSURE, TAB FOR SBP>170 07/06/18 Ascorbic Acid (Vitamin C) 500 Mg Tab, 1000 MG PO BID, TAB 07/06/18 Amlodipine Besylate* (Norvasc*) 10 Mg Tablet, 10 MG PO BID, TAB 07/06/18 Docusate Sodium* (Colace*) 100 Mg Capsule, 200 MG PO QPM, #30 CAP 07/06/18 Docusate Sodium* (Colace*) 100 Mg Capsule, 200 MG PO QAM, #60 CAP 07/06/18 Hydralazine Hcl* (Hydralazine Hcl*) 50 Mg Tab, 100 MG PO Q8H, #120 TAB HOLD IF SBP<100 07/06/18 Glipizide* (Glipizide*) 5 Mg Tablet, 5 MG PO BID, TAB 07/05/18 Levetiracetam* (Keppra*) 500 Mg Tablet, 500 MG PO BID, TAB 07/05/18 Medications Current Medications Ascorbic Acid (Vitamin C) 1,000 mg BID PO Last administered on 08/25/18 08:20; Admin Dose 1,000 MG; Start 08/23/18 at 11:00 Hydralazine HCl (Apresoline) 100 mg Q8H PO Last administered on 08/25/18at 11:32; Admin Dose 100 MG; Start 08/23/18 at 11:00 Levetiracetam (Keppra) 500 mg BID PO Last administered on 08/25/18 08:20; Admin Dose 500 MG; Start 08/23/18 at 11:00 Multivitamins Therapeutic (Theragran) 1 tab DAILY PO Last administered on 08/25/18 08:21; Admin Dose 1 TAB; Start 08/23/18 at 11:00 Clonidine (Catapres) 0.1 mg Q6H PRN PO sbp>160 Last administered on 08/24/18 13:30; Admin Dose 0.1 MG; Start 08/23/18 at 10:00 IV Flush (NS 3 ml) 3 ml PER PROTOCOL IV ; Start 08/23/18 at 10:00 Miscellaneous Information (Pending Santyl Order For Wound Care) This patient hugo... PRN PRN XX WOUND CARE; Start 08/23/18 at 10:30 Hydromorphone HCl (Dilaudid) 1 mg Q4H PRN IV SEVERE PAIN LEVEL 7-10 Last administered on 08/25/18 15:27; Admin Dose 1 MG; Start 08/23/18 at 11:30 Diagnostic Test (Pha) (Accu-Chek) 1 XX Last administered on 08/25/18 02:15; Admin Dose 1 EA; Start 08/24/18 at 02:00 Insulin Aspart (Novolog Insulin Pen) NOVOLOG *MILD* ALGORITHM WITH MEALS BEDTIME SC Last administered on 08/23/18 17:30; Admin Dose 2 UNIT; Start 08/23/18 at 17:55 Zinc Sulfate (Zinc Sulfate) 220 mg DAILY PO Last administered on 08/25/18 08:20; Admin Dose 220 MG; Start 08/24/18 at 09:00; Stop 09/04/18 at 09:01 Quetiapine Fumarate (Seroquel) 50 mg HS PRN PO SLEEP Last administered on 08/24/18 22:35; Admin Dose 50 MG; Start 08/24/18 at 01:30 Furosemide (Lasix) 40 mg BID DIURETICS IV Last administered on 08/25/18 06:09; Admin Dose 40 MG; Start 08/24/18 at 08:30 Sevelamer Carbonate (Renvela) 800 mg WITH MEALS PO Last administered on 08/25/18 11:32; Admin Dose 800 MG; Start 08/24/18 at 11:50 Docusate Sodium (Colace) 200 mg BID PO Last administered on 08/25/18 08:21; Admin Dose 200 MG; Start 08/24/18 at 21:00 Insulin Glargine (Lantus) 15 units QHS SC Last administered on 08/24/18 21:29; Admin Dose 15 UNITS; Start 08/24/18 at 21:00 Senna (Senokot) 2 tab Q12 PO Last administered on 08/25/18 08:21; Admin Dose 2 TAB; Start 08/24/18 at 21:00 Psyllium Hydrophilic Mucilloid (Metamucil) 1 pkt BID PO Last administered on 08/25/18 11:32; Admin Dose 1 PKT; Start 08/24/18 at 09:30 Miscellaneous Information 1 ea NOTE XX ; Start 08/24/18 at 10:00 Glucose (Glutose) 15 gm Q15M PRN PO DECREASED GLUCOSE; Start 08/24/18 at 10:00 Glucose (Glutose) 22.5 gm Q15M PRN PO DECREASED GLUCOSE; Start 08/24/18 at 10:00 Dextrose (D50w Syringe) 25 ml Q15M PRN IV DECREASED GLUCOSE; Start 08/24/18 at 10:00 Dextrose (D50w Syringe) 50 ml Q15M PRN IV DECREASED GLUCOSE; Start 08/24/18 at 10:00 Glucagon (Glucagen) 1 mg Q15M PRN IM DECREASED GLUCOSE; Start 08/24/18 at 10:00 Glucose (Glutose) 15 gm Q15M PRN BUCCAL DECREASED GLUCOSE; Start 08/24/18 at 10:00 Doxazosin Mesylate (Cardura) 2 mg HS PO ; Start 08/25/18 at 21:00 Carvedilol (Coreg) 50 mg BID PO Last administered on 08/25/18at 08:22; Admin Dose 50 MG; Start 08/24/18 at 21:00 Spironolactone (Aldactone) 25 mg DAILY@0600 PO Last administered on 08/25/18at 06:08; Admin Dose 25 MG; Start 08/25/18 at 06:00 Hydralazine HCl (Apresoline) 10 mg Q4H PRN IV SBP>170 Last administered on 08/25/18at 15:26; Admin Dose 10 MG; Start 08/24/18 at 14:30 Nifedipine (Procardia Xl) 60 mg BID PO Last administered on 08/25/18at 08:22; Admin Dose 60 MG; Start 08/24/18 at 19:15 Rifaximin (Xifaxan) 550 mg BID PO ; Start 08/25/18 at 21:00 Assessment/Plan Hospital Course (Demo Recall) 1. Congestive heart failure, question diastolic versus systolic, likely acute on chronic - con't diuresis as tolerated. 2. Premature ventricular contractions by telemetry, rule out acute coronary syndrome - satble on tele now. 3. Hypertension, severe, uncontrolled - BP better - con't to adjust Rx. 4. Renal failure - acute on chronic - renal team follows. 5. Liver cirrhosis. 6. Ascites, status post paracentesis- better now. 7. Anemia, worsening. 8. Borderline urinary tract infection - on antibx. 9. Scrotal edema. 10. Hydrocele. LOC YODER MD Aug 25, 2018 15:46
[2018-08-25] MEDS: RIFAXIMIN 550 MG TAB PO SCH (21:49)
[2018-08-25] MEDS: DOXAZOSIN 2 MG TAB PO SCH (21:49)
[2018-08-25] MEDS: INSULIN GLARGINE [LANTus] (100 UNITS/ML) SYG SC SCH (22:01)
[2018-08-25] MEDS ORDERED: AL HYDROX/MG HYDROX/SIMETH 30 ML CUP PO PRN (23:00)
[2018-08-25] MEDS: QUETIAPINE 25 MG TAB PO PRN (23:30)
[2018-08-26] VITALS (7 sets, daily range): BP systolic 137–177; BP diastolic 66–87; PULSE 72–88; RESP 18–21
[2018-08-26] MEDS: hydrALAzine 20 MG INJ IV PRN (00:46)
[2018-08-26] MEDS: ONDANSETRON 4 MG INJ IV PRN ×2 (00:46→10:29)
[2018-08-26] MEDS: QUETIAPINE 25 MG TAB PO PRN (02:07)
[2018-08-26] MEDS: ACCU-CHEK XX SCH (02:14)
[2018-08-26] MEDS: HYDROmorphONE 1 MG/ML SYG IV PRN ×2 (03:28→08:01)
[2018-08-26] MEDS: SPIRONOLACTONE 25 MG TAB PO SCH (06:05)
[2018-08-26] MEDS: FUROSEMIDE 40 MG INJ IV SCH ×2 (06:06→17:37)
[2018-08-26] MEDS: INSULIN ASPART [NOVOLOG] 3 ML PEN SC SCH ×4 (07:55→21:00)
--- NOTE | 2018-08-26 08:42 | PN ---
DATE: 08/26/2018 SUBJECTIVE: The patient is stable, continues to have swelling of his scrotum. No other events noted . OBJECTIVE: VITAL SIGNS: Blood pressure is 149/77, pulse 79, respirations 18, temperature 98.3. HEENT: Head is normocephalic. NECK: Supple. HEART: Regular rate. LUNGS: Show diminished breath sounds at the base. ABDOMEN: Soft, nontender to palpation. EXTREMITIES: Negative for clubbing, cyanosis. Positive below knee amputation. DERMATOLOGIC: No rashes. MUSCULOSKELETAL: No joint effusion. NEUROLOGIC: No change in exam. MEDICATIONS: Reviewed. LABORATORY DATA: Reviewed. IMAGING STUDIES: Reviewed. ASSESSMENT AND PLAN: 1. Nonoliguric acute kidney injury on top of chronic kidney disease stage IV with previous baseline creatinine around 3.5 mg/dL. Etiology of acute kidney injury is secondary to hemodynamics versus pro gression of underlying chronic kidney disease. The patient's renal function has not improved. Again , I spoke with the patient about dialysis, currently refusing at this time. We would therefore michelle nue current treatment plan, supportive care, renally dose all medications, monitor closely on current diuretic regimen. 2. Volume overload. The patient is clinically improving. Continue current diuretic regimen, monito r renal function and electrolytes closely. 3. Acute heart failure. The patient's 2D echo was reviewed, shows evidence of diastolic dysfunction . Continue current diuretic therapy and monitor renal function closely. 4. Metabolic acidosis secondary to acute kidney injury, chronic kidney disease. Continue to monitor . Consider bicarbonate therapy. 5. Mineral bone disorder. Continue phosphate binders. We will increase up titrate dose of Renagel. 6. Cirrhosis, decompensated, status post paracentesis. Continue medical management. Continue curre nt diuretic regimen. 7. Scrotal edema, likely secondary to volume overload due to advanced chronic kidney disease, cirrho sis. Continue to elevate scrotum. 8. Hypertension. Continue current blood pressure regimen. 9. History of right below knee amputation. 10. Seizure disorder. Continue Keppra. Dictated By: BON WHITAKER DO NR/NTS Conf#: [id number] DID#: [id number] CC: PEDRO BLANC MD; VADIM CORRIGAN MD;*[facility]*
[2018-08-26] MEDS: PSYLLIUM 28% PACKET PO SCH ×2 (09:00→21:19)
[2018-08-26] MEDS: RIFAXIMIN 550 MG TAB PO SCH ×2 (09:37→21:20)
[2018-08-26] MEDS: ZINC SULFATE 220 MG CAP PO SCH (09:37)
[2018-08-26] MEDS: MULTIVITAMINS THERAPEUTIC TAB PO SCH (09:38)
[2018-08-26] MEDS: ASCORBIC ACID 500 MG TAB PO SCH ×2 (09:38→21:20)
[2018-08-26] MEDS: SENNA TAB PO SCH ×2 (09:39→21:21)
[2018-08-26] MEDS: DOCUSATE SODIUM 100 MG CAP PO SCH ×2 (09:39→21:21)
[2018-08-26] MEDS: LEVETIRACETAM 500 MG TAB PO SCH ×2 (09:39→21:20)
[2018-08-26] MEDS: NIFEdipine (XL) 30 MG TAB PO SCH ×2 (09:39→21:21)
--- NOTE | 2018-08-26 10:36 | CONS ---
Consult Date/Type/Reason Admit Date/Time Aug 23, 2018 at 05:55 Initial Consult Date 08/25/18 Type of Consultation: Urology Requesting Provider: VADIM CORRIGAN MD Date/Time of Note DATE: 08/26/18 TIME: 10:34 Subjective No acute events - pt comfortable - no CP now - con't supportive rx. ROS: No fever, no chills, no nausea, no vomiting, no diarrhea/constipation No recent weight changes No chest pain, no PND, no orthopnea - mild SOB No dizziness, blurred vision No thirst, no heat or cold intolerance Objective Vitals Vital Signs Date Temp Pulse Resp B/P (MAP) Pulse Ox O2 O2 Flow FiO2 Time Delivery Rate 08/26/18 98.3 79 18 149/77 94 07:38 (101) 08/25/18 Room Air 03:24 Intake and Output 08/25/18 08/25/18 08/26/18 1414:59 22:59 06:59 IntakeIntake Total 240 ml 240 ml 650 ml OutputOutput Total 800 ml BalanceBalance 240 ml 240 ml -150 ml Exam General: WN/WD/NAD, AOx 2-3 HEENT: Unicetric/atraumatic/EOMI (follow commands) NECK: JVD elevated, no thyromegaly Lymph: no lymphadenopathy HEART: regular with no S3, II/ systolic murmur at apex, PMI L LUNGS: Coarse sounds ABD: soft, NT, ND, +BS : Intact Neuro: non focal SKIN: chronic changes EXT: trace edema Results/Medications Result Diagram: 08/26/18 0630 08/26/18 0630 Results 24 hrs Laboratory Tests Test 08/25/18 11:37 08/25/18 14:01 08/25/18 17:19 08/25/18 21:56 Bedside Glucose 131 123 189 Creatine Kinase 375 H Creatine Kinase Index 1.9 Creatinine Kinase MB 7.14 H (Mass) Troponin I 0.042 Test 08/26/18 02:02 08/26/18 06:30 08/26/18 08:00 Bedside Glucose 149 118 White Blood Count 7.3 Red Blood Count 3.10 L Hemoglobin 8.2 L Hematocrit 25.5 L Mean Corpuscular Volume 82.3 Mean Corpuscular 26.5 L Hemoglobin Mean Corpuscular 32.2 Hemoglobin Concent Red Cell Distribution 14.0 Width Platelet Count 235 Mean Platelet Volume 8.6 Immature Granulocytes % 0.400 Neutrophils % 57.9 Lymphocytes % 26.8 Monocytes % 9.7 Eosinophils % 4.8 Basophils % 0.4 Nucleated Red Blood 0.0 Cells % Immature Granulocytes # 0.030 Neutrophils # 4.3 Lymphocytes # 2.0 Monocytes # 0.7 Eosinophils # 0.4 Basophils # 0.0 Nucleated Red Blood 0.0 Cells # Prothrombin Time 13.6 Prothrombin Time Ratio 1.1 INR International 1.03 Normalized Ratio Sodium Level 142 Potassium Level 3.9 Chloride Level 117 H Carbon Dioxide Level 19 L Anion Gap 6 Blood Urea Nitrogen 44 H Creatinine 4.40 H Est Glomerular Filtrat 14 L Rate mL/min Glucose Level 102 Calcium Level 7.6 L Phosphorus Level 6.3 H Magnesium Level 1.7 Home Meds Reported Medications Lactose-Free Food (Ensure High Protein) 237 Ml Liquid, 237 ML PO 08/23/18 Aspirin* (Aspirin* Chew) 81 Mg Tab.chew, 81 MG PO DAILY, TAB.CHEW 08/23/18 Insulin Glargine* (Lantus*) 100 Unit/Ml Soln, 15 UNIT SC QHS, #1 VIAL 08/23/18 Insulin Isophan/Regular (Humulin 70/30) 100 Units/Ml Susp, 3 UNIT SC AC PADMINI KFAST DINNER, EA 08/23/18 Methadone Hcl* (Methadone*) 10 Mg Tab, 40 MG PO, TAB 07/06/18 Sennosides* (Senna Lax*) 8.6 Mg Tablet, 2 TAB PO QHS, TAB 07/06/18 Zinc Sulfate* (Zinc Sulfate*) 220 Mg Cap, 220 MG PO DAILY, CAP 07/06/18 Carvedilol* (Carvedilol*) 25 Mg Tablet, 25 MG PO BID, #60 TAB HOLD IF SBP<110 OR HR <60 07/06/18 Multivitamin (Multivitamins) 1 Each Capsule, 1 EACH PO, CAP 07/06/18 Clonidine Hcl* (Catapres*) 0.3 Mg Tablet, 0.3 MG PO Q8 PRN for ELEVATED BLOOD PRESSURE, TAB FOR SBP>170 07/06/18 Ascorbic Acid (Vitamin C) 500 Mg Tab, 1000 MG PO BID, TAB 07/06/18 Amlodipine Besylate* (Norvasc*) 10 Mg Tablet, 10 MG PO BID, TAB 5/15/19 Docusate Sodium* (Colace*) 100 Mg Capsule, 200 MG PO QPM, #30 CAP 07/06/18 Docusate Sodium* (Colace*) 100 Mg Capsule, 200 MG PO QAM, #60 CAP 07/06/18 Hydralazine Hcl* (Hydralazine Hcl*) 50 Mg Tab, 100 MG PO Q8H, #120 TAB HOLD IF SBP<100 07/06/18 Glipizide* (Glipizide*) 5 Mg Tablet, 5 MG PO BID, TAB 07/05/18 Levetiracetam* (Keppra*) 500 Mg Tablet, 500 MG PO BID, TAB 07/05/18 Medications Current Medications Ascorbic Acid (Vitamin C) 1,000 mg BID PO Last administered on 08/26/18 09:38; Admin Dose 1,000 MG; Start 08/23/18 at 11:00 Hydralazine HCl (Apresoline) 100 mg Q8H PO Last administered on 08/26/18 03:27; Admin Dose 100 MG; Start 08/23/18 at 11:00 Levetiracetam (Keppra) 500 mg BID PO Last administered on 08/26/18 09:39; Admin Dose 500 MG; Start 08/23/18 at 11:00 Multivitamins Therapeutic (Theragran) 1 tab DAILY PO Last administered on 08/26/18 09:38; Admin Dose 1 TAB; Start 08/23/18 at 11:00 Clonidine (Catapres) 0.1 mg Q6H PRN PO sbp>160 Last administered on 08/24/18 13:30; Admin Dose 0.1 MG; Start 08/23/18 at 10:00 IV Flush (NS 3 ml) 3 ml PER PROTOCOL IV ; Start 08/23/18 at 10:00 Miscellaneous Information ([facility] This patient hugo... PRN PRN XX WOUND CARE; Start 08/23/18 at 10:30 Hydromorphone HCl (Dilaudid) 1 mg Q4H PRN IV SEVERE PAIN LEVEL 7-10 Last administered on 08/26/18 08:01; Admin Dose 1 MG; Start 08/23/18 at 11:30 Diagnostic Test (Pha) (Accu-Chek) 1 ea 02 XX Last administered on 08/26/18 02:14; Admin Dose 1 EA; Start 08/24/18 at 02:00 Insulin Aspart (Novolog Insulin Pen) NOVOLOG *MILD* ALGORITHM WITH MEALS BEDTIME SC Last administered on 08/23/18 17:30; Admin Dose 2 UNIT; Start 08/23/18 at 17:55 Zinc Sulfate (Zinc Sulfate) 220 mg DAILY PO Last administered on 08/26/18 09:37; Admin Dose 220 MG; Start 08/24/18 at 09:00; Stop 09/04/18 at 09:01 Quetiapine Fumarate (Seroquel) 50 mg HS PRN PO SLEEP Last administered on 08/26/18 02:07; Admin Dose 50 MG; Start 08/24/18 at 01:30 Furosemide (Lasix) 40 mg BID DIURETICS IV Last administered on 08/26/18 06:06; Admin Dose 40 MG; Start 08/24/18 at 08:30 Docusate Sodium (Colace) 200 mg BID PO Last administered on 08/26/18 09:39; Admin Dose 200 MG; Start 08/24/18 at 21:00 Insulin Glargine (Lantus) 15 units QHS SC Last administered on 08/25/18 22:01; Admin Dose 15 UNITS; Start 08/24/18 at 21:00 Senna (Senokot) 2 tab Q12 PO Last administered on 08/26/18 09:39; Admin Dose 2 TAB; Start 08/24/18 at 21:00 Psyllium Hydrophilic Mucilloid (Metamucil) 1 pkt BID PO Last administered on 08/25/18 21:52; Admin Dose 1 PKT; Start 08/24/18 at 09:30 Miscellaneous Information 1 ea NOTE XX ; Start 08/24/18 at 10:00 Glucose (Glutose) 15 gm Q15M PRN PO DECREASED GLUCOSE; Start 08/24/18 at 10:00 Glucose (Glutose) 22.5 gm Q15M PRN PO DECREASED GLUCOSE; Start 08/24/18 at 10:00 Dextrose (D50w Syringe) 25 ml Q15M PRN IV DECREASED GLUCOSE; Start 08/24/18 at 10:00 Dextrose (D50w Syringe) 50 ml Q15M PRN IV DECREASED GLUCOSE; Start 08/24/18 at 10:00 Glucagon (Glucagen) 1 mg Q15M PRN IM DECREASED GLUCOSE; Start 08/24/18 at 10:00 Glucose (Glutose) 15 gm Q15M PRN BUCCAL DECREASED GLUCOSE; Start 08/24/18 at 10:00 Doxazosin Mesylate (Cardura) 2 mg HS PO Last administered on 08/25/18at 21:49; Admin Dose 2 MG; Start 08/25/18 at 21:00 Carvedilol (Coreg) 50 mg BID PO Last administered on 08/26/18at 09:38; Admin Dose 50 MG; Start 08/24/18 at 21:00 Spironolactone (Aldactone) 25 mg DAILY@0600 PO Last administered on 08/26/18at 06:05; Admin Dose 25 MG; Start 08/25/18 at 06:00 Hydralazine HCl (Apresoline) 10 mg Q4H PRN IV SBP>170 Last administered on 08/26/18at 00:46; Admin Dose 10 MG; Start 08/24/18 at 14:30 Nifedipine (Procardia Xl) 60 mg BID PO Last administered on 08/26/18at 09:39; Admin Dose 60 MG; Start 08/24/18 at 19:15 Rifaximin (Xifaxan) 550 mg BID PO Last administered on 08/26/18at 09:37; Admin Dose 550 MG; Start 08/25/18 at 21:00 Al Hydrox/Mg Hydrox/Simethicone (Mag-Al Plus) 30 ml Q6H PRN PO GASTROINTESTINAL UPSET; Start 08/25/18 at 23:00 Ondansetron HCl (Zofran Inj) 4 mg Q4H PRN IV NAUSEA AND/OR VOMITING Last administered on 08/26/18at 10:29; Admin Dose 4 MG; Start 08/26/18 at 01:00 Sevelamer Carbonate (Renvela) 1,600 mg WITH MEALS PO ; Start 08/26/18 at 11:50 Assessment/Plan Hospital Course (Demo Recall) 1. Congestive heart failure, question diastolic versus systolic, likely acute on chronic - con't diuresis as tolerated. Better now. 2. Premature ventricular contractions by telemetry, rule out acute coronary syndrome - stable on tele now. Now in sinus. 3. Hypertension, severe, uncontrolled - BP better - con't to adjust Rx. Well controlled. 4. Renal failure - acute on chronic - renal team follows. Renal team follows. 5. Liver cirrhosis. 6. Ascites, status post paracentesis- better now. Con't to keep euvolemic. 7. Anemia, worsening. 8. Borderline urinary tract infection - on antibx. 9. Scrotal edema. 10. Hydrocele. LOC YODER MD Aug 26, 2018 10:36
[2018-08-26] MEDS: SEVELAMER CARBONATE 800 MG TABLET PO SCH ×2 (11:42→17:38)
--- NOTE | 2018-08-26 11:43 | PN ---
Date/Time of Note Date/Time of Note DATE: 08/26/18 TIME: 11:31 Assessment/Plan VTE Prophylaxis Risk score (from Ns)>0 risk: 5 SCD applied (from [facility]): No SCD contraindicated: other Pharmacological prophylaxis: NA/contraindicated Pharm contraindication: liver dx, anticoag not tolerated Lines/Catheters IV [facility] Type [facility]from [facility] Saline Lock Urinary Cath still in place: No Assessment/Plan Hospital Course SUBJECTIVE: Scrotal swelling continues to improve.. OBJECTIVE: Vital signs-see below PHYSICAL EXAM: Constitutional: Adequately built,not in acute distress. HEENT: Head atraumatic and normocephalic. Eyes: Extraocular muscles intact. Anicteric sclerae. Pupils equal bilaterally, reactive to light. NECK: Supple without lymph node. CHEST: Clear and good breath sounds equally. No wheezing. No rhonchi. HEART: S1, S2. Regular rate and rhythm. ABDOMEN: Distended abdomen w/+ascites.+Mild tenderness. Bowel sounds were present. EXTREMITIES: +Anasarca. Right BKA. Left foot bandaged. Toe amputation. NEUROLOGIC: Alert and oriented x3. No focal deficit. No sensory deficit. PSYCHOSOCIAL: No signs of depression. INTEGUMENTARY: No open wounds. :Diffuse crotal selling. ASSESSMENT AND PLAN:52 yo M w/CKD, advanced liver cirrhosis W/ascites, dm2,anemia,dm retinopathy,rt bka,lt toe amputee,dm ulcers,seizure disorders,chf,[facility]... Diffuse scrotal edema with pain,likely dependent w/HF/liver disease -no evidence to suggest Fourniers' gangrene/testicular torsion. -improving on elevation/ diuresis -appreciates urology f/u Acute kidney injury on CKD stage IV -baseline cr~3.5 -Renal function w/ not much improvement. -mgmt per nephro-refused HD -monitor Decompensated advanced liver disease with cirrhosis/large volume ascites. -s/p paracentesis (2300 cc)- f/u fluid study -Continue diuretics/ Aldactone renal fxn permits -2 g sodium diet -GI consult Acute decompensated diastolic congestive heart failure on chronic CHF -Diuresis, beta-blockers -Fluid Restriction up to 1 L/day -Monitor volume status closely -f/u cards recs Hypertension -now stable -cont.coreg/cardura/hydralazine/procardia -PRN clonidine DMII -Stable blood sugar. -cont.current regimen Untreated hepatitis C -Follow-up GI recommendations. Obesity LLE ulcers W/s/p toe amputation, chronic -Wound care Right BKA -Patient is wheelchair-bound. Supportive care Seizure disorders, stable -on Keppra Chronic anemia of liver disease. -stable H&H. Monitor Chronic pain syndrome -What it appears like, patient also dependent on Dilaudid for pain control. After discussion with him, we have agreed to discontinue Dilaudid today and will try him on Percocet for breakthrough pain. DVT prophylaxis: Not a candidate for anticoagulation secondary to advanced liver disease and coagulopathies. Disposition: Overall patient with improving scrotal swelling and pain. Follow- up GI recommendations. Follow-up fluid studies. Patient was seen in collaboration with Dr. Valiente. Result Diagram: 08/26/18 0630 08/26/18 0630 Results 24hrs Laboratory Tests Test 08/25/18 11:37 08/25/18 14:01 08/25/18 17:19 08/25/18 21:56 Bedside Glucose 131 123 189 Creatine Kinase 375 H Creatine Kinase Index 1.9 Creatinine Kinase MB 7.14 H (Mass) Troponin I 0.042 Test 08/26/18 02:02 08/26/18 06:30 08/26/18 08:00 Bedside Glucose 149 118 White Blood Count 7.3 Red Blood Count 3.10 L Hemoglobin 8.2 L Hematocrit 25.5 L Mean Corpuscular Volume 82.3 Mean Corpuscular 26.5 L Hemoglobin Mean Corpuscular 32.2 Hemoglobin Concent Red Cell Distribution 14.0 Width Platelet Count 235 Mean Platelet Volume 8.6 Immature Granulocytes % 0.400 Neutrophils % 57.9 Lymphocytes % 26.8 Monocytes % 9.7 Eosinophils % 4.8 Basophils % 0.4 Nucleated Red Blood 0.0 Cells % Immature Granulocytes # 0.030 Neutrophils # 4.3 Lymphocytes # 2.0 Monocytes # 0.7 Eosinophils # 0.4 Basophils # 0.0 Nucleated Red Blood 0.0 Cells # Prothrombin Time 13.6 Prothrombin Time Ratio 1.1 INR International 1.03 Normalized Ratio Sodium Level 142 Potassium Level 3.9 Chloride Level 117 H Carbon Dioxide Level 19 L Anion Gap 6 Blood Urea Nitrogen 44 H Creatinine 4.40 H Est Glomerular Filtrat 14 L Rate mL/min Glucose Level 102 Calcium Level 7.6 L Phosphorus Level 6.3 H Magnesium Level 1.7 Exam/Review of Systems Exam Vitals Vital Signs Date Temp Pulse Resp B/P (MAP) Pulse Ox O2 O2 Flow FiO2 Time Delivery Rate 08/26/18 98.1 72 19 159/83 97 11:26 (108) 08/25/18 Room Air 03:24 Intake and Output 08/25/18 08/25/18 08/26/18 1414:59 22:59 06:59 IntakeIntake Total 240 ml 240 ml 650 ml OutputOutput Total 800 ml BalanceBalance 240 ml 240 ml -150 ml Results Results 24hrs Laboratory Tests Test 08/25/18 11:37 08/25/18 14:01 08/25/18 17:19 08/25/18 21:56 Bedside Glucose 131 123 189 Creatine Kinase 375 H Creatine Kinase Index 1.9 Creatinine Kinase MB 7.14 H (Mass) Troponin I 0.042 Test 08/26/18 02:02 08/26/18 06:30 08/26/18 08:00 Bedside Glucose 149 118 White Blood Count 7.3 Red Blood Count 3.10 L Hemoglobin 8.2 L Hematocrit 25.5 L Mean Corpuscular Volume 82.3 Mean Corpuscular 26.5 L Hemoglobin Mean Corpuscular 32.2 Hemoglobin Concent Red Cell Distribution 14.0 Width Platelet Count 235 Mean Platelet Volume 8.6 Immature Granulocytes % 0.400 Neutrophils % 57.9 Lymphocytes % 26.8 Monocytes % 9.7 Eosinophils % 4.8 Basophils % 0.4 Nucleated Red Blood 0.0 Cells % Immature Granulocytes # 0.030 Neutrophils # 4.3 Lymphocytes # 2.0 Monocytes # 0.7 Eosinophils # 0.4 Basophils # 0.0 Nucleated Red Blood 0.0 Cells # Prothrombin Time 13.6 Prothrombin Time Ratio 1.1 INR International 1.03 Normalized Ratio Sodium Level 142 Potassium Level 3.9 Chloride Level 117 H Carbon Dioxide Level 19 L Anion Gap 6 Blood Urea Nitrogen 44 H Creatinine 4.40 H Est Glomerular Filtrat 14 L Rate mL/min Glucose Level 102 Calcium Level 7.6 L Phosphorus Level 6.3 H Magnesium Level 1.7 Medications Medication Current Medications Ascorbic Acid (Vitamin C) 1,000 mg BID PO Last administered on 08/26/18at 09:38; Admin Dose 1,000 MG; Start 7/2/19 at 11:00 Hydralazine HCl (Apresoline) 100 mg Q8H PO Last administered on 08/26/18 03:27; Admin Dose 100 MG; Start 08/23/18 at 11:00 Levetiracetam (Keppra) 500 mg BID PO Last administered on 08/26/18 09:39; Admin Dose 500 MG; Start 08/23/18 at 11:00 Multivitamins Therapeutic (Theragran) 1 tab DAILY PO Last administered on 08/26/18 09:38; Admin Dose 1 TAB; Start 08/23/18 at 11:00 Clonidine (Catapres) 0.1 mg Q6H PRN PO sbp>160 Last administered on 08/24/18 13:30; Admin Dose 0.1 MG; Start 08/23/18 at 10:00 IV Flush (NS 3 ml) 3 ml PER PROTOCOL IV ; Start 08/23/18 at 10:00 Miscellaneous Information (Pending [facility] Order For Wound Care) This patient hugo... PRN PRN XX WOUND CARE; Start 08/23/18 at 10:30 Hydromorphone HCl (Dilaudid) 1 mg Q4H PRN IV SEVERE PAIN LEVEL 7-10 Last administered on 08/26/18 08:01; Admin Dose 1 MG; Start 08/23/18 at 11:30 Diagnostic Test (Pha) (Accu-Chek) 1 ea 02 XX Last administered on 08/26/18 02:14; Admin Dose 1 EA; Start 08/24/18 at 02:00 Insulin Aspart (Novolog Insulin Pen) NOVOLOG *MILD* ALGORITHM WITH MEALS BEDTIME SC Last administered on 08/23/18 17:30; Admin Dose 2 UNIT; Start 08/23/18 at 17:55 Zinc Sulfate (Zinc Sulfate) 220 mg DAILY PO Last administered on 08/26/18 09:37; Admin Dose 220 MG; Start 08/24/18 at 09:00; Stop 09/04/18 at 09:01 Quetiapine Fumarate (Seroquel) 50 mg HS PRN PO SLEEP Last administered on 08/26/18 02:07; Admin Dose 50 MG; Start 08/24/18 at 01:30 Furosemide (Lasix) 40 mg BID DIURETICS IV Last administered on 08/26/18 06:06; Admin Dose 40 MG; Start 08/24/18 at 08:30 Docusate Sodium (Colace) 200 mg BID PO Last administered on 08/26/18 09:39; Admin Dose 200 MG; Start 08/24/18 at 21:00 Insulin Glargine (Lantus) 15 units QHS SC Last administered on 08/25/18 22:01; Admin Dose 15 UNITS; Start 08/24/18 at 21:00 Senna (Senokot) 2 tab Q12 PO Last administered on 08/26/18 09:39; Admin Dose 2 TAB; Start 08/24/18 at 21:00 Psyllium Hydrophilic Mucilloid (Metamucil) 1 pkt BID PO Last administered on 08/25/18 21:52; Admin Dose 1 PKT; Start 08/24/18 at 09:30 Miscellaneous Information 1 ea NOTE XX ; Start 08/24/18 at 10:00 Glucose (Glutose) 15 gm Q15M PRN PO DECREASED GLUCOSE; Start 08/24/18 at 10:00 Glucose (Glutose) 22.5 gm Q15M PRN PO DECREASED GLUCOSE; Start 08/24/18 at 10:00 Dextrose (D50w Syringe) 25 ml Q15M PRN IV DECREASED GLUCOSE; Start 08/24/18 at 10:00 Dextrose (D50w Syringe) 50 ml Q15M PRN IV DECREASED GLUCOSE; Start 08/24/18 at 10:00 Glucagon (Glucagen) 1 mg Q15M PRN IM DECREASED GLUCOSE; Start 08/24/18 at 10:00 Glucose (Glutose) 15 gm Q15M PRN BUCCAL DECREASED GLUCOSE; Start 08/24/18 at 10:00 Doxazosin Mesylate (Cardura) 2 mg HS PO Last administered on 08/25/18 21:49; Admin Dose 2 MG; Start 08/25/18 at 21:00 Carvedilol (Coreg) 50 mg BID PO Last administered on 08/26/18 09:38; Admin Dose 50 MG; Start 08/24/18 at 21:00 Spironolactone (Aldactone) 25 mg DAILY@0600 PO Last administered on 08/26/18 06:05; Admin Dose 25 MG; Start 08/25/18 at 06:00 Hydralazine HCl (Apresoline) 10 mg Q4H PRN IV SBP>170 Last administered on 08/26/18 00:46; Admin Dose 10 MG; Start 08/24/18 at 14:30 Nifedipine (Procardia Xl) 60 mg BID PO Last administered on 08/26/18 09:39; Admin Dose 60 MG; Start 08/24/18 at 19:15 Rifaximin (Xifaxan) 550 mg BID PO Last administered on 08/26/18 09:37; Admin Dose 550 MG; Start 08/25/18 at 21:00 Al Hydrox/Mg Hydrox/Simethicone (Mag-Al Plus) 30 ml Q6H PRN PO GASTROINTESTINAL UPSET; Start 08/25/18 at 23:00 Ondansetron HCl (Zofran Inj) 4 mg Q4H PRN IV NAUSEA AND/OR VOMITING Last a dministered on 08/26/18at 10:29; Admin Dose 4 MG; Start 08/26/18 at 01:00 Sevelamer Carbonate (Renvela) 1,600 mg WITH MEALS PO ; Start 08/26/18 at 11:50 ELY DOYLE NP Aug 26, 2018 11:41
[2018-08-26] MEDS ORDERED: OXYCODONE/ACETAMINOPHEN (5/325) TAB PO PRN (12:00)
[2018-08-26] MEDS ORDERED: HYDROmorphONE 1 MG/ML SYG IV ONE (12:00)
--- NOTE | 2018-08-26 12:41 | CONS ---
Consult Date/Type/Reason Admit Date/Time Aug 23, 2018 at 05:55 Initial Consult Date 08/23/18 Type of Consultation: Urology Reason for Consultation Penoscrotal swelling Requesting Provider: VADIM CORRIGAN MD Date/Time of Note DATE: 08/26/18 TIME: 12:38 Subjective Patient is feeling better Objective Vitals Vital Signs Date Temp Pulse Resp B/P (MAP) Pulse Ox O2 O2 Flow FiO2 Time Delivery Rate 08/26/18 98.1 72 19 159/83 97 11:26 (108) 08/25/18 Room Air 03:24 Intake and Output 08/25/18 08/25/18 08/26/18 1515:00 23:00 07:00 IntakeIntake Total 240 ml 240 ml 650 ml OutputOutput Total 800 ml BalanceBalance 240 ml 240 ml -150 ml Exam Penoscrotal swelling has decreased. The size of the scrotum now is half of what it was. Results/Medications Result Diagram: 08/26/18 0630 08/26/18 0630 Results 24 hrs Laboratory Tests Test 08/25/18 14:01 08/25/18 17:19 08/25/18 21:56 08/26/18 02:02 Creatine Kinase 375 H Creatine Kinase Index 1.9 Creatinine Kinase MB 7.14 H (Mass) Troponin I 0.042 Bedside Glucose 123 189 149 Test 08/26/18 06:30 08/26/18 08:00 08/26/18 11:32 White Blood Count 7.3 Red Blood Count 3.10 L Hemoglobin 8.2 L Hematocrit 25.5 L Mean Corpuscular Volume 82.3 Mean Corpuscular 26.5 L Hemoglobin Mean Corpuscular 32.2 Hemoglobin Concent Red Cell Distribution 14.0 Width Platelet Count 235 Mean Platelet Volume 8.6 Immature Granulocytes % 0.400 Neutrophils % 57.9 Lymphocytes % 26.8 Monocytes % 9.7 Eosinophils % 4.8 Basophils % 0.4 Nucleated Red Blood 0.0 Cells % Immature Granulocytes # 0.030 Neutrophils # 4.3 Lymphocytes # 2.0 Monocytes # 0.7 Eosinophils # 0.4 Basophils # 0.0 Nucleated Red Blood 0.0 Cells # Prothrombin Time 13.6 Prothrombin Time Ratio 1.1 INR International 1.03 Normalized Ratio Sodium Level 142 Potassium Level 3.9 Chloride Level 117 H Carbon Dioxide Level 19 L Anion Gap 6 Blood Urea Nitrogen 44 H Creatinine 4.40 H Est Glomerular Filtrat 14 L Rate mL/min Glucose Level 102 Calcium Level 7.6 L Phosphorus Level 6.3 H Magnesium Level 1.7 Bedside Glucose 118 126 Home Meds Reported Medications Lactose-Free Food (Ensure High Protein) 237 Ml Liquid, 237 ML PO 08/23/18 Aspirin* (Aspirin* Chew) 81 Mg Tab.chew, 81 MG PO DAILY, TAB.CHEW 08/23/18 Insulin Glargine* (Lantus*) 100 Unit/Ml Soln, 15 UNIT SC QHS, #1 VIAL 08/23/18 Insulin Isophan/Regular (Humulin 70/30) 100 Units/Ml Susp, 3 UNIT SC AC BREAKFAST DINNER, EA 08/23/18 Methadone Hcl* (Methadone*) 10 Mg Tab, 40 MG PO, TAB 07/06/18 Sennosides* (Senna Lax*) 8.6 Mg Tablet, 2 TAB PO QHS, TAB 07/06/18 Zinc Sulfate* (Zinc Sulfate*) 220 Mg Cap, 220 MG PO DAILY, CAP 07/06/18 Carvedilol* (Carvedilol*) 25 Mg Tablet, 25 MG PO BID, #60 TAB HOLD IF SBP<110 OR HR <60 07/06/18 Multivitamin (Multivitamins) 1 Each Capsule, 1 EACH PO, CAP 07/06/18 Clonidine Hcl* (Catapres*) 0.3 Mg Tablet, 0.3 MG PO Q8 PRN for ELEVATED BLOOD PRESSURE, TAB FOR SBP>170 07/06/18 Ascorbic Acid (Vitamin C) 500 Mg Tab, 1000 MG PO BID, TAB 07/06/18 Amlodipine Besylate* (Norvasc*) 10 Mg Tablet, 10 MG PO BID, TAB 07/06/18 Docusate Sodium* (Colace*) 100 Mg Capsule, 200 MG PO QPM, #30 CAP 07/06/18 Docusate Sodium* (Colace*) 100 Mg Capsule, 200 MG PO QAM, #60 CAP 07/06/18 Hydralazine Hcl* (Hydralazine Hcl*) 50 Mg Tab, 100 MG PO Q8H, #120 TAB HOLD IF SBP<100 07/06/18 Glipizide* (Glipizide*) 5 Mg Tablet, 5 MG PO BID, TAB 07/05/18 Levetiracetam* (Keppra*) 500 Mg Tablet, 500 MG PO BID, TAB 07/05/18 Medications Current Medications Ascorbic Acid (Vitamin C) 1,000 mg BID PO Last administered on 08/26/18 09:38; Admin Dose 1,000 MG; Start 08/23/18 at 11:00 Hydralazine HCl (Apresoline) 100 mg Q8H PO Last administered on 08/26/18 11:42; Admin Dose 100 MG; Start 08/23/18 at 11:00 Levetiracetam (Keppra) 500 mg BID PO Last administered on 08/26/18 09:39; Admin Dose 500 MG; Start 08/23/18 at 11:00 Multivitamins Therapeutic (Theragran) 1 tab DAILY PO Last administered on 08/26/18 09:38; Admin Dose 1 TAB; Start 08/23/18 at 11:00 Clonidine (Catapres) 0.1 mg Q6H PRN PO sbp>160 Last administered on 08/24/18 13:30; Admin Dose 0.1 MG; Start 08/23/18 at 10:00 IV Flush (NS 3 ml) 3 ml PER PROTOCOL IV ; Start 08/23/18 at 10:00 Miscellaneous Information (Pending [facility] Order For Wound Care) This patient hugo... PRN PRN XX WOUND CARE; Start 08/23/18 at 10:30 Diagnostic Test (Pha) (Accu-Chek) 1 ea 02 XX Last administered on 08/26/18 02:14; Admin Dose 1 EA; Start 08/24/18 at 02:00 Insulin Aspart (Novolog Insulin Pen) NOVOLOG *MILD* ALGORITHM WITH MEALS BEDTIME SC Last administered on 08/23/18 17:30; Admin Dose 2 UNIT; Start 08/23/18 at 17:55 Zinc Sulfate (Zinc Sulfate) 220 mg DAILY PO Last administered on 08/26/18 09:37; Admin Dose 220 MG; Start 08/24/18 at 09:00; Stop 09/04/18 at 09:01 Quetiapine Fumarate (Seroquel) 50 mg HS PRN PO SLEEP Last administered on 08/26/18 02:07; Admin Dose 50 MG; Start 08/24/18 at 01:30 Furosemide (Lasix) 40 mg BID DIURETICS IV Last administered on 08/26/18 06:06; Admin Dose 40 MG; Start 08/24/18 at 08:30 Docusate Sodium (Colace) 200 mg BID PO Last administered on 08/26/18 09:39; Admin Dose 200 MG; Start 08/24/18 at 21:00 Insulin Glargine (Lantus) 15 units QHS SC Last administered on 08/25/18 22:01; Admin Dose 15 UNITS; Start 08/24/18 at 21:00 Senna (Senokot) 2 tab Q12 PO Last administered on 08/26/18 09:39; Admin Dose 2 TAB; Start 08/24/18 at 21:00 Psyllium Hydrophilic Mucilloid (Metamucil) 1 pkt BID PO Last administered on 08/25/18 21:52; Admin Dose 1 PKT; Start 08/24/18 at 09:30 Miscellaneous Information 1 ea NOTE XX ; Start 08/24/18 at 10:00 Glucose (Glutose) 15 gm Q15M PRN PO DECREASED GLUCOSE; Start 08/24/18 at 10:00 Glucose (Glutose) 22.5 gm Q15M PRN PO DECREASED GLUCOSE; Start 08/24/18 at 10:00 Dextrose (D50w Syringe) 25 ml Q15M PRN IV DECREASED GLUCOSE; Start 08/24/18 at 10:00 Dextrose (D50w Syringe) 50 ml Q15M PRN IV DECREASED GLUCOSE; Start 08/24/18 at 10:00 Glucagon (Glucagen) 1 mg Q15M PRN IM DECREASED GLUCOSE; Start 08/24/18 at 10:00 Glucose (Glutose) 15 gm Q15M PRN BUCCAL DECREASED GLUCOSE; Start 08/24/18 at 10:00 Doxazosin Mesylate (Cardura) 2 mg HS PO Last administered on 08/25/18 21:49; Admin Dose 2 MG; Start 08/25/18 at 21:00 Carvedilol (Coreg) 50 mg BID PO Last administered on 08/26/18 09:38; Admin Dose 50 MG; Start 08/24/18 at 21:00 Spironolactone (Aldactone) 25 mg DAILY@0600 PO Last administered on 08/26/18 06:05; Admin Dose 25 MG; Start 08/25/18 at 06:00 Hydralazine HCl (Apresoline) 10 mg Q4H PRN IV SBP>170 Last administered on 08/26/18at 00:46; Admin Dose 10 MG; Start 08/24/18 at 14:30 Nifedipine (Procardia Xl) 60 mg BID PO Last administered on 08/26/18at 09:39; Admin Dose 60 MG; Start 08/24/18 at 19:15 Rifaximin (Xifaxan) 550 mg BID PO Last administered on 08/26/18at 09:37; Admin Dose 550 MG; Start 08/25/18 at 21:00 Al Hydrox/Mg Hydrox/Simethicone (Mag-Al Plus) 30 ml Q6H PRN PO GASTROINTESTINAL UPSET; Start 08/25/18 at 23:00 Ondansetron HCl (Zofran Inj) 4 mg Q4H PRN IV NAUSEA AND/OR VOMITING Last administered on 08/26/18at 10:29; Admin Dose 4 MG; Start 08/26/18 at 01:00 Sevelamer Carbonate (Renvela) 1,600 mg WITH MEALS PO Last administered on 08/26/18at 11:42; Admin Dose 1,600 MG; Start 08/26/18 at 11:50 Oxycodone/ Acetaminophen (Percocet (5/ 325)) 1 tab Q4H PRN PO MODERATE PAIN LEVEL 4-6; Start 08/26/18 at 12:00 Oxycodone/ Acetaminophen (Percocet (5/ 325)) 2 tab Q4H PRN PO SEVERE PAIN LEVEL 7-10; Start 08/26/18 at 12:00 Assessment/Plan Hospital Course (Demo Recall) 52-year-old male has a history of advanced liver cirrhosis/ascites, diabetes, daily smoking, diabetic retinopathy, congestive heart failure, chronic obstructive pulmonary disease, chronic kidney disease, seizure disorders, left toe amputation and right below-knee amputation. He initially presented to [facility] with worsening bilateral scrotal edema with intractable pain. Patient was transferred to [facility] because of his insurance. He states that he was on hospice but now he wants to be full code. Patient did not have any chest pain, palpitation, nausea, vomiting, dizziness, loss of consciousness, headache, numbness, tingling, fever, chills or other c onstitutional symptoms. A urological consultation was requested because of the scrotal swelling and pain. CT scan of the abdomen and pelvis showed 1. Liver cirrhosis. Correlate with clinical history. Large amount of intra- abdominal/pelvic ascites. Generalized anasarca. 2. Diffuse thickening of the hirsch of the bladder, cannot exclude cystitis. 3. No gross evidence of bowel obstruction. Stool filled loops of large bowel suggestive of constipation. The appendix is within normal limits. 4. Mild atherosclerosis aorta. 5. Retroperitoneal sub centimeter lymph nodes, probably reactive. 6. No gross renal/ureteric calculi. No evidence of obstructive uropathy. 7. Large bilateral hydroceles and scrotal edema. On the examination the penoscrotal swelling has decreased remarkably. The size of the scrotum is half of what it was. Continue to elevate the scrotum on a towel all the time and diuresis. PEDRO BLANC MD Aug 26, 2018 12:41
--- NOTE | 2018-08-26 15:34 | PN ---
Date/Time of Note Date/Time of Note DATE: 08/26/18 TIME: 15:17 Assessment/Plan VTE Prophylaxis Risk score (from Ns)>0 risk: 5 SCD applied (from Ns): Yes Pharmacological prophylaxis: NA/contraindicated Pharm contraindication: liver dx Lines/Catheters IV [facility]ter [facility]from [facility]): [facility] Urinary Cath still in place: No Assessment/Plan Assessment/Plan Assessment: Advanced liver cirrhosis with ascites Nausea/vomitingnew onset Thickening of bladder on CT Constipation on imaging Reported history of hepatitis C, untreated Discuss diffuse scrotal edema with pain CARMELINA on CKD Congestive heart failure Hypertension Diabetes Left lower extremity ulcers Right BKA Seizure disorder Plan: Start Reglan 10 mg IV every 6 Start MiraLAX daily Check stool for H. pylori Hep C RNA is pending Continue current diuretic regimen Continue rifaximin , patient is refusing lactulose due to the risk for skin breakdown Recommend out-pt EGD Patient seen in collaboration with Dr. Morales Subjective: Patient is complaining of nausea and vomiting started last night. Patient is n ot tolerating the diet. Generalized abdominal pain on exam. CT of the abdomen shows thickening of the bladder. We will start the patient on Zofran [id number] and MiraLAX daily. Continue observation. Constitutional: alert, oriented Psych: no complaints Head: normocephalic Eyes: nl conjunctiva ENMT: nl external ears & nose Neck: supple Respiratory: clear to auscultation Cardiovascular: regular rate and rhythm Gastrointestinal: ascites, bowel sounds, distended, splenomegaly Genitourinary - Male: other (Scrotal edema) Result Diagram: 08/26/18 0630 08/26/18 0630 Results 24hrs Laboratory Tests Test 08/25/18 17:19 08/25/18 21:56 08/26/18 02:02 08/26/18 06:30 Bedside Glucose 123 189 149 White Blood Count 7.3 Red Blood Count 3.10 L Hemoglobin 8.2 L Hematocrit 25.5 L Mean Corpuscular Volume 82.3 Mean Corpuscular 26.5 L Hemoglobin Mean Corpuscular 32.2 Hemoglobin Concent Red Cell Distribution 14.0 Width Platelet Count 235 Mean Platelet Volume 8.6 Immature Granulocytes % 0.400 Neutrophils % 57.9 Lymphocytes % 26.8 Monocytes % 9.7 Eosinophils % 4.8 Basophils % 0.4 Nucleated Red Blood 0.0 Cells % Immature Granulocytes # 0.030 Neutrophils # 4.3 Lymphocytes # 2.0 Monocytes # 0.7 Eosinophils # 0.4 Basophils # 0.0 Nucleated Red Blood 0.0 Cells # Prothrombin Time 13.6 Prothrombin Time Ratio 1.1 INR International 1.03 Normalized Ratio Sodium Level 142 Potassium Level 3.9 Chloride Level 117 H Carbon Dioxide Level 19 L Anion Gap 6 Blood Urea Nitrogen 44 H Creatinine 4.40 H Est Glomerular Filtrat 14 L Rate mL/min Glucose Level 102 Calcium Level 7.6 L Phosphorus Level 6.3 H Magnesium Level 1.7 Test 08/26/18 08:00 08/26/18 11:32 Bedside Glucose 118 126 Exam/Review of Systems Exam Vitals Vital Signs Date Temp Pulse Resp B/P (MAP) Pulse Ox O2 O2 Flow FiO2 Time Delivery Rate 08/26/18 98.1 72 19 159/83 97 11:26 (108) 08/25/18 Room Air 03:24 Intake and Output 08/25/18 08/25/18 08/26/18 1515:00 23:00 07:00 IntakeIntake Total 240 ml 240 ml 650 ml OutputOutput Total 800 ml BalanceBalance 240 ml 240 ml -150 ml Results Results 24hrs Laboratory Tests Test 08/25/18 17:19 08/25/18 21:56 08/26/18 02:02 08/26/18 06:30 Bedside Glucose 123 189 149 White Blood Count 7.3 Red Blood Count 3.10 L Hemoglobin 8.2 L Hematocrit 25.5 L Mean Corpuscular Volume 82.3 Mean Corpuscular 26.5 L Hemoglobin Mean Corpuscular 32.2 Hemoglobin Concent Red Cell Distribution 14.0 Width Platelet Count 235 Mean Platelet Volume 8.6 Immature Granulocytes % 0.400 Neutrophils % 57.9 Lymphocytes % 26.8 Monocytes % 9.7 Eosinophils % 4.8 Basophils % 0.4 Nucleated Red Blood 0.0 Cells % Immature Granulocytes # 0.030 Neutrophils # 4.3 Lymphocytes # 2.0 Monocytes # 0.7 Eosinophils # 0.4 Basophils # 0.0 Nucleated Red Blood 0.0 Cells # Prothrombin Time 13.6 Prothrombin Time Ratio 1.1 INR International 1.03 Normalized Ratio Sodium Level 142 Potassium Level 3.9 Chloride Level 117 H Carbon Dioxide Level 19 L Anion Gap 6 Blood Urea Nitrogen 44 H Creatinine 4.40 H Est Glomerular Filtrat 14 L Rate mL/min Glucose Level 102 Calcium Level 7.6 L Phosphorus Level 6.3 H Magnesium Level 1.7 Test 08/26/18 08:00 08/26/18 11:32 Bedside Glucose 118 126 Medications Medication Current Medications Ascorbic Acid (Vitamin C) 1,000 mg BID PO Last administered on 08/26/18 09:38; Admin Dose 1,000 MG; Start 08/23/18 at 11:00 Hydralazine HCl (Apresoline) 100 mg Q8H PO Last administered on 08/26/18 11:42; Admin Dose 100 MG; Start 08/23/18 at 11:00 Levetiracetam (Keppra) 500 mg BID PO Last administered on 08/26/18 09:39; Admin Dose 500 MG; Start 08/23/18 at 11:00 Multivitamins Therapeutic (Theragran) 1 tab DAILY PO Last administered on 08/26/18 09:38; Admin Dose 1 TAB; Start 08/23/18 at 11:00 Clonidine (Catapres) 0.1 mg Q6H PRN PO sbp>160 Last administered on 08/24/18 13:30; Admin Dose 0.1 MG; Start 08/23/18 at 10:00 IV Flush (NS 3 ml) 3 ml PER PROTOCOL IV ; Start 08/23/18 at 10:00 Miscellaneous Information (Pending [facility] Order For Wound Care) This patient hugo... PRN PRN XX WOUND CARE; Start 08/23/18 at 10:30 Diagnostic Test (Pha) (Accu-Chek) 1 ea 02 XX Last administered on 08/26/18 02:14; Admin Dose 1 EA; Start 08/24/18 at 02:00 Insulin Aspart (Novolog Insulin Pen) NOVOLOG *MILD* ALGORITHM WITH MEALS BEDTIME SC Last administered on 08/23/18 17:30; Admin Dose 2 UNIT; Start 08/23/18 at 17:55 Zinc Sulfate (Zinc Sulfate) 220 mg DAILY PO Last administered on 08/26/18 09:37; Admin Dose 220 MG; Start 08/24/18 at 09:00; Stop 09/04/18 at 09:01 Quetiapine Fumarate (Seroquel) 50 mg HS PRN PO SLEEP Last administered on 7/5/19at 02:07; Admin Dose 50 MG; Start 08/24/18 at 01:30 Furosemide (Lasix) 40 mg BID DIURETICS IV Last administered on 08/26/18 06:06; Admin Dose 40 MG; Start 08/24/18 at 08:30 Docusate Sodium (Colace) 200 mg BID PO Last administered on 08/26/18 09:39; Admin Dose 200 MG; Start 08/24/18 at 21:00 Insulin Glargine (Lantus) 15 units QHS SC Last administered on 08/25/18 22:01; Admin Dose 15 UNITS; Start 08/24/18 at 21:00 Senna (Senokot) 2 tab Q12 PO Last administered on 08/26/18 09:39; Admin Dose 2 TAB; Start 08/24/18 at 21:00 Psyllium Hydrophilic Mucilloid (Metamucil) 1 pkt BID PO Last administered on 08/25/18 21:52; Admin Dose 1 PKT; Start 08/24/18 at 09:30 Miscellaneous Information 1 ea NOTE XX ; Start 08/24/18 at 10:00 Glucose (Glutose) 15 gm Q15M PRN PO DECREASED GLUCOSE; Start 08/24/18 at 10:00 Glucose (Glutose) 22.5 gm Q15M PRN PO DECREASED GLUCOSE; Start 08/24/18 at 10:00 Dextrose (D50w Syringe) 25 ml Q15M PRN IV DECREASED GLUCOSE; Start 08/24/18 at 10:00 Dextrose (D50w Syringe) 50 ml Q15M PRN IV DECREASED GLUCOSE; Start 08/24/18 at 10:00 Glucagon (Glucagen) 1 mg Q15M PRN IM DECREASED GLUCOSE; Start 08/24/18 at 10:00 Glucose (Glutose) 15 gm Q15M PRN BUCCAL DECREASED GLUCOSE; Start 08/24/18 at 10:00 Doxazosin Mesylate (Cardura) 2 mg HS PO Last administered on 08/25/18at 21:49; Admin Dose 2 MG; Start 08/25/18 at 21:00 Carvedilol (Coreg) 50 mg BID PO Last administered on 08/26/18 09:38; Admin Dose 50 MG; Start 08/24/18 at 21:00 Spironolactone (Aldactone) 25 mg DAILY@0600 PO Last administered on 08/26/18at 06:05; Admin Dose 25 MG; Start 08/25/18 at 06:00 Hydralazine HCl (Apresoline) 10 mg Q4H PRN IV SBP>170 Last administered on 08/26/18at 00:46; Admin Dose 10 MG; Start 08/24/18 at 14:30 Nifedipine (Procardia Xl) 60 mg BID PO Last administered on 08/26/18at 09:39; Admin Dose 60 MG; Start 08/24/18 at 19:15 Rifaximin (Xifaxan) 550 mg BID PO Last administered on 08/26/18at 09:37; Admin Dose 550 MG; Start 08/25/18 at 21:00 Al Hydrox/Mg Hydrox/Simethicone (Mag-Al Plus) 30 ml Q6H PRN PO GASTROINTESTINAL UPSET; Start 08/25/18 at 23:00 Ondansetron HCl (Zofran Inj) 4 mg Q4H PRN IV NAUSEA AND/OR VOMITING Last administered on 08/26/18at 10:29; Admin Dose 4 MG; Start 08/26/18 at 01:00 Sevelamer Carbonate (Renvela) 1,600 mg WITH MEALS PO Last administered on 08/26/18at 11:42; Admin Dose 1,600 MG; Start 08/26/18 at 11:50 Oxycodone/ Acetaminophen (Percocet (5/ 325)) 1 tab Q4H PRN PO MODERATE PAIN LEVEL 4-6; Start 08/26/18 at 12:00 Oxycodone/ Acetaminophen (Percocet (5/ 325)) 2 tab Q4H PRN PO SEVERE PAIN LEVEL 7-10; Start 08/26/18 at 12:00 ANTONIETA CARABALLO NP Aug 26, 2018 15:27
[2018-08-26] MEDS: ONDANSETRON 4 MG INJ IV SCH ×2 (15:43→21:19)
[2018-08-26] MEDS: OXYCODONE/ACETAMINOPHEN (5/325) TAB PO PRN ×3 (15:44→23:53)
[2018-08-26] MEDS: DOXAZOSIN 2 MG TAB PO SCH (21:21)
[2018-08-26] MEDS: INSULIN GLARGINE [LANTus] (100 UNITS/ML) SYG SC SCH (21:33)
[2018-08-27] VITALS (8 sets, daily range): BP systolic 138–189; BP diastolic 66–93; PULSE 68–74; RESP 16–19
[2018-08-27] MEDS: ACCU-CHEK XX SCH (02:22)
[2018-08-27] MEDS: ONDANSETRON 4 MG INJ IV SCH ×4 (03:39→21:59)
[2018-08-27] MEDS: OXYCODONE/ACETAMINOPHEN (5/325) TAB PO PRN ×5 (03:40→20:16)
[2018-08-27] MEDS: SPIRONOLACTONE 25 MG TAB PO SCH (05:43)
[2018-08-27] MEDS: FUROSEMIDE 40 MG INJ IV SCH ×2 (05:44→17:03)
[2018-08-27] MEDS: INSULIN ASPART [NOVOLOG] 3 ML PEN SC SCH ×4 (07:51→21:00)
[2018-08-27] MEDS: POLYETHYLENE GLYCOL 17 GM PACKET PO SCH (08:13)
[2018-08-27] MEDS: SEVELAMER CARBONATE 800 MG TABLET PO SCH ×3 (08:16→17:02)
[2018-08-27] MEDS: MULTIVITAMINS THERAPEUTIC TAB PO SCH (08:17)
[2018-08-27] MEDS: ZINC SULFATE 220 MG CAP PO SCH (08:17)
[2018-08-27] MEDS: DOCUSATE SODIUM 100 MG CAP PO SCH (08:17)
[2018-08-27] MEDS: ASCORBIC ACID 500 MG TAB PO SCH ×2 (08:17→22:03)
[2018-08-27] MEDS: RIFAXIMIN 550 MG TAB PO SCH ×2 (08:17→22:02)
[2018-08-27] MEDS: LEVETIRACETAM 500 MG TAB PO SCH ×2 (08:17→22:02)
[2018-08-27] MEDS: SENNA TAB PO SCH ×2 (08:17→22:02)
[2018-08-27] MEDS: NIFEdipine (XL) 30 MG TAB PO SCH ×2 (08:18→22:01)
[2018-08-27] MEDS: PSYLLIUM 28% PACKET PO SCH ×2 (08:18→22:02)
--- NOTE | 2018-08-27 08:50 | PN ---
DATE: 08/27/2018 SUBJECTIVE: The patient is stable. No events overnight. The patient states urinary output has been adequate. OBJECTIVE: VITAL SIGNS: Blood pressure is 160/83, pulse 72, respiration 17, temperature 98.3. HEENT: Head is normocephalic. NECK: Supple. HEART: Regular rate. LUNGS: Show diminished breath sounds at the base. ABDOMEN: Soft, nontender to palpation without rebound or guarding. EXTREMITIES: Negative for clubbing, cyanosis, no edema. DERMATOLOGIC: No rashes. MUSCULOSKELETAL: No joint effusions. NEUROLOGIC: No change in exam. : The patient's scrotal edema is improving. MEDICATIONS: The patient's medications have been reviewed. LABORATORY DATA: Has been reviewed. IMAGING: Images have been reviewed. ASSESSMENT AND PLAN: 1. Nonoliguric acute kidney injury on top of chronic kidney disease stage IV with previous baseline creatine around 3.5 mg/dL. Etiology of acute kidney injury may be secondary to hemodynamics versus p rogression of chronic kidney disease. The patient's renal function appears to be stabilizing around a creatinine of 4.2 to 4.5 mg/dL. The patient does not wish to be initiated on dialysis at this time . The patient has no overt uremic symptoms. The patient continues to make adequate urinary output o n diuretics. Will continue to monitor closely. 2. Volume overload, clinically improving. Continue diuretic regimen, monitor renal function, electr olytes closely. 3. Acute heart failure. The patient's 2D echo shows diastolic dysfunction. Continue current diuret ic regimen. 4. Metabolic acidosis secondary to acute kidney injury. Continue to monitor. Consider bicarbonate therapy. 5. Cirrhosis, decompensated. The patient is status post paracentesis. Continue medical management . Continue diuretic therapy. 6. Scrotal edema, improving. Etiology is likely due to volume overload from advanced CKD, cirrhosis . Continue to elevate scrotum. 7. Hypertension. Continue blood pressure regimen. 8. History of right below knee amputation. 9. Seizure disorder. Continue Keppra. Dictated By: BON LOPEZ/NTS Conf#: [id number] DID#: [id number] CC: VADIM CORRIGAN MD; PEDRO BLANC MD;*EndCC*
--- NOTE | 2018-08-27 10:06 | CONS ---
Consult Date/Type/Reason Admit Date/Time Aug 23, 2018 at 05:55 Initial Consult Date 08/23/18 Type of Consultation: Urology Reason for Consultation Scrotal swelling Requesting Provider: VADIM CORRIGAN MD Date/Time of Note DATE: 08/27/18 TIME: 10:01 Subjective Patient is feeling better Objective Vitals Vital Signs Date Temp Pulse Resp B/P (MAP) Pulse Ox O2 O2 Flow FiO2 Time Delivery Rate 08/27/18 98.3 72 17 160/83 95 07:42 (108) 08/25/18 Room Air 03:24 Intake and Output 08/26/18 08/26/18 08/27/18 1515:00 23:00 07:00 IntakeIntake Total 240 ml 360 ml 750 ml BalanceBalance 240 ml 360 ml 750 ml Exam Scrotal swelling is less. Results/Medications Result Diagram: 08/26/18 0630 08/27/18 0606 Results 24 hrs Laboratory Tests Test 08/26/18 11:32 08/26/18 17:22 08/26/18 21:14 08/27/18 02:01 Bedside Glucose 126 134 201 120 Test 08/27/18 06:06 08/27/18 07:49 Sodium Level 142 Potassium Level 3.8 Chloride Level 116 H Carbon Dioxide Level 21 Anion Gap 5 Blood Urea Nitrogen 45 H Creatinine 4.29 H Est Glomerular Filtrat 15 L Rate mL/min Glucose Level 41 #*L Calcium Level 7.7 L Bedside Glucose 100 Home Meds Reported Medications Lactose-Free Food (Ensure High Protein) 237 Ml Liquid, 237 ML PO 08/23/18 Aspirin* (Aspirin* Chew) 81 Mg Tab.chew, 81 MG PO DAILY, TAB.CHEW 08/23/18 Insulin Glargine* (Lantus*) 100 Unit/Ml Soln, 15 UNIT SC QHS, #1 VIAL 08/23/18 Insulin Isophan/Regular (Humulin 70/30) 100 Units/Ml Susp, 3 UNIT SC AC BREAKFAST DINNER, EA 08/23/18 Methadone Hcl* (Methadone*) 10 Mg Tab, 40 MG PO, TAB 07/06/18 Sennosides* (Senna Lax*) 8.6 Mg Tablet, 2 TAB PO QHS, TAB 07/06/18 Zinc Sulfate* (Zinc Sulfate*) 220 Mg Cap, 220 MG PO DAILY, CAP 07/06/18 Carvedilol* (Carvedilol*) 25 Mg Tablet, 25 MG PO BID, #60 TAB HOLD IF SBP<110 OR HR <60 07/06/18 Multivitamin (Multivitamins) 1 Each Capsule, 1 EACH PO, CAP 07/06/18 Clonidine Hcl* (Catapres*) 0.3 Mg Tablet, 0.3 MG PO Q8 PRN for ELEVATED BLOOD PRESSURE, TAB FOR SBP>170 07/06/18 Ascorbic Acid (Vitamin C) 500 Mg Tab, 1000 MG PO BID, TAB 07/06/18 Amlodipine Besylate* (Norvasc*) 10 Mg Tablet, 10 MG PO BID, TAB 07/06/18 Docusate Sodium* (Colace*) 100 Mg Capsule, 200 MG PO QPM, #30 CAP 07/06/18 Docusate Sodium* (Colace*) 100 Mg Capsule, 200 MG PO QAM, #60 CAP 07/06/18 Hydralazine Hcl* (Hydralazine Hcl*) 50 Mg Tab, 100 MG PO Q8H, #120 TAB HOLD IF SBP<100 07/06/18 Glipizide* (Glipizide*) 5 Mg Tablet, 5 MG PO BID, TAB 07/05/18 Levetiracetam* (Keppra*) 500 Mg Tablet, 500 MG PO BID, TAB 07/05/18 Medications Current Medications Ascorbic Acid (Vitamin C) 1,000 mg BID PO Last administered on 08/27/18 08:17; Admin Dose 1,000 MG; Start 08/23/18 at 11:00 Hydralazine HCl (Apresoline) 100 mg Q8H PO Last administered on 08/27/18at 03:39; Admin Dose 100 MG; Start 08/23/18 at 11:00 Levetiracetam (Keppra) 500 mg BID PO Last administered on 08/27/18 08:17; Admin Dose 500 MG; Start 08/23/18 at 11:00 Multivitamins Therapeutic (Theragran) 1 tab DAILY PO Last administered on 08/27/18at 08:17; Admin Dose 1 TAB; Start 08/23/18 at 11:00 Clonidine (Catapres) 0.1 mg Q6H PRN PO sbp>160 Last administered on 08/24/18at 13:30; Admin Dose 0.1 MG; Start 08/23/18 at 10:00 IV Flush (NS 3 ml) 3 ml PER PROTOCOL IV ; Start 08/23/18 at 10:00 Miscellaneous Information (Pending [facility] Order For Wound Care) This patient hugo... PRN PRN XX WOUND CARE; Start 08/23/18 at 10:30 Diagnostic Test (Pha) (Accu-Chek) 1 ea 02 XX Last administered on 08/27/18at 02:22; Admin Dose 1 EA; Start 08/24/18 at 02:00 Insulin Aspart (Novolog Insulin Pen) NOVOLOG *MILD* ALGORITHM WITH MEALS BEDTIME SC Last administered on 08/23/18 17:30; Admin Dose 2 UNIT; Start 08/23/18 at 17:55 Zinc Sulfate (Zinc Sulfate) 220 mg DAILY PO Last administered on 08/27/18 08:17; Admin Dose 220 MG; Start 08/24/18 at 09:00; Stop 09/04/18 at 09:01 Quetiapine Fumarate (Seroquel) 50 mg HS PRN PO SLEEP Last administered on 08/26/18 02:07; Admin Dose 50 MG; Start 08/24/18 at 01:30 Furosemide (Lasix) 40 mg BID DIURETICS IV Last administered on 08/27/18 05:44; Admin Dose 40 MG; Start 08/24/18 at 08:30 Docusate Sodium (Colace) 200 mg BID PO Last administered on 08/27/18 08:17; Admin Dose 200 MG; Start 08/24/18 at 21:00 Insulin Glargine (Lantus) 15 units QHS SC Last administered on 08/26/18at 21:33; Admin Dose 15 UNITS; Start 08/24/18 at 21:00 Senna (Senokot) 2 tab Q12 PO Last administered on 08/27/18 08:17; Admin Dose 2 TAB; Start 08/24/18 at 21:00 Psyllium Hydrophilic Mucilloid (Metamucil) 1 pkt BID PO Last administered on 08/27/18 08:18; Admin Dose 1 PKT; Start 08/24/18 at 09:30 Miscellaneous Information 1 ea NOTE XX ; Start 08/24/18 at 10:00 Glucose (Glutose) 15 gm Q15M PRN PO DECREASED GLUCOSE; Start 08/24/18 at 10:00 Glucose (Glutose) 22.5 gm Q15M PRN PO DECREASED GLUCOSE; Start 08/24/18 at 10:00 Dextrose (D50w Syringe) 25 ml Q15M PRN IV DECREASED GLUCOSE; Start 08/24/18 at 10:00 Dextrose (D50w Syringe) 50 ml Q15M PRN IV DECREASED GLUCOSE; Start 08/24/18 at 10:00 Glucagon (Glucagen) 1 mg Q15M PRN IM DECREASED GLUCOSE; Start 08/24/18 at 10:00 Glucose (Glutose) 15 gm Q15M PRN BUCCAL DECREASED GLUCOSE; Start 08/24/18 at 10:00 Doxazosin Mesylate (Cardura) 2 mg HS PO Last administered on 08/26/18at 21:21; Admin Dose 2 MG; Start 08/25/18 at 21:00 Carvedilol (Coreg) 50 mg BID PO Last administered on 08/27/18at 08:18; Admin Dose 50 MG; Start 08/24/18 at 21:00 Spironolactone (Aldactone) 25 mg DAILY@0600 PO Last administered on 08/27/18at 05:43; Admin Dose 25 MG; Start 08/25/18 at 06:00 Hydralazine HCl (Apresoline) 10 mg Q4H PRN IV SBP>170 Last administered on 08/26/18at 00:46; Admin Dose 10 MG; Start 08/24/18 at 14:30 Nifedipine (Procardia Xl) 60 mg BID PO Last administered on 08/27/18at 08:18; Admin Dose 60 MG; Start 08/24/18 at 19:15 Rifaximin (Xifaxan) 550 mg BID PO Last administered on 08/27/18 08:17; Admin Dose 550 MG; Start 08/25/18 at 21:00 Al Hydrox/Mg Hydrox/Simethicone (Mag-Al Plus) 30 ml Q6H PRN PO GASTROINTESTINAL UPSET; Start 08/25/18 at 23:00 Sevelamer Carbonate (Renvela) 1,600 mg WITH MEALS PO Last administered on 08/27/18at 08:16; Admin Dose 1,600 MG; Start 08/26/18 at 11:50 Oxycodone/ Acetaminophen (Percocet (5/ 325)) 1 tab Q4H PRN PO MODERATE PAIN LEVEL 4-6; Start 08/26/18 at 12:00 Oxycodone/ Acetaminophen (Percocet (5/ 325)) 2 tab Q4H PRN PO SEVERE PAIN LEVEL 7-10 Last administered on 08/27/18at 08:15; Admin Dose 2 TAB; Start 08/26/18 at 12:00 Polyethylene Glycol (Miralax) 17 gm DAILY PO Last administered on 08/27/18at 08:13; Admin Dose 17 GM; Start 08/27/18 at 09:00 Ondansetron HCl (Zofran Inj) 4 mg Q6H IV Last administered on 08/27/18at 09:07; Admin Dose 4 MG; Start 08/26/18 at 15:30 Assessment/Plan Hospital Course (Demo Recall) 52-year-old male has a history of advanced liver cirrhosis/ascites, diabetes, daily smoking, diabetic retinopathy, congestive heart failure, chronic obstructive pulmonary disease, chronic kidney disease, seizure disorders, left toe amputation and right below-knee amputation. He initially presented to [facility] with worsening bilateral scrotal edema with intractable pain. Patient was transferred to [facility] because of his insurance. He states that he was on hospice but now he wants to be full code. Patient did not have any chest pain, palpitation, nausea, vomiting, dizziness, loss of consciousness, headache, numbness, tingling, fever, chills or other constitutional symptoms. A urological consultation was requested because of the scrotal swelling and pain. CT scan of the abdomen and pelvis showed 1. Liver cirrhosis. Correlate with clinical history. Large amount of intra- abdominal/pelvic ascites. Generalized anasarca. 2. Diffuse thickening of the hirsch of the bladder, cannot exclude cystitis. 3. No gross evidence of bowel obstruction. Stool filled loops of large bowel suggestive of constipation. The appendix is within normal limits. 4. Mild atherosclerosis aorta. 5. Retroperitoneal sub centimeter lymph nodes, probably reactive. 6. No gross renal/ureteric calculi. No evidence of obstructive uropathy. 7. Large bilateral hydroceles and scrotal edema. The penoscrotal edema and swelling has decreased but he still have some. He did not have the towel to elevate the scrotum. I rolled the towel and gave it to him to elevate the scrotum all the time. PEDRO BLANC MD Aug 27, 2018 10:06
--- NOTE | 2018-08-27 12:47 | CONS ---
Consult Date/Type/Reason Admit Date/Time Aug 23, 2018 at 05:55 Initial Consult Date 08/25/18 Type of Consultation: Urology Requesting Provider: VADIM CORRIGAN MD Date/Time of Note DATE: 08/27/18 TIME: 12:44 Subjective NO acute events - pt comfortable - no CP now - better fluid status. ROS: No fever, no chills, no nausea, no vomiting, no diarrhea/constipation No recent weight changes No chest pain, no PND, no orthopnea - mild SOB No dizziness, blurred vision No thirst, no heat or cold intolerance Objective Vitals Vital Signs Date Temp Pulse Resp B/P (MAP) Pulse Ox O2 O2 Flow FiO2 Time Delivery Rate 08/27/18 98.0 74 17 185/89 94 11:29 (121) 08/25/18 Room Air 03:24 Intake and Output 08/26/18 08/26/18 08/27/18 1515:00 23:00 07:00 IntakeIntake Total 240 ml 360 ml 750 ml BalanceBalance 240 ml 360 ml 750 ml Exam General: WN/WD/NAD, AOx 3 HEENT: Unicetric/atraumatic/EOMI (follow commands) NECK: JVD elevated, no thyromegaly Lymph: no lymphadenopathy HEART: regular with no S3, II/ systolic murmur at apex LUNGS: Coarse sounds ABD: soft, NT, ND, +BS : scrotal edema Neuro: non focal SKIN: chronic changes EXT: 1+ edema Results/Medications Result Diagram: 08/26/18 0630 08/27/18 0606 Results 24 hrs Laboratory Tests Test 08/26/18 17:22 08/26/18 21:14 08/27/18 02:01 08/27/18 06:06 Bedside Glucose 134 201 120 Sodium Level 142 Potassium Level 3.8 Chloride Level 116 H Carbon Dioxide Level 21 Anion Gap 5 Blood Urea Nitrogen 45 H Creatinine 4.29 H Est Glomerular Filtrat 15 L Rate mL/min Glucose Level 41 #*L Calcium Level 7.7 L Test 08/27/18 07:49 08/27/18 11:58 Bedside Glucose 100 110 Home Meds Reported Medications Lactose-Free Food (Ensure High Protein) 237 Ml Liquid, 237 ML PO 08/23/18 Aspirin* (Aspirin* Chew) 81 Mg Tab.chew, 81 MG PO DAILY, TAB.CHEW 08/23/18 Insulin Glargine* (Lantus*) 100 Unit/Ml Soln, 15 UNIT SC QHS, #1 VIAL 08/23/18 Insulin Isophan/Regular (Humulin 70/30) 100 Units/Ml Susp, 3 UNIT SC AC BREAKFAST DINNER, EA 08/23/18 Methadone Hcl* (Methadone*) 10 Mg Tab, 40 MG PO, TAB 07/06/18 Sennosides* (Senna Lax*) 8.6 Mg Tablet, 2 TAB PO QHS, TAB 07/06/18 Zinc Sulfate* (Zinc Sulfate*) 220 Mg Cap, 220 MG PO DAILY, CAP 07/06/18 Carvedilol* (Carvedilol*) 25 Mg Tablet, 25 MG PO BID, #60 TAB HOLD IF SBP<110 OR HR <60 07/06/18 Multivitamin (Multivitamins) 1 Each Capsule, 1 EACH PO, CAP 07/06/18 Clonidine Hcl* (Catapres*) 0.3 Mg Tablet, 0.3 MG PO Q8 PRN for ELEVATED BLOOD PRESSURE, TAB FOR SBP>170 07/06/18 Ascorbic Acid (Vitamin C) 500 Mg Tab, 1000 MG PO BID, TAB 07/06/18 Amlodipine Besylate* (Norvasc*) 10 Mg Tablet, 10 MG PO BID, TAB 07/06/18 Docusate Sodium* (Colace*) 100 Mg Capsule, 200 MG PO QPM, #30 CAP 07/06/18 Docusate Sodium* (Colace*) 100 Mg Capsule, 200 MG PO QAM, #60 CAP 07/06/18 Hydralazine Hcl* (Hydralazine Hcl*) 50 Mg Tab, 100 MG PO Q8H, #120 TAB HOLD IF SBP<100 07/06/18 Glipizide* (Glipizide*) 5 Mg Tablet, 5 MG PO BID, TAB 07/05/18 Levetiracetam* (Keppra*) 500 Mg Tablet, 500 MG PO BID, TAB 07/05/18 Medications Current Medications Ascorbic Acid (Vitamin C) 1,000 mg BID PO Last administered on 08/27/18at 08:17; Admin Dose 1,000 MG; Start 08/23/18 at 11:00 Hydralazine HCl (Apresoline) 100 mg Q8H PO Last administered on 08/27/18 11:55; Admin Dose 100 MG; Start 08/23/18 at 11:00 Levetiracetam (Keppra) 500 mg BID PO Last administered on 08/27/18 08:17; Admin Dose 500 MG; Start 08/23/18 at 11:00 Multivitamins Therapeutic (Theragran) 1 tab DAILY PO Last administered on 08/27/18 08:17; Admin Dose 1 TAB; Start 08/23/18 at 11:00 Clonidine (Catapres) 0.1 mg Q6H PRN PO sbp>160 Last administered on 08/27/18 11:55; Admin Dose 0.1 MG; Start 08/23/18 at 10:00 IV Flush (NS 3 ml) 3 ml PER PROTOCOL IV ; Start 08/23/18 at 10:00 [facility]isc[facility] This patient hugo... PRN PRN XX WOUND CARE; Start 08/23/18 at 10:30 Diagnostic Test (Pha) (Accu-Chek) 1 ea 02 XX Last administered on 08/27/18 02:22; Admin Dose 1 EA; Start 08/24/18 at 02:00 Insulin Aspart (Novolog Insulin Pen) NOVOLOG *MILD* ALGORITHM WITH MEALS BEDTIME SC Last administered on 08/23/18 17:30; Admin Dose 2 UNIT; Start at 17:55 Zinc Sulfate (Zinc Sulfate) 220 mg DAILY PO Last administered on 08/27/18 08:17; Admin Dose 220 MG; Start 08/24/18 at 09:00; Stop 09/04/18 at 09:01 Quetiapine Fumarate (Seroquel) 50 mg HS PRN PO SLEEP Last administered on 08/26/18 02:07; Admin Dose 50 MG; Start 08/24/18 at 01:30 Furosemide (Lasix) 40 mg BID DIURETICS IV Last administered on 08/27/18 05:44; Admin Dose 40 MG; Start 08/24/18 at 08:30 Docusate Sodium (Colace) 200 mg BID PO Last administered on 08/27/18 08:17; Admin Dose 200 MG; Start 08/24/18 at 21:00 Insulin Glargine (Lantus) 15 units QHS SC Last administered on 08/26/18at 21:33; Admin Dose 15 UNITS; Start 08/24/18 at 21:00 Senna (Senokot) 2 tab Q12 PO Last administered on 08/27/18at 08:17; Admin Dose 2 TAB; Start 08/24/18 at 21:00 Psyllium Hydrophilic Mucilloid (Metamucil) 1 pkt BID PO Last administered on 08/27/18at 08:18; Admin Dose 1 PKT; Start 08/24/18 at 09:30 Miscellaneous Information 1 ea NOTE XX ; Start 08/24/18 at 10:00 Glucose (Glutose) 15 gm Q15M PRN PO DECREASED GLUCOSE; Start 08/24/18 at 10:00 Glucose (Glutose) 22.5 gm Q15M PRN PO DECREASED GLUCOSE; Start 08/24/18 at 10:00 Dextrose (D50w Syringe) 25 ml Q15M PRN IV DECREASED GLUCOSE; Start 08/24/18 at 10:00 Dextrose (D50w Syringe) 50 ml Q15M PRN IV DECREASED GLUCOSE; Start 08/24/18 at 10:00 Glucagon (Glucagen) 1 mg Q15M PRN IM DECREASED GLUCOSE; Start 08/24/18 at 10:00 Glucose (Glutose) 15 gm Q15M PRN BUCCAL DECREASED GLUCOSE; Start 08/24/18 at 10:00 Doxazosin Mesylate (Cardura) 2 mg HS PO Last administered on 08/26/18at 21:21; Admin Dose 2 MG; Start 08/25/18 at 21:00 Carvedilol (Coreg) 50 mg BID PO Last administered on 08/27/18at 08:18; Admin Dose 50 MG; Start 08/24/18 at 21:00 Spironolactone (Aldactone) 25 mg DAILY@0600 PO Last administered on 08/27/18at 05:43; Admin Dose 25 MG; Start 08/25/18 at 06:00 Hydralazine HCl (Apresoline) 10 mg Q4H PRN IV SBP>170 Last administered on 08/26/18at 00:46; Admin Dose 10 MG; Start 08/24/18 at 14:30 Nifedipine (Procardia Xl) 60 mg BID PO Last administered on 08/27/18at 08:18; Admin Dose 60 MG; Start 08/24/18 at 19:15 Rifaximin (Xifaxan) 550 mg BID PO Last administered on 08/27/18at 08:17; Admin Dose 550 MG; Start 08/25/18 at 21:00 Al Hydrox/Mg Hydrox/Simethicone (Mag-Al Plus) 30 ml Q6H PRN PO GASTROINTESTINAL UPSET; Start 08/25/18 at 23:00 Sevelamer Carbonate (Renvela) 1,600 mg WITH MEALS PO Last administered on 08/27/18at 11:55; Admin Dose 1,600 MG; Start 08/26/18 at 11:50 Oxycodone/ Acetaminophen (Percocet (5/ 325)) 1 tab Q4H PRN PO MODERATE PAIN LEVEL 4-6; Start 08/26/18 at 12:00 Oxycodone/ Acetaminophen (Percocet (5/ 325)) 2 tab Q4H PRN PO SEVERE PAIN LEVEL 7-10 Last administered on 08/27/18at 11:56; Admin Dose 2 TAB; Start 08/26/18 at 12:00 Polyethylene Glycol (Miralax) 17 gm DAILY PO Last administered on 08/27/18at 08:13; Admin Dose 17 GM; Start 08/27/18 at 09:00 Ondansetron HCl (Zofran Inj) 4 mg Q6H IV Last administered on 08/27/18at 09:07; Admin Dose 4 MG; Start 08/26/18 at 15:30 Assessment/Plan Hospital Course (Demo Recall) 1. Congestive heart failure, question diastolic versus systolic, likely acute on chronic - con't diuresis as tolerated. Better now. Con't to improve. 2. Premature ventricular contractions by telemetry, rule out acute coronary syndrome - stable on tele now. Now in sinus. NO sustained ectopy on tele. 3. Hypertension, severe, uncontrolled - BP better - con't to adjust Rx. Well controlled. 4. Renal failure - acute on chronic - renal team follows. Renal team follows. HIGH Cr - reanl follows. 5. Liver cirrhosis. 6. Ascites, status post paracentesis- better now. Con't to keep euvolemic. 7. Anemia - no active bleedig, blood Tx if needed. 8. Borderline urinary tract infection - on antibx. 9. Scrotal edema. 10. Hydrocele. LOC YODER MD Aug 27, 2018 12:47
--- NOTE | 2018-08-27 14:13 | PN ---
Date/Time of Note Date/Time of Note DATE: 08/27/18 TIME: 14:08 Assessment/Plan VTE Prophylaxis Risk score (from Ns)>0 risk: 2 SCD applied (from Ns): No SCD contraindicated: other (scds) Pharmacological prophylaxis: other (scds) Lines/Catheters IV [facility] Type [facility]from [facility] Saline Lock Urinary Cath still in place: No Assessment/Plan Hospital Course Assessment: Advanced liver cirrhosis with ascites Nausea/vomitingnew onset Thickening of bladder on CT Constipation on imaging Reported history of hepatitis C, untreated Diffuse scrotal edema with pain CARMELINA on CKD Congestive heart failure Hypertension Diabetes Left lower extremity ulcers Right BKA Seizure disorder Plan: Reglan 10 mg IV every 6 hr/MiraLAX daily Check stool for H. pylori Hep C RNA is pending Continue current diuretic regimen Continue rifaximin, patient is refusing lactulose due to the risk for skin breakdown Recommend out-pt EGD Patient seen in collaboration with Dr. Morales Subjective: Patient states he feels better today, no planes of nausea and vomiting with current regimen. Patient states he has not had a bowel movement. Continue MiraLAX. Overnight events Continue close observation. Patient to follow-up with GI after discharge Constitutional: alert, oriented Psych: no complaints Head: normocephalic Eyes: nl conjunctiva ENMT: nl external ears & nose Neck: supple Respiratory: clear to auscultation Cardiovascular: regular rate and rhythm Gastrointestinal: ascites, bowel sounds, distended, splenomegaly Genitourinary - Male: other (Scrotal edema) Result Diagram: 08/26/18 0630 08/27/18 0606 Results 24hrs Laboratory Tests Test 08/26/18 17:22 08/26/18 21:14 08/27/18 02:01 08/27/18 06:06 Bedside Glucose 134 201 120 Sodium Level 142 Potassium Level 3.8 Chloride Level 116 H Carbon Dioxide Level 21 Anion Gap 5 Blood Urea Nitrogen 45 H Creatinine 4.29 H Est Glomerular Filtrat 15 L Rate mL/min Glucose Level 41 #*L Calcium Level 7.7 L Test 08/27/18 07:49 08/27/18 11:58 Bedside Glucose 100 110 Exam/Review of Systems Exam Vitals Vital Signs Date Temp Pulse Resp B/P (MAP) Pulse Ox O2 O2 Flow FiO2 Time Delivery Rate 08/27/18 98.0 74 17 185/89 94 11:29 (121) 08/25/18 Room Air 03:24 Intake and Output 08/26/18 08/26/18 08/27/18 1515:00 23:00 07:00 IntakeIntake Total 240 ml 360 ml 750 ml BalanceBalance 240 ml 360 ml 750 ml Results Results 24hrs Laboratory Tests Test 08/26/18 17:22 08/26/18 21:14 08/27/18 02:01 08/27/18 06:06 Bedside Glucose 134 201 120 Sodium Level 142 Potassium Level 3.8 Chloride Level 116 H Carbon Dioxide Level 21 Anion Gap 5 Blood Urea Nitrogen 45 H Creatinine 4.29 H Est Glomerular Filtrat 15 L Rate mL/min Glucose Level 41 #*L Calcium Level 7.7 L Test 08/27/18 07:49 08/27/18 11:58 Bedside Glucose 100 110 Medications Medication Current Medications Ascorbic Acid (Vitamin C) 1,000 mg BID PO Last administered on 08/27/18at 08:17; Admin Dose 1,000 MG; Start 08/23/18 at 11:00 Hydralazine HCl (Apresoline) 100 mg Q8H PO Last administered on 08/27/18at 11:55; Admin Dose 100 MG; Start 08/23/18 at 11:00 Levetiracetam (Keppra) 500 mg BID PO Last administered on 08/27/18at 08:17; Admin Dose 500 MG; Start 08/23/18 at 11:00 Multivitamins Therapeutic (Theragran) 1 tab DAILY PO Last administered on 08/27/18at 08:17; Admin Dose 1 TAB; Start 08/23/18 at 11:00 Clonidine (Catapres) 0.1 mg Q6H PRN PO sbp>160 Last administered on 08/27/18at 11:55; Admin Dose 0.1 MG; Start 08/23/18 at 10:00 IV Flush (NS 3 ml) 3 ml PER PROTOCOL IV ; Start 08/23/18 at 10:00 Miscellaneous Information (Pending [facility] Order For Wound Care) This patient hugo... PRN PRN XX WOUND CARE; Start 08/23/18 at 10:30 Diagnostic Test (Pha) (Accu-Chek) 1 ea 02 XX Last administered on 08/27/18at 02:22; Admin Dose 1 EA; Start 08/24/18 at 02:00 Insulin Aspart (Novolog Insulin Pen) NOVOLOG *MILD* ALGORITHM WITH MEALS BEDTIME SC Last administered on 08/23/18 17:30; Admin Dose 2 UNIT; Start 08/23/18 at 17:55 Zinc Sulfate (Zinc Sulfate) 220 mg DAILY PO Last administered on 08/27/18 08:17; Admin Dose 220 MG; Start 08/24/18 at 09:00; Stop 09/04/18 at 09:01 Quetiapine Fumarate (Seroquel) 50 mg HS PRN PO SLEEP Last administered on 08/26/18 02:07; Admin Dose 50 MG; Start 08/24/18 at 01:30 Furosemide (Lasix) 40 mg BID DIURETICS IV Last administered on 08/27/18 05:44; Admin Dose 40 MG; Start 08/24/18 at 08:30 Docusate Sodium (Colace) 200 mg BID PO Last administered on 08/27/18 08:17; Admin Dose 200 MG; Start 08/24/18 at 21:00 Insulin Glargine (Lantus) 15 units QHS SC Last administered on 08/26/18 21:33; Admin Dose 15 UNITS; Start 08/24/18 at 21:00 Senna (Senokot) 2 tab Q12 PO Last administered on 08/27/18 08:17; Admin Dose 2 TAB; Start 08/24/18 at 21:00 Psyllium Hydrophilic Mucilloid (Metamucil) 1 pkt BID PO Last administered on 08/27/18 08:18; Admin Dose 1 PKT; Start 08/24/18 at 09:30 Miscellaneous Information 1 ea NOTE XX ; Start 08/24/18 at 10:00 Glucose (Glutose) 15 gm Q15M PRN PO DECREASED GLUCOSE; Start 08/24/18 at 10:00 Glucose (Glutose) 22.5 gm Q15M PRN PO DECREASED GLUCOSE; Start 08/24/18 at 10:00 Dextrose (D50w Syringe) 25 ml Q15M PRN IV DECREASED GLUCOSE; Start 08/24/18 at 10:00 Dextrose (D50w Syringe) 50 ml Q15M PRN IV DECREASED GLUCOSE; Start 08/24/18 at 10:00 Glucagon (Glucagen) 1 mg Q15M PRN IM DECREASED GLUCOSE; Start 08/24/18 at 10:00 Glucose (Glutose) 15 gm Q15M PRN BUCCAL DECREASED GLUCOSE; Start 08/24/18 at 10:00 Doxazosin Mesylate (Cardura) 2 mg HS PO Last administered on 08/26/18 21:21; Admin Dose 2 MG; Start 08/25/18 at 21:00 Carvedilol (Coreg) 50 mg BID PO Last administered on 08/27/18 08:18; Admin Dose 50 MG; Start 08/24/18 at 21:00 Spironolactone (Aldactone) 25 mg DAILY@0600 PO Last administered on 08/27/18 05:43; Admin Dose 25 MG; Start 08/25/18 at 06:00 Hydralazine HCl (Apresoline) 10 mg Q4H PRN IV SBP>170 Last administered on 08/26/18 00:46; Admin Dose 10 MG; Start 08/24/18 at 14:30 Nifedipine (Procardia Xl) 60 mg BID PO Last administered on 08/27/18 08:18; Admin Dose 60 MG; Start 08/24/18 at 19:15 Rifaximin (Xifaxan) 550 mg BID PO Last administered on 08/27/18 08:17; Admin Dose 550 MG; Start 08/25/18 at 21:00 Al Hydrox/Mg Hydrox/Simethicone (Mag-Al Plus) 30 ml Q6H PRN PO GASTROINTESTINAL UPSET; Start 08/25/18 at 23:00 Sevelamer Carbonate (Renvela) 1,600 mg WITH MEALS PO Last administered on 08/27/18 11:55; Admin Dose 1,600 MG; Start 08/26/18 at 11:50 Oxycodone/ Acetaminophen (Percocet (5/ 325)) 1 tab Q4H PRN PO MODERATE PAIN LEVEL 4-6; Start 08/26/18 at 12:00 Oxycodone/ Acetaminophen (Percocet (5/ 325)) 2 tab Q4H PRN PO SEVERE PAIN LEVEL 7-10 Last administered on 08/27/18 11:56; Admin Dose 2 TAB; Start 08/26/18 at 12:00 Polyethylene Glycol (Miralax) 17 gm DAILY PO Last administered on 08/27/18 08:13; Admin Dose 17 GM; Start 08/27/18 at 09:00 Ondansetron HCl (Zofran Inj) 4 mg Q6H IV Last administered on 08/27/18at 09:07; Admin Dose 4 MG; Start 08/26/18 at 15:30 SHIRIN MAURICE Aug 27, 2018 14:13
[2018-08-27] MEDS: hydrALAzine 20 MG INJ IV PRN (15:54)
[2018-08-27] MEDS: INSULIN GLARGINE [LANTus] (100 UNITS/ML) SYG SC SCH ×2 (20:55→21:00)
--- NOTE | 2018-08-27 20:57 | PN ---
Date/Time of Note Date/Time of Note DATE: 08/27/18 TIME: 20:54 Assessment/Plan VTE Prophylaxis Risk score (from Ns)>0 risk: 2 SCD applied (from [facility] [place] SCD contraindicated: low risk/ambulating Pharmacological prophylaxis: LMWH Pharm contraindication: low risk/ambulating Lines/Catheters [facility] Saline Lock Urinary Cath still in place: No Assessment/Plan Hospital Course Assessment and plan 1. Decompensated ascites, anasarca, continue diuretics 2. Likely medication nonadherence 3. Chronic cirrhosis, HCV treated? 4. HCV 5. CHF? Diastolic EF 50 6. Type 2 diabetes A1c stable 7. Metabolic syndrome 8. Hypertension, a little elevated. Continue diuretics 9. Anemia possibly of chronic disease stable 10. Seizure disorder 11. Past tobacco 12. COPD? 13. Cystitis? Subjective: Events noted alert less distress than yesterday apparently. No fever. Objective: Sinus rhythm vitals stable Physical exam No pallor JVD icterus Regular no murmur gallop Diminished but clear Bs dimin; anasarca, nt; no r/r/g Mild edema Result Diagram: 08/26/18 0630 08/27/18 0606 Results 24hrs Laboratory Tests Test 08/26/18 21:14 08/27/18 02:01 08/27/18 06:06 08/27/18 07:49 Bedside Glucose 201 120 100 Sodium Level 142 Potassium Level 3.8 Chloride Level 116 H Carbon Dioxide Level 21 Anion Gap 5 Blood Urea Nitrogen 45 H Creatinine 4.29 H Est Glomerular Filtrat 15 L Rate mL/min Glucose Level 41 #*L Calcium Level 7.7 L Test 08/27/18 11:58 08/27/18 17:05 08/27/18 20:14 Bedside Glucose 110 143 172 Exam/Review of Systems Exam Vitals Vital Signs Date Temp Pulse Resp B/P (MAP) Pulse Ox O2 O2 Flow FiO2 Time Delivery Rate 08/27/18 98.3 68 19 138/71 94 20:00 (93) 08/25/18 Room Air 03:24 Intake and Output 08/26/18 08/26/18 08/27/18 1515:00 23:00 07:00 IntakeIntake Total 240 ml 360 ml 750 ml BalanceBalance 240 ml 360 ml 750 ml Results Results 24hrs Laboratory Tests Test 08/26/18 21:14 08/27/18 02:01 08/27/18 06:06 08/27/18 07:49 Bedside Glucose 201 120 100 Sodium Level 142 Potassium Level 3.8 Chloride Level 116 H Carbon Dioxide Level 21 Anion Gap 5 Blood Urea Nitrogen 45 H Creatinine 4.29 H Est Glomerular Filtrat 15 L Rate mL/min Glucose Level 41 #*L Calcium Level 7.7 L Test 08/27/18 11:58 08/27/18 17:05 08/27/18 20:14 Bedside Glucose 110 143 172 Medications Medication Current Medications Ascorbic Acid (Vitamin C) 1,000 mg BID PO Last administered on 08/27/18 08:17; Admin Dose 1,000 MG; Start 08/23/18 at 11:00 Hydralazine HCl (Apresoline) 100 mg Q8H PO Last administered on 08/27/18 18:06; Admin Dose 100 MG; Start 08/23/18 at 11:00 Levetiracetam (Keppra) 500 mg BID PO Last administered on 08/27/18 08:17; Admin Dose 500 MG; Start 08/23/18 at 11:00 Multivitamins Therapeutic (Theragran) 1 tab DAILY PO Last administered on 08/27/18 08:17; Admin Dose 1 TAB; Start 08/23/18 at 11:00 Clonidine (Catapres) 0.1 mg Q6H PRN PO sbp>160 Last administered on 08/27/18at 11:55; Admin Dose 0.1 MG; Start 08/23/18 at 10:00 IV Flush (NS 3 ml) 3 ml PER PROTOCOL IV ; Start 08/23/18 at 10:00 Miscellaneous Information (Pending Santyl Order For Wound Care) This patient hugo... PRN PRN XX WOUND CARE; Start 08/23/18 at 10:30 Diagnostic Test (Pha) (Accu-Chek) 1 ea 02 XX Last administered on 08/27/18at 02:22; Admin Dose 1 EA; Start 08/24/18 at 02:00 Insulin Aspart (Novolog Insulin Pen) NOVOLOG *MILD* ALGORITHM WITH MEALS BEDTIME SC Last administered on 08/27/18 17:08; Admin Dose 1 UNIT; Start 08/23/18 at 17:55 Zinc Sulfate (Zinc Sulfate) 220 mg DAILY PO Last administered on 08/27/18 08:17; Admin Dose 220 MG; Start 08/24/18 at 09:00; Stop 09/04/18 at 09:01 Quetiapine Fumarate (Seroquel) 50 mg HS PRN PO SLEEP Last administered on 08/26/18 02:07; Admin Dose 50 MG; Start 08/24/18 at 01:30 Furosemide (Lasix) 40 mg BID DIURETICS IV Last administered on 08/27/18 17:03; Admin Dose 40 MG; Start 08/24/18 at 08:30 Docusate Sodium (Colace) 200 mg BID PO Last administered on 08/27/18 08:17; Admin Dose 200 MG; Start 08/24/18 at 21:00 Insulin Glargine (Lantus) 15 units QHS SC Last administered on 08/26/18 21:33; Admin Dose 15 UNITS; Start 08/24/18 at 21:00 Senna (Senokot) 2 tab Q12 PO Last administered on 08/27/18 08:17; Admin Dose 2 TAB; Start 08/24/18 at 21:00 Psyllium Hydrophilic Mucilloid (Metamucil) 1 pkt BID PO Last administered on 08/27/18 08:18; Admin Dose 1 PKT; Start 08/24/18 at 09:30 Miscellaneous Information 1 ea NOTE XX ; Start 08/24/18 at 10:00 Glucose (Glutose) 15 gm Q15M PRN PO DECREASED GLUCOSE; Start 08/24/18 at 10:00 Glucose (Glutose) 22.5 gm Q15M PRN PO DECREASED GLUCOSE; Start 08/24/18 at 10:00 Dextrose (D50w Syringe) 25 ml Q15M PRN IV DECREASED GLUCOSE; Start 08/24/18 at 10:00 Dextrose (D50w Syringe) 50 ml Q15M PRN IV DECREASED GLUCOSE; Start 08/24/18 at 10:00 Glucagon (Glucagen) 1 mg Q15M PRN IM DECREASED GLUCOSE; Start 08/24/18 at 10:00 Glucose (Glutose) 15 gm Q15M PRN BUCCAL DECREASED GLUCOSE; Start 08/24/18 at 10:00 Doxazosin Mesylate (Cardura) 2 mg HS PO Last administered on 08/26/18 21:21; Admin Dose 2 MG; Start 08/25/18 at 21:00 Carvedilol (Coreg) 50 mg BID PO Last administered on 08/27/18 08:18; Admin Dose 50 MG; Start 08/24/18 at 21:00 Spironolactone (Aldactone) 25 mg DAILY@0600 PO Last administered on 08/27/18 05:43; Admin Dose 25 MG; Start 08/25/18 at 06:00 Hydralazine HCl (Apresoline) 10 mg Q4H PRN IV SBP>170 Last administered on 08/27/18 15:54; Admin Dose 10 MG; Start 08/24/18 at 14:30 Nifedipine (Procardia Xl) 60 mg BID PO Last administered on 08/27/18 08:18; Admin Dose 60 MG; Start 08/24/18 at 19:15 Rifaximin (Xifaxan) 550 mg BID PO Last administered on 08/27/18 08:17; Admin Dose 550 MG; Start 08/25/18 at 21:00 Al Hydrox/Mg Hydrox/Simethicone (Mag-Al Plus) 30 ml Q6H PRN PO GASTROINTESTINAL UPSET; Start 08/25/18 at 23:00 Sevelamer Carbonate (Renvela) 1,600 mg WITH MEALS PO Last administered on 08/27/18 17:02; Admin Dose 1,600 MG; Start 08/26/18 at 11:50 Oxycodone/ Acetaminophen (Percocet (5/ 325)) 1 tab Q4H PRN PO MODERATE PAIN LEVEL 4-6; Start 08/26/18 at 12:00 Oxycodone/ Acetaminophen (Percocet (5/ 325)) 2 tab Q4H PRN PO SEVERE PAIN LEVEL 7-10 Last administered on 08/27/18 20:16; Admin Dose 2 TAB; Start 08/26/18 at 12:00 Polyethylene Glycol (Miralax) 17 gm DAILY PO Last administered on 08/27/18 08:13; Admin Dose 17 GM; Start 08/27/18 at 09:00 Ondansetron HCl (Zofran Inj) 4 mg Q6H IV Last administered on 08/27/18 15:54; Admin Dose 4 MG; Start 08/26/18 at 15:30 ELVI SPENCE MD Aug 27, 2018 20:57
[2018-08-27] MEDS: QUETIAPINE 25 MG TAB PO PRN (22:03)
[2018-08-27] MEDS: DOXAZOSIN 2 MG TAB PO SCH (22:04)
[2018-08-28] VITALS: BP 169/87; PULSE 74; RESP 20
[2018-08-28] MEDS: OXYCODONE/ACETAMINOPHEN (5/325) TAB PO PRN ×5 (01:57→20:53)
[2018-08-28] MEDS: ACCU-CHEK XX SCH (02:35)
[2018-08-28] MEDS: ONDANSETRON 4 MG INJ IV SCH ×4 (03:30→21:25)
[2018-08-28 04:00] VITALS: BP 133/66; PULSE 71; RESP 18
[2018-08-28] MEDS: SPIRONOLACTONE 25 MG TAB PO SCH (06:14)
[2018-08-28] MEDS: FUROSEMIDE 40 MG INJ IV SCH ×2 (06:14→16:51)
[2018-08-28 07:42] VITALS: BP 157/86; PULSE 73; RESP 18
[2018-08-28] MEDS: INSULIN ASPART [NOVOLOG] 3 ML PEN SC SCH ×4 (07:55→21:00)
--- NOTE | 2018-08-28 08:33 | PN ---
DATE: 08/28/2018 SUBJECTIVE: The patient is stable, no events overnight. OBJECTIVE: VITAL SIGNS: Blood pressure is 133/63, respiration 18, pulse 71, temperature 98.4. HEENT: Head is normocephalic. NECK: Supple. HEART: Regular rate. LUNGS: Show diminished breath sounds at the base. ABDOMEN: Soft, nontender to palpation without rebound or guarding. EXTREMITIES: Negative for clubbing, cyanosis. Positive BKA. DERMATOLOGIC: No rashes. MUSCULOSKELETAL: No joint effusion. NEUROLOGIC: No change in exam. MEDICATIONS: The patient's medications have been reviewed. LABORATORY DATA: Has been reviewed. IMAGING STUDIES: Have been reviewed. ASSESSMENT AND PLAN: 1. Nonoliguric acute kidney injury on top of chronic kidney disease stage IV with previous baseline creatinine around 3.5 mg/dL. Etiology of acute kidney injury is secondary to hemodynamics, possible progression of chronic kidney disease. The patient's renal function appears to be stabilizing around a creatinine of 4.2 to 4.5 mg/dL. At this point, continue current treatment plan, supportive care a nd renally dose all medicines, continue diuretic therapy. The patient is refusing hemodialysis. 2. Volume overload, clinically improving. Continue current diuretic regimen. 3. Acute heart failure. Continue current medical management. Continue Lasix. 4. Metabolic acidosis secondary to acute kidney injury. Continue to monitor. 5. Cirrhosis, decompensated. The patient is status post paracentesis. Continue medical management. Continue diuretic regimen. 6. Scrotal edema, improving. Continue to elevate testes. Follow up with urology. 7. Hypertension. Continue current blood pressure regimen. 8. History of right below knee amputation. 9. Seizure disorder. Dictated By: BON WHITAKER DO NR/NTS Conf#: [id number] DID#: [id number] CC: PEDRO BLANC MD; ELVI SPENCE MD; VADIM CORRIGAN MD;*End*
[2018-08-28] MEDS: ASCORBIC ACID 500 MG TAB PO SCH ×2 (08:55→22:49)
[2018-08-28] MEDS: LEVETIRACETAM 500 MG TAB PO SCH ×2 (08:55→21:23)
[2018-08-28] MEDS: SENNA TAB PO SCH ×2 (08:55→21:23)
[2018-08-28] MEDS: RIFAXIMIN 550 MG TAB PO SCH ×2 (08:58→21:24)
[2018-08-28] MEDS: FAMOTIDINE 20 MG TAB PO SCH (08:58)
[2018-08-28] MEDS: MULTIVITAMINS THERAPEUTIC TAB PO SCH (08:59)
[2018-08-28] MEDS: SEVELAMER CARBONATE 800 MG TABLET PO SCH ×3 (08:59→16:37)
[2018-08-28] MEDS: ZINC SULFATE 220 MG CAP PO SCH (08:59)
[2018-08-28] MEDS: PSYLLIUM 28% PACKET PO SCH ×2 (08:59→21:00)
[2018-08-28] MEDS: NIFEdipine (XL) 30 MG TAB PO SCH ×2 (09:00→21:22)
[2018-08-28] MEDS: POLYETHYLENE GLYCOL 17 GM PACKET PO SCH (09:01)
[2018-08-28] MEDS: ENOXAPARIN 30 MG/0.3 ML SYG SC SCH (09:08)
[2018-08-28 11:49] VITALS: BP 149/78; PULSE 78; RESP 18
--- NOTE | 2018-08-28 12:07 | CONS ---
Consult Date/Type/Reason Admit Date/Time Aug 23, 2018 at 05:55 Initial Consult Date 08/25/18 Type of Consultation: Urology Requesting Provider: VADIM CORRIGAN MD Date/Time of Note DATE: 08/28/18 TIME: 12:05 Subjective NO acute events - pt stable - still refusing HD - con't to monitor for now. ROS: No fever, no chills, no nausea, no vomiting, no diarrhea/constipation No recent weight changes No chest pain, no PND, no orthopnea + SOB / GODWIN No dizziness, blurred vision No thirst, no heat or cold intolerance Objective Vitals Vital Signs Date Temp Pulse Resp B/P (MAP) Pulse Ox O2 O2 Flow FiO2 Time Delivery Rate 08/28/18 98.0 78 18 149/78 98 11:49 (101) 08/25/18 Room Air 03:24 Intake and Output 08/27/18 08/27/18 08/28/18 1515:00 23:00 07:00 IntakeIntake Total 400 ml 250 ml OutputOutput Total 1200 ml 300 ml BalanceBalance -800 ml -50 ml Exam General: WN/WD/NAD, AOx 1-2 psych HEENT: Unicetric/atraumatic/EOMI (follow commands) NECK: JVD elevated, no thyromegaly Lymph: no lymphadenopathy HEART: regular with no S3, II/ systolic murmur at apex, PMI L LUNGS: Coarse sounds ABD: soft, NT, ND, +BS : Intact Neuro: non focal SKIN: chronic changes EXT: + edema Results/Medications Result Diagram: 08/26/18 0630 08/28/18 0733 Results 24 hrs Laboratory Tests Test 08/27/18 17:05 08/27/18 20:14 08/28/18 01:56 08/28/18 07:33 Bedside Glucose 143 172 129 Sodium Level 141 Potassium Level 4.3 Chloride Level 115 H Carbon Dioxide Level 20 L Anion Gap 6 Blood Urea Nitrogen 54 H Creatinine 4.63 H Est Glomerular Filtrat 13 L Rate mL/min Glucose Level 79 Calcium Level 7.4 L Magnesium Level 1.8 Thyroid Stimulating 6.520 H Hormone (TSH) Test 08/28/18 08:32 08/28/18 11:57 Bedside Glucose 98 84 Home Meds Reported Medications Lactose-Free Food (Ensure High Protein) 237 Ml Liquid, 237 ML PO 08/23/18 Aspirin* (Aspirin* Chew) 81 Mg Tab.chew, 81 MG PO DAILY, TAB.CHEW 08/23/18 Insulin Glargine* (Lantus*) 100 Unit/Ml Soln, 15 UNIT SC QHS, #1 VIAL 08/23/18 Insulin Isophan/Regular (Humulin 70/30) 100 Units/Ml Susp, 3 UNIT SC AC BREAKFAST DINNER, EA 08/23/18 Methadone Hcl* (Methadone*) 10 Mg Tab, 40 MG PO, TAB 07/06/18 Sennosides* (Senna Lax*) 8.6 Mg Tablet, 2 TAB PO QHS, TAB 07/06/18 Zinc Sulfate* (Zinc Sulfate*) 220 Mg Cap, 220 MG PO DAILY, CAP 07/06/18 Carvedilol* (Carvedilol*) 25 Mg Tablet, 25 MG PO BID, #60 TAB HOLD IF SBP<110 OR HR <60 07/06/18 Multivitamin (Multivitamins) 1 Each Capsule, 1 EACH PO, CAP 07/06/18 Clonidine Hcl* (Catapres*) 0.3 Mg Tablet, 0.3 MG PO Q8 PRN for ELEVATED BLOOD PRESSURE, TAB FOR SBP>170 07/06/18 Ascorbic Acid (Vitamin C) 500 Mg Tab, 1000 MG PO BID, TAB 07/06/18 Amlodipine Besylate* (Norvasc*) 10 Mg Tablet, 10 MG PO BID, TAB 07/06/18 Docusate Sodium* (Colace*) 100 Mg Capsule, 200 MG PO QPM, #30 CAP 07/06/18 Docusate Sodium* (Colace*) 100 Mg Capsule, 200 MG PO QAM, #60 CAP 07/06/18 Hydralazine Hcl* (Hydralazine Hcl*) 50 Mg Tab, 100 MG PO Q8H, #120 TAB HOLD IF SBP<100 07/06/18 Glipizide* (Glipizide*) 5 Mg Tablet, 5 MG PO BID, TAB 07/05/18 Levetiracetam* (Keppra*) 500 Mg Tablet, 500 MG PO BID, TAB 07/05/18 Medications Current Medications Ascorbic Acid (Vitamin C) 1,000 mg BID PO Last administered on 08/28/18at 08:55; Admin Dose 1,000 MG; Start 08/23/18 at 11:00 Hydralazine HCl (Apresoline) 100 mg Q8H PO Last administered on 08/28/18 11:59; Admin Dose 100 MG; Start 08/23/18 at 11:00 Levetiracetam (Keppra) 500 mg BID PO Last administered on 08/28/18 08:55; Admin Dose 500 MG; Start 08/23/18 at 11:00 Multivitamins Therapeutic (Theragran) 1 tab DAILY PO Last administered on 08/28/18 08:59; Admin Dose 1 TAB; Start 08/23/18 at 11:00 Clonidine (Catapres) 0.1 mg Q6H PRN PO sbp>160 Last administered on 08/27/18 11:55; Admin Dose 0.1 MG; Start 08/23/18 at 10:00 IV Flush (NS 3 ml) 3 ml PER PROTOCOL IV ; Start 08/23/18 at 10:00 Miscellaneous Information (Pending [facility] Order For Wound Care) This patient hugo... PRN PRN XX WOUND CARE; Start 08/23/18 at 10:30 Diagnostic Test (Pha) (Accu-Chek) 1 ea 02 XX Last administered on 08/28/18 02:35; Admin Dose 1 EA; Start 08/24/18 at 02:00 Insulin Aspart (Novolog Insulin Pen) NOVOLOG *MILD* ALGORITHM WITH MEALS BEDTIME SC Last administered on 08/27/18 17:08; Admin Dose 1 UNIT; Start 08/23/18 at 17:55 Zinc Sulfate (Zinc Sulfate) 220 mg DAILY PO Last administered on 08/28/18 08:59; Admin Dose 220 MG; Start 08/24/18 at 09:00; Stop 09/04/18 at 09:01 Quetiapine Fumarate (Seroquel) 50 mg HS PRN PO SLEEP Last administered on 08/27/18 22:03; Admin Dose 50 MG; Start 08/24/18 at 01:30 Furosemide (Lasix) 40 mg BID DIURETICS IV Last administered on 08/28/18 06:14; Admin Dose 40 MG; Start 08/24/18 at 08:30 Senna (Senokot) 2 tab Q12 PO Last administered on 08/28/18 08:55; Admin Dose 2 TAB; Start 08/24/18 at 21:00 Psyllium Hydrophilic Mucilloid (Metamucil) 1 pkt BID PO Last administered on 08/28/18at 08:59; Admin Dose 1 PKT; Start 08/24/18 at 09:30 Miscellaneous Information 1 ea NOTE XX ; Start 08/24/18 at 10:00 Glucose (Glutose) 15 gm Q15M PRN PO DECREASED GLUCOSE; Start 08/24/18 at 10:00 Glucose (Glutose) 22.5 gm Q15M PRN PO DECREASED GLUCOSE; Start 08/24/18 at 10:00 Dextrose (D50w Syringe) 25 ml Q15M PRN IV DECREASED GLUCOSE; Start 08/24/18 at 10:00 Dextrose (D50w Syringe) 50 ml Q15M PRN IV DECREASED GLUCOSE; Start 08/24/18 at 10:00 Glucagon (Glucagen) 1 mg Q15M PRN IM DECREASED GLUCOSE; Start 08/24/18 at 10:00 Glucose (Glutose) 15 gm Q15M PRN BUCCAL DECREASED GLUCOSE; Start 08/24/18 at 10:00 Doxazosin Mesylate (Cardura) 2 mg HS PO Last administered on 08/27/18at 22:04; Admin Dose 2 MG; Start 08/25/18 at 21:00 Carvedilol (Coreg) 50 mg BID PO Last administered on 08/28/18at 08:58; Admin Dose 50 MG; Start 08/24/18 at 21:00 Spironolactone (Aldactone) 25 mg DAILY@0600 PO Last administered on 08/28/18at 06:14; Admin Dose 25 MG; Start 08/25/18 at 06:00 Hydralazine HCl (Apresoline) 10 mg Q4H PRN IV SBP>170 Last administered on 08/27/18at 15:54; Admin Dose 10 MG; Start 08/24/18 at 14:30 Nifedipine (Procardia Xl) 60 mg BID PO Last administered on 08/28/18at 09:00; Admin Dose 60 MG; Start 08/24/18 at 19:15 Rifaximin (Xifaxan) 550 mg BID PO Last administered on 08/28/18at 08:58; Admin Dose 550 MG; Start 08/25/18 at 21:00 Al Hydrox/Mg Hydrox/Simethicone (Mag-Al Plus) 30 ml Q6H PRN PO GASTROINTESTINAL UPSET; Start 08/25/18 at 23:00 Sevelamer Carbonate (Renvela) 1,600 mg WITH MEALS PO Last administered on 08/28/18at 11:58; Admin Dose 1,600 MG; Start 08/26/18 at 11:50 Oxycodone/ Acetaminophen (Percocet (5/ 325)) 1 tab Q4H PRN PO MODERATE PAIN LEVEL 4-6; Start 08/26/18 at 12:00 Oxycodone/ Acetaminophen (Percocet (5/ 325)) 2 tab Q4H PRN PO SEVERE PAIN LEVEL 7-10 Last administered on 08/28/18at 12:03; Admin Dose 2 TAB; Start 08/26/18 at 12:00 Polyethylene Glycol (Miralax) 17 gm DAILY PO Last administered on 08/28/18at 09:01; Admin Dose 17 GM; Start 08/27/18 at 09:00 Ondansetron HCl (Zofran Inj) 4 mg Q6H IV Last administered on 08/28/18at 09:00; Admin Dose 4 MG; Start 08/26/18 at 15:30 Insulin Glargine (Lantus) 10 units QHS SC ; Start 08/27/18 at 21:00 Famotidine (Pepcid) 20 mg DAILY PO Last administered on 08/28/18at 08:58; Admin Dose 20 MG; Start 08/28/18 at 09:00 Enoxaparin Sodium (Lovenox) 30 mg DAILY SC Last administered on 08/28/18at 09:08; Admin Dose 30 MG; Start 08/28/18 at 09:00 Assessment/Plan Hospital Course (Demo Recall) 1. Congestive heart failure, question diastolic versus systolic, likely acute on chronic - con't diuresis as tolerated, pt refuses HD - will try to maintain volume status with renal team. 2. Premature ventricular contractions by telemetry, rule out acute coronary syndrome - stable on tele now. Now in sinus. NO sustained ectopy on tele. 3. Hypertension, severe, uncontrolled - BP better - con't to adjust Rx. Well controlled. 4. Renal failure - acute on chronic - renal team follows. Renal team follows. HIGH Cr - renal follows. REFUSED HD again. 5. Liver cirrhosis. 6. Ascites, status post paracentesis- better now. Con't to keep euvolemic. No bleeding now. 7. Anemia - no active bleedig, blood Tx if needed. 8. Borderline urinary tract infection - on antibx. 9. Scrotal edema- stable. 10. Hydrocele. LOC YODER MD Aug 28, 2018 12:07
--- NOTE | 2018-08-28 13:36 | PN ---
Date/Time of Note Date/Time of Note DATE: 08/28/18 TIME: 13:29 Assessment/Plan VTE Prophylaxis Risk score (from Ns)>0 risk: 2 SCD applied (from Ns): No SCD contraindicated: bilateral LE trauma Pharmacological prophylaxis: NA/contraindicated Pharm contraindication: liver dx Lines/Catheters [facility]from [facility] Saline Lock Urinary Cath still in place: No Assessment/Plan Hospital Course Assessment: Advanced liver cirrhosis with ascites Nausea/vomitingnew onset Thickening of bladder on CT Constipation on imaging Reported history of hepatitis C, untreated Diffuse scrotal edema with pain CARMELINA on CKD Congestive heart failure Hypertension Diabetes Left lower extremity ulcers Right BKA Seizure disorder Plan: Continue GI regimen Pt to f/u with GI after d/c for out-pt EGD and treatment for Hep C Stool for H. pylori- pending Continue current diuretic regimen Patient appears stable for out-pt management from GI point of view Patient seen in collaboration with Dr. Morales Subjective: Pt had a BM last night, no complaints currently He denies n/v and abdominal pain. Pt states his plan is to go back on hospice after discharge. Discussed possibility for out-pt EGD and possible treatment for hepatitis C- pending patient;[facility] Constitutional: alert, oriented Psych: no complaints Head: normocephalic Eyes: nl conjunctiva ENMT: nl external ears & nose Neck: supple Respiratory: clear to auscultation Cardiovascular: regular rate and rhythm Gastrointestinal: ascites, bowel sounds, distended Genitourinary - Male: other (Scrotal edema) Result Diagram: 08/26/18 0630 08/28/18 0733 Results 24hrs Laboratory Tests Test 08/27/18 17:05 08/27/18 20:14 08/28/18 01:56 08/28/18 07:33 Bedside Glucose 143 172 129 Sodium Level 141 Potassium Level 4.3 Chloride Level 115 H Carbon Dioxide Level 20 L Anion Gap 6 Blood Urea Nitrogen 54 H Creatinine 4.63 H Est Glomerular Filtrat 13 L Rate mL/min Glucose Level 79 Calcium Level 7.4 L Magnesium Level 1.8 Thyroid Stimulating 6.520 H Hormone (TSH) Test 08/28/18 08:32 08/28/18 11:57 Bedside Glucose 98 84 Exam/Review of Systems Exam Vitals Vital Signs Date Temp Pulse Resp B/P (MAP) Pulse Ox O2 O2 Flow FiO2 Time Delivery Rate 08/28/18 98.0 78 18 149/78 98 11:49 (101) 08/25/18 Room Air 03:24 Intake and Output 08/27/18 08/27/18 08/28/18 1515:00 23:00 07:00 IntakeIntake Total 400 ml 250 ml OutputOutput Total 1200 ml 300 ml BalanceBalance -800 ml -50 ml Results Results 24hrs Laboratory Tests Test 08/27/18 17:05 08/27/18 20:14 08/28/18 01:56 08/28/18 07:33 Bedside Glucose 143 172 129 Sodium Level 141 Potassium Level 4.3 Chloride Level 115 H Carbon Dioxide Level 20 L Anion Gap 6 Blood Urea Nitrogen 54 H Creatinine 4.63 H Est Glomerular Filtrat 13 L Rate mL/min Glucose Level 79 Calcium Level 7.4 L Magnesium Level 1.8 Thyroid Stimulating 6.520 H Hormone (TSH) Test 08/28/18 08:32 08/28/18 11:57 Bedside Glucose 98 84 Medications Medication Current Medications Ascorbic Acid (Vitamin C) 1,000 mg BID PO Last administered on 08/28/18 08:55; Admin Dose 1,000 MG; Start 08/23/18 at 11:00 Hydralazine HCl (Apresoline) 100 mg Q8H PO Last administered on 08/28/18 11:59; Admin Dose 100 MG; Start 08/23/18 at 11:00 Levetiracetam (Keppra) 500 mg BID PO Last administered on 08/28/18 08:55; Admin Dose 500 MG; Start 08/23/18 at 11:00 Multivitamins Therapeutic (Theragran) 1 tab DAILY PO Last administered on 08/28/18 08:59; Admin Dose 1 TAB; Start 08/23/18 at 11:00 Clonidine (Catapres) 0.1 mg Q6H PRN PO sbp>160 Last administered on 08/27/18 11:55; Admin Dose 0.1 MG; Start 08/23/18 at 10:00 IV Flush (NS 3 ml) 3 ml PER PROTOCOL IV ; Start 08/23/18 at 10:00 [facility] This patient hugo... PRN PRN XX WOUND CARE; Start 08/23/18 at 10:30 Diagnostic Test (Pha) (Accu-Chek) 1 ea 02 XX Last administered on 08/28/18at 02:35; Admin Dose 1 EA; Start 08/24/18 at 02:00 Insulin Aspart (Novolog Insulin Pen) NOVOLOG *MILD* ALGORITHM WITH MEALS BEDTIME SC Last administered on 08/27/18 17:08; Admin Dose 1 UNIT; Start 08/23/18 at 17:55 Zinc Sulfate (Zinc Sulfate) 220 mg DAILY PO Last administered on 08/28/18 08:59; Admin Dose 220 MG; Start 08/24/18 at 09:00; Stop 09/04/18 at 09:01 Quetiapine Fumarate (Seroquel) 50 mg HS PRN PO SLEEP Last administered on 08/27/18 22:03; Admin Dose 50 MG; Start 08/24/18 at 01:30 Furosemide (Lasix) 40 mg BID DIURETICS IV Last administered on 08/28/18 06:14; Admin Dose 40 MG; Start 08/24/18 at 08:30 Senna (Senokot) 2 tab Q12 PO Last administered on 08/28/18 08:55; Admin Dose 2 TAB; Start 08/24/18 at 21:00 Psyllium Hydrophilic Mucilloid (Metamucil) 1 pkt BID PO Last administered on 08/28/18 08:59; Admin Dose 1 PKT; Start 08/24/18 at 09:30 Miscellaneous Information 1 ea NOTE XX ; Start 08/24/18 at 10:00 Glucose (Glutose) 15 gm Q15M PRN PO DECREASED GLUCOSE; Start 08/24/18 at 10:00 Glucose (Glutose) 22.5 gm Q15M PRN PO DECREASED GLUCOSE; Start 08/24/18 at 10:00 Dextrose (D50w Syringe) 25 ml Q15M PRN IV DECREASED GLUCOSE; Start 08/24/18 at 10:00 Dextrose (D50w Syringe) 50 ml Q15M PRN IV DECREASED GLUCOSE; Start 08/24/18 at 10:00 Glucagon (Glucagen) 1 mg Q15M PRN IM DECREASED GLUCOSE; Start 08/24/18 at 10:00 Glucose (Glutose) 15 gm Q15M PRN BUCCAL DECREASED GLUCOSE; Start 08/24/18 at 10:00 Doxazosin Mesylate (Cardura) 2 mg HS PO Last administered on 08/27/18 22:04; Admin Dose 2 MG; Start 08/25/18 at 21:00 Carvedilol (Coreg) 50 mg BID PO Last administered on 08/28/18 08:58; Admin Dose 50 MG; Start 08/24/18 at 21:00 Spironolactone (Aldactone) 25 mg DAILY@0600 PO Last administered on 08/28/18 06:14; Admin Dose 25 MG; Start 08/25/18 at 06:00 Hydralazine HCl (Apresoline) 10 mg Q4H PRN IV SBP>170 Last administered on 08/27/18 15:54; Admin Dose 10 MG; Start 08/24/18 at 14:30 Nifedipine (Procardia Xl) 60 mg BID PO Last administered on 08/28/18 09:00; Admin Dose 60 MG; Start 08/24/18 at 19:15 Rifaximin (Xifaxan) 550 mg BID PO Last administered on 08/28/18 08:58; Admin Dose 550 MG; Start 08/25/18 at 21:00 Al Hydrox/Mg Hydrox/Simethicone (Mag-Al Plus) 30 ml Q6H PRN PO GASTROINTESTINAL UPSET; Start 08/25/18 at 23:00 Sevelamer Carbonate (Renvela) 1,600 mg WITH MEALS PO Last administered on 08/28/18 11:58; Admin Dose 1,600 MG; Start 08/26/18 at 11:50 Oxycodone/ Acetaminophen (Percocet (5/ 325)) 1 tab Q4H PRN PO MODERATE PAIN LEVEL 4-6; Start 08/26/18 at 12:00 Oxycodone/ Acetaminophen (Percocet (5/ 325)) 2 tab Q4H PRN PO SEVERE PAIN LEVEL 7-10 Last administered on 08/28/18 12:03; Admin Dose 2 TAB; Start 08/26/18 at 12:00 Polyethylene Glycol (Miralax) 17 gm DAILY PO Last administered on 08/28/18 09:01; Admin Dose 17 GM; Start 08/27/18 at 09:00 Ondansetron HCl (Zofran Inj) 4 mg Q6H IV Last administered on 08/28/18 09:00; Admin Dose 4 MG; Start 08/26/18 at 15:30 Insulin Glargine (Lantus) 10 units QHS SC ; Start 08/27/18 at 21:00 Famotidine (Pepcid) 20 mg DAILY PO Last administered on 08/28/18at 08:58; Admin Dose 20 MG; Start 08/28/18 at 09:00 Enoxaparin Sodium (Lovenox) 30 mg DAILY SC Last administered on 08/28/18at 09:08; Admin Dose 30 MG; Start 08/28/18 at 09:00 SHIRIN MAURICE Aug 28, 2018 13:36
[2018-08-28 16:31] VITALS: BP 138/75; PULSE 75; RESP 18
--- NOTE | 2018-08-28 17:53 | PN ---
Date/Time of Note Date/Time of Note DATE: 08/28/18 TIME: 17:51 Assessment/Plan VTE Prophylaxis Risk score (from Ns)>0 risk: 3 SCD applied (from [facility]): No SCD contraindicated: low risk/ambulating Pharmacological prophylaxis: NA/contraindicated Pharm contraindication: low risk/ambulating Lines/Catheters IV Catheter Type (from [facility] Saline Lock Urinary Cath still in place: No Assessment/Plan Hospital Course Assessment and plan 1. Decompensated ascites, anasarca, cont diuretics 2. Likely medication nonadherence 3. Chronic cirrhosis, HCV treated? Outpatient GI 4. HCV. Follow-up on outpatient GI 5. CHF? Diastolic EF 50 6. Type 2 diabetes A1c stable 7. Metabolic syndrome 8. Hypertension. 9. Anemia possibly of chronic disease stable 10. Seizure disorder 11. Past tobacco 12. COPD? 13. Cystitis? 14. Acute renal failure. Patient refused dialysis. Prognosis poor, will attempt palliative care discussion. S: 02/27 events noted alert less distress than yesterday apparently. No fever. 08/28: Events noted O: Sr vss PE No pallor JVD Regular no mrg Diminished but clear Bs dimin; anasarca, nt; no r/r/g Mild edema Result Diagram: 08/26/18 0630 08/28/18 0733 Results 24hrs Laboratory Tests Test 08/27/18 20:14 08/28/18 01:56 08/28/18 07:33 08/28/18 08:32 Bedside Glucose 172 129 98 Sodium Level 141 Potassium Level 4.3 Chloride Level 115 H Carbon Dioxide Level 20 L Anion Gap 6 Blood Urea Nitrogen 54 H Creatinine 4.63 H Est Glomerular Filtrat 13 L Rate mL/min Glucose Level 79 Calcium Level 7.4 L Magnesium Level 1.8 Thyroid Stimulating 6.520 H Hormone (TSH) Test 08/28/18 11:57 08/28/18 16:43 Bedside Glucose 84 123 Exam/Review of Systems Exam Vitals Vital Signs Date Temp Pulse Resp B/P (MAP) Pulse Ox O2 O2 Flow FiO2 Time Delivery Rate 08/28/18 98.0 75 18 138/75 98 16:31 (96) 08/25/18 Room Air 03:24 Intake and Output 08/27/18 08/27/18 08/28/18 1515:00 23:00 07:00 IntakeIntake Total 400 ml 250 ml OutputOutput Total 1200 ml 300 ml BalanceBalance -800 ml -50 ml Results Results 24hrs Laboratory Tests Test 08/27/18 20:14 08/28/18 01:56 08/28/18 07:33 08/28/18 08:32 Bedside Glucose 172 129 98 Sodium Level 141 Potassium Level 4.3 Chloride Level 115 H Carbon Dioxide Level 20 L Anion Gap 6 Blood Urea Nitrogen 54 H Creatinine 4.63 H Est Glomerular Filtrat 13 L Rate mL/min Glucose Level 79 Calcium Level 7.4 L Magnesium Level 1.8 Thyroid Stimulating 6.520 H Hormone (TSH) Test 08/28/18 11:57 08/28/18 16:43 Bedside Glucose 84 123 Medications Medication Current Medications Ascorbic Acid (Vitamin C) 1,000 mg BID PO Last administered on 08/28/18 08:55; Admin Dose 1,000 MG; Start 08/23/18 at 11:00 Hydralazine HCl (Apresoline) 100 mg Q8H PO Last administered on 08/28/18 11:59; Admin Dose 100 MG; Start 08/23/18 at 11:00 Levetiracetam (Keppra) 500 mg BID PO Last administered on 08/28/18 08:55; Admin Dose 500 MG; Start 08/23/18 at 11:00 Multivitamins Therapeutic (Theragran) 1 tab DAILY PO Last administered on 08/28/18 08:59; Admin Dose 1 TAB; Start 08/23/18 at 11:00 Clonidine (Catapres) 0.1 mg Q6H PRN PO sbp>160 Last administered on 08/27/18at 11:55; Admin Dose 0.1 MG; Start 08/23/18 at 10:00 IV Flush (NS 3 ml) 3 ml PER PROTOCOL IV ; Start 08/23/18 at 10:00 Miscellaneous Information (Pending [facility] Order For Wound Care) This patient hugo... PRN PRN XX WOUND CARE; Start 08/23/18 at 10:30 Diagnostic Test (Pha) (Accu-Chek) 1 ea 02 XX Last administered on 08/28/18at 02:35; Admin Dose 1 EA; Start 08/24/18 at 02:00 Insulin Aspart (Novolog Insulin Pen) NOVOLOG *MILD* ALGORITHM WITH MEALS BEDTIME SC Last administered on 08/27/18 17:08; Admin Dose 1 UNIT; Start 08/23/18 at 17:55 Zinc Sulfate (Zinc Sulfate) 220 mg DAILY PO Last administered on 08/28/18 08: 59; Admin Dose 220 MG; Start 08/24/18 at 09:00; Stop 09/04/18 at 09:01 Quetiapine Fumarate (Seroquel) 50 mg HS PRN PO SLEEP Last administered on 08/27/18 22:03; Admin Dose 50 MG; Start 08/24/18 at 01:30 Furosemide (Lasix) 40 mg BID DIURETICS IV Last administered on 08/28/18 16:51; Admin Dose 40 MG; Start 08/24/18 at 08:30 Senna (Senokot) 2 tab Q12 PO Last administered on 08/28/18 08:55; Admin Dose 2 TAB; Start 08/24/18 at 21:00 Psyllium Hydrophilic Mucilloid (Metamucil) 1 pkt BID PO Last administered on 08/28/18 08:59; Admin Dose 1 PKT; Start 08/24/18 at 09:30 Miscellaneous Information 1 ea NOTE XX ; Start 08/24/18 at 10:00 Glucose (Glutose) 15 gm Q15M PRN PO DECREASED GLUCOSE; Start 08/24/18 at 10:00 Glucose (Glutose) 22.5 gm Q15M PRN PO DECREASED GLUCOSE; Start 08/24/18 at 10:00 Dextrose (D50w Syringe) 25 ml Q15M PRN IV DECREASED GLUCOSE; Start 08/24/18 at 10:00 Dextrose (D50w Syringe) 50 ml Q15M PRN IV DECREASED GLUCOSE; Start 08/24/18 at 10:00 Glucagon (Glucagen) 1 mg Q15M PRN IM DECREASED GLUCOSE; Start 08/24/18 at 10:00 Glucose (Glutose) 15 gm Q15M PRN BUCCAL DECREASED GLUCOSE; Start 08/24/18 at 10:00 Doxazosin Mesylate (Cardura) 2 mg HS PO Last administered on 08/27/18 22:04; Admin Dose 2 MG; Start 08/25/18 at 21:00 Carvedilol (Coreg) 50 mg BID PO Last administered on 08/28/18 08:58; Admin Dose 50 MG; Start 08/24/18 at 21:00 Spironolactone (Aldactone) 25 mg DAILY@0600 PO Last administered on 08/28/18 06:14; Admin Dose 25 MG; Start 08/25/18 at 06:00 Hydralazine HCl (Apresoline) 10 mg Q4H PRN IV SBP>170 Last administered on 08/27/18 15:54; Admin Dose 10 MG; Start 08/24/18 at 14:30 Nifedipine (Procardia Xl) 60 mg BID PO Last administered on 08/28/18 09:00; Admin Dose 60 MG; Start 08/24/18 at 19:15 Rifaximin (Xifaxan) 550 mg BID PO Last administered on 08/28/18 08:58; Admin Dose 550 MG; Start 08/25/18 at 21:00 Al Hydrox/Mg Hydrox/Simethicone (Mag-Al Plus) 30 ml Q6H PRN PO GASTROINTESTINAL UPSET; Start 08/25/18 at 23:00 Sevelamer Carbonate (Renvela) 1,600 mg WITH MEALS PO Last administered on 08/28/18 16:37; Admin Dose 1,600 MG; Start 08/26/18 at 11:50 Oxycodone/ Acetaminophen (Percocet (5/ 325)) 1 tab Q4H PRN PO MODERATE PAIN LEVEL 4-6; Start 08/26/18 at 12:00 Oxycodone/ Acetaminophen (Percocet (5/ 325)) 2 tab Q4H PRN PO SEVERE PAIN LEVEL 7-10 Last administered on 08/28/18 16:37; Admin Dose 2 TAB; Start 08/26/18 at 12:00 Polyethylene Glycol (Miralax) 17 gm DAILY PO Last administered on 08/28/18 09:01; Admin Dose 17 GM; Start 08/27/18 at 09:00 Ondansetron HCl (Zofran Inj) 4 mg Q6H IV Last administered on 08/28/18 16:36; Admin Dose 4 MG; Start 08/26/18 at 15:30 Insulin Glargine (Lantus) 10 units QHS SC ; Start 08/27/18 at 21:00 Famotidine (Pepcid) 20 mg DAILY PO Last administered on 08/28/18 08:58; Admin Dose 20 MG; Start 08/28/18 at 09:00 Enoxaparin Sodium (Lovenox) 30 mg DAILY SC Last administered on 08/28/18at 09:08; Admin Dose 30 MG; Start 08/28/18 at 09:00 ELVI SPENCE MD Aug 28, 2018 17:53
[2018-08-28 19:27] VITALS: BP 159/81; PULSE 76; RESP 20
[2018-08-28] MEDS: DOXAZOSIN 2 MG TAB PO SCH (21:26)
[2018-08-28] MEDS: QUETIAPINE 25 MG TAB PO PRN (21:42)
[2018-08-28] MEDS: INSULIN GLARGINE [LANTus] (100 UNITS/ML) SYG SC SCH (22:23)
[2018-08-29] VITALS: BP_SYST 150; BP_DIAS 18; BP_DIAS 81; PULSE 80; RESP 19
[2018-08-29] MEDS: ACCU-CHEK XX SCH (02:00)
[2018-08-29] MEDS: ONDANSETRON 4 MG INJ IV SCH ×3 (03:30→15:25)
[2018-08-29 04:00] VITALS: BP 151/89; PULSE 75; RESP 19
[2018-08-29] MEDS: OXYCODONE/ACETAMINOPHEN (5/325) TAB PO PRN ×3 (04:04→12:13)
[2018-08-29] MEDS: FUROSEMIDE 40 MG INJ IV SCH (06:00)
[2018-08-29] MEDS: SPIRONOLACTONE 25 MG TAB PO SCH (06:00)
[2018-08-29] MEDS: INSULIN ASPART [NOVOLOG] 3 ML PEN SC SCH ×3 (07:55→17:08)
[2018-08-29] MEDS: SEVELAMER CARBONATE 800 MG TABLET PO SCH ×3 (07:55→17:08)
[2018-08-29] MEDS: FAMOTIDINE 20 MG TAB PO SCH (08:14)
[2018-08-29] MEDS: LEVETIRACETAM 500 MG TAB PO SCH (08:14)
[2018-08-29] MEDS: MULTIVITAMINS THERAPEUTIC TAB PO SCH (08:14)
[2018-08-29] MEDS: RIFAXIMIN 550 MG TAB PO SCH (08:14)
[2018-08-29] MEDS: ZINC SULFATE 220 MG CAP PO SCH (08:14)
[2018-08-29] MEDS: ASCORBIC ACID 500 MG TAB PO SCH (08:14)
[2018-08-29] MEDS: SENNA TAB PO SCH (08:14)
[2018-08-29] MEDS: NIFEdipine (XL) 30 MG TAB PO SCH (08:15)
[2018-08-29] MEDS: ENOXAPARIN 30 MG/0.3 ML SYG SC SCH (08:15)
[2018-08-29] MEDS: PSYLLIUM 28% PACKET PO SCH (08:15)
[2018-08-29] MEDS: POLYETHYLENE GLYCOL 17 GM PACKET PO SCH (08:15)
--- NOTE | 2018-08-29 08:33 | PN ---
DATE: 08/29/2018 SUBJECTIVE: The patient is stable. No events overnight. Patient states his urinary output has been adequate. The patient is requesting to go home. No other events noted. OBJECTIVE: VITAL SIGNS: Blood pressure is 150/81, respiration 19, pulse 80, temperature 98.6. HEENT: Head is normocephalic. NECK: Supple. HEART: Regular rate. LUNGS: Show diminished breath sounds at the base. ABDOMEN: Soft, nontender to palpation without rebound or guarding. EXTREMITIES: Negative for clubbing, cyanosis, no edema, positive BKA. DERMATOLOGIC: No rashes. MUSCULOSKELETAL: No joint effusion. NEUROLOGIC: No change in exam. MEDICATIONS: The patient's medications have been reviewed. LABORATORY DATA: Has been reviewed. IMAGING STUDIES: Imaging studies have been reviewed. ASSESSMENT AND PLAN: 1. Nonoliguric acute kidney injury on top of chronic kidney disease stage IV with previous baseline around 2.5 mg/dL. Etiology of acute kidney injury is secondary to hemodynamics, possible progression of chronic kidney disease. Renal function has been fluctuating. At this point, will deescalate diu retic therapy. Continue current treatment plans, supportive care and renally dose all meds. 2. Volume overload, improving. Continue current regimen. We will change to oral Bumex. 3. Acute heart failure, clinically improving. Continue medical management. 4. Metabolic acidosis secondary to acute kidney injury. Continue to monitor. 5. Decompensated cirrhosis. The patient is status post paracentesis. Continue medical management. 6. Scrotal edema, improving. 7. Hypertension. Continue current blood pressure regimen. 8. History of right below knee amputation. 9. Seizure disorder. Dictated By: BON WHITAKER DO NR/NTS Conf#: [id number] DID#: [id number] CC: VADIM CORRIGAN MD; ELVI SPENCE MD; PEDRO BLANC MD;*EndCC*
--- NOTE | 2018-08-29 10:01 | PDOCDIS ---
Discharge Instructions CONDITION [id number] Patient Condition: [id number] Stable HOME CARE INSTRUCTIONS: [id number] Your diet recommendation is: [id number] carbohydrate-controlled/renal diet FOLLOW UP/APPOINTMENTS Follow-up Plan Follow-up with your primary care physician in 1 week. ELY DOYLE NP Aug 29, 2018 10:01
[2018-08-29] MEDS ORDERED: CLON0.1T14 PO (10:07)
[2018-08-29] MEDS ORDERED: SEVE800T7 PO (10:07)
[2018-08-29] MEDS ORDERED: DOXA2TAB61 PO (10:07)
[2018-08-29] MEDS ORDERED: SPIR25TA PO (10:07)
[2018-08-29] MEDS ORDERED: NIFE30TA2 PO (10:07)
[2018-08-29] MEDS ORDERED: HYDR-3672 PO (10:07)
[2018-08-29] MEDS ORDERED: CARV25TA79 PO (10:07)
[2018-08-29] MEDS ORDERED: BUME1TAB PO (10:07)
[2018-08-29] MEDS ORDERED: PSYL3.4P11 PO (10:07)
[2018-08-29] MEDS ORDERED: QUET25TA33 PO (10:07)
--- NOTE | 2018-08-29 10:16 | DS ---
Date/Time of Note Date/Time of Note DATE: 08/29/18 TIME: 10:12 Discharge Summary Admission/Discharge Info Admit Date/Time Aug 23, 2018 at 05:55 Discharge Date/Time Discharge Diagnosis Diffuse scrotal edema with pain,likely dependent w/HF/liver disease.stable Acute kidney injury on CKD stage IV.refused hd Decompensated advanced liver disease with cirrhosis/large volume ascites. -s/p paracentesis (2300 cc)- f/u fluid study Acute decompensated diastolic congestive heart failure on chronic CHF Hypertension DMII Untreated hepatitis C Obesity LLE ulcers W/s/p toe amputation, chronic Right BKA Seizure disorders, stable Chronic anemia of liver disease. Chronic pain syndrome Patient Condition: Stable Consults dr.rabbani dr.bejjani blackmon Procedures 08/23/2018: CT abdomen and pelvis. IMPRESSION: 1. Liver cirrhosis. Correlate with clinical history. Large amount of intra- abdominal/pelvic ascites. Generalized anasarca. 2. Diffuse thickening of the hirsch of the bladder, cannot exclude cystitis. 3. No gross evidence of bowel obstruction. Stool filled loops of large bowel suggestive of constipation. The appendix is within normal limits. 4. Mild atherosclerosis aorta. 5. Retroperitoneal sub centimeter lymph nodes, probably reactive. 6. No gross renal/ureteric calculi. No evidence of obstructive uropathy. 7. Large bilateral hydroceles and scrotal edema. 08/24/2018: PROCEDURE: Ultrasound guided paracentesis 08/23/2018: Ultrasound scrotum. IMPRESSION: 1. Bilateral hyperemic testes which may indicate orchitis. 2. Small left hydrocele. 3. Marked scrotal thickening bilaterally. 4. Otherwise unremarkable scrotal ultrasound. 08/23/2018: 2D echocardiogram Conclusions: Lower limits of normal systolic function. Normal left ventricular cavity size. Mild concentric left ventricular hypertrophy. Ejection fraction is visually estimated at 50-55 %. Tissue Doppler/Mitral Doppler indices are consistent with impaired relaxation (Stage I diastolic dysfunction). Normal appearance and function of the mitral valve with trace physiologic regurgitation. Normal appearance of the tricuspid valve. The estimated Peak RVSP is 23 mmHg. There is trace tricuspid regurgitation. Hx of Present Illness This is a 52-year-old male with a history of advanced liver cirrhosis/ascites diabetes, daily smoking, diabetic retinopathy, CHF, COPD, CKD, seizure disorders, left toe amputation, right BKA, initially presented to [facility] with worsening bilateral scrotal edema with intractable pain. Patient did not have any chest pain, palpitation, nausea, vomiting, dizziness, loss of consciousness, headache, numbness, tingling, fever, chills or other constitutional symptoms. Outside labs showed white count 6.9, hemoglobin 8.2, hematocrit 24.9, platelet 209, sodium 134, potassium 4.0, BUN 33, creatinine 4.08, glucose 322, ALT 16, AST 28, alkaline phosphatase 172, normal serum bilirubins, normal troponin. Patient was also seen by general surgeon Dr. Mason at [place] and deemed that patient's scrotal edema is dependent edema and there is no indication of suspecting for Fourniers' gangrene. Hospital Course :52 yo M w/CKD, advanced liver cirrhosis W/ascites, dm2,anemia,dm retinopathy,rt bka,lt toe amputee,dm ulcers,seizure disorders,chf,htn tx from [place] for scrotal swelling/pain... There was no evidence to suggest Fourniers' gangrene/testicular torsion. Scrotal ultrasound was reassuring. Most likely edema with pain is likely dependent with heart failure and liver disease. Patient symptoms improved with diuretics and elevation of scrotum on rolled pillows. Patient was being followed by urologist. Patient was also noted with acute kidney injury on CKD stage IV. Patient's renal function deteriorated further and was being followed by senior data mining analyst. Dialysis was proposed which patient adamantly refused. He was also noted with large volume ascites secondary to decompensated liver disease with cirrhosis. Patient had paracentesis. Cultures were negative and there was no evidence to suspect peritonitis. Patient was continued on diuretics and Aldactone as renal function permitted. He was instructed on 2 g sodium diet. Patient was also noted with poorly managed hypertension for which he was started on new antihypertensives. Patient was also noted with acute decompensated diastolic congestive heart failure on chronic CHF for which he was being followed by noise abatement engineer. Again, patient was managed with beta-blockers, Aldactone, and diuretics. His volume status remained stable. Patient was also noted with chronic left lower extremity venous stasis with pigmentation for which he was given wound care. He was continued on home medication for underlying comorbidities. Patient was also noted with untreated hepatitis C for which he was being followed by hyster driver who recommended outpatient follow-up. At this time, patient with no further pain. His labs and vital signs stable at baseline. Patient again continued to refuse hemodialysis and wanted to be discharged home with his home health service provided to his hospice. I also attempted to address his CODE STATUS multiple times in the hospital but patient wanted to be a full code. He also reported that he is getting hospice primarily to get home health service. Case management to check on home health status and patient to be discharged today with outpatient follow-up. Approximately 60-minute was spent on coordinating the discharge on this patient. Patient was seen in collaboration with Dr. Kaufman. Home Meds Active Scripts Psyllium Husk (with Sugar) (Metamucil Packet) 3.4 Gm Powd.pack, 1 PKT PO BID, #60 PKT Prov:DOYLE,ELY V. ELECTRIC MOTOR TESTER ASSEMBLER 08/29/18 Sevelamer Carbonate* (Renvela*) 800 Mg Tablet, 1600 MG PO WITH MEALS, #90 TAB Prov:DOYLE,ELY V. ELECTRIC MOTOR TESTER ASSEMBLER 08/29/18 Bumetanide* (Bumetanide*) 1 Mg Tablet, 1 MG PO BID DIURETICS, #60 TAB Prov:DOYLE,ELY V. ELECTRIC MOTOR TESTER ASSEMBLER 08/29/18 Quetiapine Fumarate* (Quetiapine Fumarate*) 25 Mg Tablet, 50 MG PO HS PRN for SLEEP, #30 TAB Prov:DOYLE,ELY V. ELECTRIC MOTOR TESTER ASSEMBLER 08/29/18 Spironolactone* (Aldactone*) 25 Mg Tablet, 25 MG PO DAILY@0600, #30 TAB Prov:DOYLE,ELY V. ELECTRIC MOTOR TESTER ASSEMBLER 08/29/18 Nifedipine (Procardia Xl) 30 Mg Tab.er.24, 60 MG PO BID, #60 TAB Prov:DOYLE,ELY V. ELECTRIC MOTOR TESTER ASSEMBLER 08/29/18 Doxazosin Mesylate* (Cardura*) 2 Mg Tablet, 2 MG PO HS, #30 TAB Prov:DOYLE,ELY V. ELECTRIC MOTOR TESTER ASSEMBLER 08/29/18 Clonidine Hcl* (Catapres*) 0.1 Mg Tablet, 0.1 MG PO Q6H PRN for sbp>160, #30 TAB Prov:DOYLE,ELY V. ELECTRIC MOTOR TESTER ASSEMBLER 08/29/18 Carvedilol* (Carvedilol*) 25 Mg Tablet, 50 MG PO BID, #60 TAB Prov:DOYLE,ELY V. ELECTRIC MOTOR TESTER ASSEMBLER 08/29/18 Hydralazine Hcl* (Hydralazine Hcl*) 50 Mg Tab, 100 MG PO Q8H, #120 TAB HOLD IF SBP<100 Prov:VIVEKELY Garnica ELECTRIC MOTOR TESTER ASSEMBLER 08/29/18 Reported Medications Lactose-Free Food (Ensure High Protein) 237 Ml Liquid, 237 ML PO 08/23/18 Aspirin* (Aspirin* Chew) 81 Mg Tab.chew, 81 MG PO DAILY, TAB.CHEW 08/23/18 Insulin Glargine* (Lantus*) 100 Unit/Ml Soln, 15 UNIT SC QHS, #1 VIAL 08/23/18 Insulin Isophan/Regular (Humulin 70/30) 100 Units/Ml Susp, 3 UNIT SC AC BREAKFAST DINNER, EA 08/23/18 Methadone Hcl* (Methadone*) 10 Mg Tab, 40 MG PO, TAB 07/06/18 Sennosides* (Senna Lax*) 8.6 Mg Tablet, 2 TAB PO QHS, TAB 07/06/18 Zinc Sulfate* (Zinc Sulfate*) 220 Mg Cap, 220 MG PO DAILY, CAP 07/06/18 Carvedilol* (Carvedilol*) 25 Mg Tablet, 25 MG PO BID, #60 TAB HOLD IF SBP<110 OR HR <60 07/06/18 Multivitamin (Multivitamins) 1 Each Capsule, 1 EACH PO, CAP 07/06/18 Clonidine Hcl* (Catapres*) 0.3 Mg Tablet, 0.3 MG PO Q8 PRN for ELEVATED BLOOD PRESSURE, TAB FOR SBP>170 07/06/18 Ascorbic Acid (Vitamin C) 500 Mg Tab, 1000 MG PO BID, TAB 07/06/18 Amlodipine Besylate* (Norvasc*) 10 Mg Tablet, 10 MG PO BID, TAB 07/06/18 Docusate Sodium* (Colace*) 100 Mg Capsule, 200 MG PO QPM, #30 CAP 07/06/18 Docusate Sodium* (Colace*) 100 Mg Capsule, 200 MG PO QAM, #60 CAP 07/06/18 Glipizide* (Glipizide*) 5 Mg Tablet, 5 MG PO BID, TAB 07/05/18 Levetiracetam* (Keppra*) 500 Mg Tablet, 500 MG PO BID, TAB 07/05/18 Follow-up Plan Follow-up with your primary care physician in 1 week. Primary Care Provider [facility] Pending Labs Laboratory Tests Test 08/28/18 11:57 08/28/18 16:43 08/28/18 21:17 08/29/18 04:10 Bedside 84 123 120 103 Glucose mg/dL (70-220) mg/dL (70-220) mg/dL (70-220) mg/dL (70-220) Test 08/29/18 06:07 08/29/18 08:11 Sodium Level 141 mmol/L (135-144 ) Potassium 4.6 Level mmol/L (3.5-5.1 ) Chloride Level 115 mmol/L (97-110) Carbon Dioxide 21 Level mmol/L (21-31) Anion Gap 5 (5-13) Blood Urea 56 mg/dl (7-20) Nitrogen Creatinine 4.84 mg/dl (0.61-1.2 4) Est Glomerular 13 mL/min (>60) Filtrat Rate mL/min Glucose Level 61 mg/dl (70-220) Calcium Level 7.5 mg/dl (8.4-10.2 ) Free Thyroxine 1.34 ng/dl (0.64-1.7 9) Total 0.81 Triiodothyronin ng/ml (0.97-1.6 e 9) Bedside 96 Glucose mg/dL (70-220) ELY DOYLE V. ELECTRIC MOTOR TESTER ASSEMBLER Aug 29, 2018 10:16
--- NOTE | 2018-08-29 16:47 | CONS ---
Assessment/Plan Assessment/Plan Hospital Course (Demo Recall) IMPRESSION: 1. Congestive heart failure, diastolic , acute on chronic-EF 50-55 2. Premature ventricular contractions by telemetry, rule out acute coronary syndrome. 3. Hypertension-improving on oral antihypertensives 4. Renal failure. 5. Liver cirrhosis. 6. Ascites, status post paracentesis. 7. Anemia, worsening. 8. Borderline urinary tract infection. 9. Scrotal edema. 10. Hydrocele. REcc: -Tele -Continue coreg/hydralazine/procardia XL as patient will comply -Continue bumex diuresis -Contineu aldactone -Lasix held in the setting of woresning renal failure -? need for HD Consultation Date/Type/Reason Admit Date/Time Aug 23, 2018 at 05:55 Initial Consult Date 08/25/18 Type of Consult Cardiology Reason for Consultation CHF Requesting Provider: VADIM CORRIGAN MD Date/Time of Note DATE: 08/29/18 TIME: 16:43 Exam/Review of Systems Vital Signs Vitals Vital Signs Date Temp Pulse Resp B/P (MAP) Pulse Ox O2 O2 Flow FiO2 Time Delivery Rate 08/29/18 Room Air 16:10 08/29/18 98.7 75 19 151/89 96 04:00 (109) Intake and Output 08/28/18 08/28/18 08/29/18 1515:00 23:00 07:00 IntakeIntake Total 500 ml 1700 ml 660 ml OutputOutput Total 800 ml 2900 ml 500 ml BalanceBalance -300 ml -1200 ml 160 ml Exam Exam Review of Systems: CONSTITUTIONAL: No fevers, chills. PULMONARY: No sob CARDIOVASCULAR: No chest pain/palpitations GASTROINTESTINAL: No nausea/vomiting. GENITOURINARY: No hematuria/dysuria. MUSCULOSKELETAL: No myagias/arthalgias. PSYCHIATRIC: The patient denies depression. NEUROLOGIC: No weakness Constitutional: alert Psych: no complaints ENMT: mucosa pink and moist Neck: supple, jvd (9 cm water) Respiratory: diminished breath sounds (at bases/B) Cardiovascular: regular rate and rhythm Gastrointestinal: soft, non-tender Musculoskeletal: muscle weakness (generalized) Extremities: edema (trace/B) Labs Result Diagram: 08/26/18 0630 08/29/18 0607 Results 24hrs Laboratory Tests Test 08/28/18 21:17 08/29/18 04:10 08/29/18 06:07 08/29/18 08:11 Bedside Glucose 120 103 96 Sodium Level 141 Potassium Level 4.6 Chloride Level 115 H Carbon Dioxide Level 21 Anion Gap 5 Blood Urea Nitrogen 56 H Creatinine 4.84 H Est Glomerular Filtrat 13 L Rate mL/min Glucose Level 61 #L Calcium Level 7.5 L Free Thyroxine 1.34 Total Triiodothyronine 0.81 L Test 08/29/18 12:09 Bedside Glucose 86 Medications Medications Current Medications Ascorbic Acid (Vitamin C) 1,000 mg BID PO Last administered on 08/29/18 08:14; Admin Dose 1,000 MG; Start 08/23/18 at 11:00 Levetiracetam (Keppra) 500 mg BID PO Last administered on 08/29/18 08:14; Admin Dose 500 MG; Start 08/23/18 at 11:00 Multivitamins Therapeutic (Theragran) 1 tab DAILY PO Last administered on 08/29/18 08:14; Admin Dose 1 TAB; Start 08/23/18 at 11:00 Clonidine (Catapres) 0.1 mg Q6H PRN PO sbp>160 Last administered on 08/27/18 11:55; Admin Dose 0.1 MG; Start 08/23/18 at 10:00 IV Flush (NS 3 ml) 3 ml PER PROTOCOL IV ; Start 08/23/18 at 10:00 Miscellaneous Information ([facility] This patient huog... PRN PRN XX WOUND CARE; Start 08/23/18 at 10:30 Diagnostic Test (Pha) (Accu-Chek) 1 ea 02 XX Last administered on 08/29/18at 02:00; Admin Dose 1 EA; Start 08/24/18 at 02:00 Insulin Aspart (Novolog Insulin Pen) NOVOLOG *MILD* ALGORITHM WITH MEALS BEDTIME SC Last administered on 08/27/18 17:08; Admin Dose 1 UNIT; Start 08/23/18 at 17:55 Zinc Sulfate (Zinc Sulfate) 220 mg DAILY PO Last administered on 08/29/18 08:14; Admin Dose 220 MG; Start 08/24/18 at 09:00; Stop 09/04/18 at 09:01 Quetiapine Fumarate (Seroquel) 50 mg HS PRN PO SLEEP Last administered on 08/28/18 21:42; Admin Dose 50 MG; Start 08/24/18 at 01:30 Senna (Senokot) 2 tab Q12 PO Last administered on 08/29/18 08:14; Admin Dose 2 TAB; Start 08/24/18 at 21:00 Psyllium Hydrophilic Mucilloid (Metamucil) 1 pkt BID PO Last administered on 08/28/18 08:59; Admin Dose 1 PKT; Start 08/24/18 at 09:30 Miscellaneous Information 1 ea NOTE XX ; Start 08/24/18 at 10:00 Glucose (Glutose) 15 gm Q15M PRN PO DECREASED GLUCOSE; Start 08/24/18 at 10:00 Glucose (Glutose) 22.5 gm Q15M PRN PO DECREASED GLUCOSE; Start 08/24/18 at 10:00 Dextrose (D50w Syringe) 25 ml Q15M PRN IV DECREASED GLUCOSE; Start 08/24/18 at 10:00 Dextrose (D50w Syringe) 50 ml Q15M PRN IV DECREASED GLUCOSE; Start 08/24/18 at 10:00 Glucagon (Glucagen) 1 mg Q15M PRN IM DECREASED GLUCOSE; Start 08/24/18 at 10:00 Glucose (Glutose) 15 gm Q15M PRN BUCCAL DECREASED GLUCOSE; Start 08/24/18 at 10:00 Doxazosin Mesylate (Cardura) 2 mg HS PO Last administered on 08/28/18 21:26; Admin Dose 2 MG; Start 08/25/18 at 21:00 Carvedilol (Coreg) 50 mg BID PO Last administered on 08/29/18 08:15; Admin Dose 50 MG; Start 08/24/18 at 21:00 Spironolactone (Aldactone) 25 mg DAILY@0600 PO Last administered on 08/28/18 06:14; Admin Dose 25 MG; Start 08/25/18 at 06:00 Hydralazine HCl (Apresoline) 10 mg Q4H PRN IV SBP>170 Last administered on 08/27/18 15:54; Admin Dose 10 MG; Start 08/24/18 at 14:30 Nifedipine (Procardia Xl) 60 mg BID PO Last administered on 08/29/18 08:15; Admin Dose 60 MG; Start 08/24/18 at 19:15 Rifaximin (Xifaxan) 550 mg BID PO Last administered on 08/29/18 08:14; Admin Dose 550 MG; Start 08/25/18 at 21:00 Al Hydrox/Mg Hydrox/Simethicone (Mag-Al Plus) 30 ml Q6H PRN PO GASTROINTESTINAL UPSET; Start 08/25/18 at 23:00 Sevelamer Carbonate (Renvela) 1,600 mg WITH MEALS PO Last administered on 08/29/18 08:13; Admin Dose 1,600 MG; Start 08/26/18 at 11:50 Oxycodone/ Acetaminophen (Percocet (5/ 325)) 1 tab Q4H PRN PO MODERATE PAIN LEVEL 4-6; Start 08/26/18 at 12:00 Oxycodone/ Acetaminophen (Percocet (5/ 325)) 2 tab Q4H PRN PO SEVERE PAIN LEVEL 7-10 Last administered on 08/29/18 12:13; Admin Dose 2 TAB; Start 08/26/18 at 12:00 Polyethylene Glycol (Miralax) 17 gm DAILY PO Last administered on 08/28/18 09:01; Admin Dose 17 GM; Start 08/27/18 at 09:00 Ondansetron HCl (Zofran Inj) 4 mg Q6H IV Last administered on 08/29/18 08:19; Admin Dose 4 MG; Start 08/26/18 at 15:30 Insulin Glargine (Lantus) 10 units QHS SC Last administered on 08/28/18 22:23; Admin Dose 10 UNITS; Start 08/27/18 at 21:00 Famotidine (Pepcid) 20 mg DAILY PO Last administered on 08/29/18 08:14; Admin Dose 20 MG; Start 08/28/18 at 09:00 Enoxaparin Sodium (Lovenox) 30 mg DAILY SC Last administered on 08/28/18 09:08; Admin Dose 30 MG; Start 08/28/18 at 09:00 Bumetanide (Bumex) 1 mg BID DIURETICS PO ; Start 08/29/18 at 18:00 Hydralazine HCl (Apresoline) 100 mg Q8H PO ; Start 08/29/18 at 14:00 JESSA PATTERSON Aug 29, 2018 16:47
[2018-08-29] MEDS ORDERED: BUMETANIDE 1 MG TAB PO SCH (18:00)
== END 2018-08-29 17:30 | disposition home health service (06) | DRG 291 ==
LOC: TEL 05:55
PROVIDERS: ADMIT Internal Medicine; ATTEND Internal Medicine
PROC: 0W9G3ZZ Drainage of Peritoneal Cavity, Percutaneous Approach (ICD-10-PCS; principal; 2018-08-24)
DX: I13.0 Hypertensive heart and chronic kidney disease with heart failure and stage 1 through stage 4 chronic kidney disease, or unspecified chronic kidney disease (principal); I50.33 Acute on chronic diastolic (congestive) heart failure; N18.4 Chronic kidney disease, stage 4 (severe); N17.9 Acute kidney failure, unspecified; R18.8 Other ascites; N39.0 Urinary tract infection, site not specified; E11.22 Type 2 diabetes mellitus with diabetic chronic kidney disease; Z89.511 Acquired absence of right leg below knee; N50.89 Other specified disorders of the male genital organs; K74.60 Unspecified cirrhosis of liver; Z72.0 Tobacco use; J44.9 Chronic obstructive pulmonary disease, unspecified; G40.909 Epilepsy, unspecified, not intractable, without status epilepticus; N43.3 Hydrocele, unspecified; Z89.422 Acquired absence of other left toe(s)
CPT/HCPCS: 71045; 74176; 76870; 80048; 80053; 80061; 81001; 81003; 82043; 82550; 82553; 82962; 83036; 83615; 83735; 83880; 84100; 84155; 84157; 84300; 84439; 84443; 84480; 84484; 85025; 85610; 86704; 86706; 86803; 87070; 87081; 87102; 87116; 87340; 88104; 88305; 89051; 93005; 93306; J0360; J1170; J1650; J1815; J1940; J2270; J2405